=== PATIENT | female | born 1960 | race Caucasian/White ===

== ENCOUNTER 2021-07-18 15:13 | Observation (INO) | payer OTHER, SELFPAY ==
[2021-07-18] VITALS (9 sets, daily range): BP systolic 123–189; BP diastolic 71–100; PULSE 93–164; RESP 18; TEMP 36.7–36.8; O2SAT 92–99; BMI 25.8; BMI 29.2; BMI 29.7
--- NOTE | 2021-07-18 15:11 | ECG_ITS ---
APPROVED REPORT Exam: Resting ECG HR:145 bpm ECG Measurements Heart Rate 145 AXES QRSd 85 QRS -20 QT 290 T 50 QTc 374 Conclusion ATRIAL FLUTTER/TACHYCARDIA WITH RAPID VENTRICULAR RESPONSE LOW QRS VOLTAGE IN PRECORDIAL LEADS [QRS DEFLECTION < 1.0 mV IN CHEST LEADS] ANTEROSEPTAL MYOCARDIAL INFARCTION , PROBABLY OLD [40+ ms Q WAVE IN V1-V4] ABNORMAL ECG UNCONFIRMED REPORT Electronically signed by : Rudolph Young MD 07/19/2021 16:44:08
[2021-07-18 15:38] LABS: Basophils # 0.1 K/mm3 (0-0.2); Basophils % 0.8 % (0.1-2.0); Eosinophils % 0.2 % (0.1-12.0); Hematocrit 47.4 % (37.0-47.0); Hemoglobin 15.3 g/dL (12.2-16.2); Lymphocytes # 1.2 K/mm3 (0.7-4.5); Lymphocytes % 14.2 % (10-50); Mean Corpuscular HGB Conc 32.3 g/dL (31.8-35.4); Mean Corpuscular Hemoglobin 35.6 pg (27.0-31.2); Mean Platelet Volume 7.9 fl (7.4-10.4); Monocytes # 0.4 K/mm3 (0.1-1.0); Monocytes % 4.4 % (1.7-9.3); Neutrophils % 80.4 % (37.0-80.0); Platelet Count 324 K/mm3 (142-424); Red Blood Count 4.31 M/mm3 (4.20-5.40); Red Cell Distribution Width 13.4 % (11.5-17.5); White Blood Count 8.7 K/mm3 (4.8-10.8)
[2021-07-18 15:43] LABS: Chloride 98 mmol/L (98-107); Potassium 3.5 mmoL/L (3.5-5.1); Sodium 135 mmol/L (136-145)
[2021-07-18 15:45] LABS: Alanine Aminotransferase 85 U/L (12-78); Aspartate Amino Transferase 149 U/L (14-36); Blood Urea Nitrogen 6 mg/dl (7-17); Creatinine Clearance Estimated 72 mL/min (50-200); Estimated Glomerular Filt Rate 73 ml/min (>60); GFR (African American) 88 ML/MIN (>60)
[2021-07-18 15:46] LABS: Albumin/Globulin Ratio 1.4 (1.1-1.8); Alkaline Phosphatase 97 U/L (38-126); Anion Gap 25.5 mEq/L (5-15); Bilirubin,Total 0.8 mg/dl (0.2-1.3); Calcium 8.9 mg/dl (8.4-10.2); Carbon Dioxide 15 mmol/L (22.0-30.0); Globulin 3.5 g/dL (1.3-3.2); Glucose 136 mg/dl (74-100); Total Protein,Serum 8.5 g/dl (6.3-8.2)
[2021-07-18 15:47] LABS: Ethyl Alcohol 67 mg/dl (0-10)
--- NOTE | 2021-07-18 15:47 | XR_ITS ---
FINAL REPORT TECHNIQUE: Single view chest CLINICAL HISTORY: tachy, szr, nonsmoker, no sx to chest FINDINGS: A single view of the chest was obtained. The heart and mediastinum are within normal limits. The lungs are clear. There is no pneumothorax. Osseous structures are unremarkable. IMPRESSION: No acute cardiopulmonary process. Reviewed, Interpreted and Dictated by Jaylan Amezcua III, MD Transcribed by Johanna Mcbride Authenticated by Jaylan Amezcua III, MD on 07/18/2021 04:52:56 PM [facility]
--- NOTE | 2021-07-18 15:48 | HMH.EDGENADL ---
ED Disposition Clinical Impression: Seizure Alcohol withdrawal Qualifiers: Complication of substance-induced condition: with unspecified complication Qualified Code(s): F10.239 - Alcohol dependence with withdrawal, unspecified Disposition: Admitted As Inpatient Condition on Discharge: Good - Critical Care Critical Care Time: No Attestation: On 07/18/21, the high probability of a clinically significant, sudden or life threatening deterioration of the following system(s) required my full and direct attention, intervention and personal management. The time I documented below is in addition to time spent performing reported procedures but includes the following listed in this critical care notation. Medical Decision Making - Medical Records Medical records reviewed: Yes: I reviewed the patient's medical records. - Duy Inquiry Pt receiving controlled substance: No Vital Signs: 07/18/21 15:20 07/18/21 16:00 07/18/21 16:30 Temperature 98.2 F Temperature Source Oral Pulse Rate 146 H 127 H Pulse Rate [Left Radial] 164 H Respiratory Rate 18 Blood Pressure 189/100 H 145/83 H Blood Pressure [Right Arm] 173/98 H Blood Pressure Mean [Right Arm] 123 02 Sat by Pulse Oximetry 97 99 95 Oxygen Delivery Method Room Air Room Air 07/18/21 17:00 07/18/21 17:30 07/18/21 18:00 Temperature Temperature Source Pulse Rate 129 H 129 H 115 H Pulse Rate [Left Radial] Respiratory Rate Blood Pressure 126/73 152/85 H 123/71 Blood Pressure [Right Arm] Blood Pressure Mean [Right Arm] 02 Sat by Pulse Oximetry 97 95 92 L Oxygen Delivery Method 07/18/21 18:30 07/18/21 18:44 Temperature 98.2 F Temperature Source Oral Pulse Rate 113 H 113 H Pulse Rate [Left Radial] Respiratory Rate 18 Blood Pressure 127/73 127/73 Blood Pressure [Right Arm] Blood Pressure Mean [Right Arm] 02 Sat by Pulse Oximetry 96 Oxygen Delivery Method Room Air - Lab Data Lab Results 07/18/21 15:30: WBC 8.7, RBC 4.31, Hgb 15.3, Hct 47.4 H, MCV 110.0 H, MCH 35.6 H, MCHC 32.3, RDW 13.4, Plt Count 324, MPV 7.9, Neut % (Auto) 80.4 H, Lymph % (Auto) 14.2, [place] % (Auto) 4.4, Eos % (Auto) 0.2, Baso % (Auto) 0.8, Neut # (Auto) 7.0, Lymph # (Auto) 1.2, [place] # (Auto) 0.4, Eos # (Auto) 0.0, Baso # (Auto) 0.1 07/18/21 15:30: Sodium 135 L, Potassium 3.5, Chloride 98, Carbon Dioxide 15 L, Anion Gap 25.5 H, BUN 6 L, Creatinine 0.80, Estimated Creat Clear 72, Estimated GFR 73, Est GFR ( Amer) 88, Glucose 136 H, Calcium 8.9, Total Bilirubin 0.8, AST 149 H, ALT 85 H, Alkaline Phosphatase 97, Troponin I 0.02, Total Protein 8.5 H, Albumin 5.0, Globulin 3.5 H, Albumin/Globulin Ratio 1.4 07/18/21 15:30: Plasma/Serum Alcohol 67 H 07/18/21 15:34: Phosphorus 3.6, Magnesium 2.1 07/18/21 16:16: SARS-CoV-2 (PCR) Not detected, Influenza A Untype (PCR) Not detected, Influenza Type B (PCR) Not detected Result diagrams: 07/19/21 05:26 07/19/21 05:26 Orders (Tests/Meds): ED MEDICATIONS Generic Name Dose Route Start Last Admin Trade Name Freq PRN Reason Stop Dose Admin Acetaminophen 650 mg 07/19/21 02:59 07/18/21 23:15 Acetaminophen 325mg Tab PO 08/18/21 02:58 650 mg Q6HP PRN Administration Mild Pain Clonidine HCl 0.1 mg 07/18/21 18:59 Clonidine 0.1mg Tablet PO 08/17/21 18:58 BID PRN Adrenergic Symptoms Folic Acid 1 mg 07/18/21 18:35 07/18/21 20:05 Folic Acid 1mg Tablet PO 07/18/21 18:36 Not Given ONCE ONE Folic Acid 1 mg 07/18/21 18:35 07/18/21 20:11 Folic Acid 1mg Tablet PO 08/17/21 18:34 Not Given DAILY VENU Folic Acid 1 mg 07/19/21 09:00 Folic Acid 1mg Tablet PO 08/18/21 08:59 DAILY VENU Levetiracetam 1,000 mg/ Sodium 110 mls @ 220 mls/hr 07/18/21 18:35 07/18/21 20:04 Chloride IV 07/18/21 19:04 Not Given ONCE ONE Lorazepam 1 mg 07/18/21 18:35 07/18/21 20:09 Lorazepam 2mg/Ml Vial IV 07/18/21 18:36 1 mg ONCE ONE Administration
[2021-07-18 15:58] LABS: Troponin I 0.02 ng/ml (0.00-0.034)
--- NOTE | 2021-07-18 16:04 | PC.NURSE ---
Radiology at bedside
[2021-07-18 16:25] LABS: Coronavirus 19, PCR Not Detected (NotDetected); Influenza A, PCR Not Detected (NotDetected); Influenza B, PCR Not Detected (NotDetected)
--- NOTE | 2021-07-18 16:39 | ECG_ITS ---
APPROVED REPORT Exam: Resting ECG HR:119 bpm ECG Measurements Heart Rate 119 AXES [place] 166 P 63 QRSd 89 QRS 1 QT 333 T 55 QTc 404 Conclusion SINUS TACHYCARDIA LOW QRS VOLTAGE IN PRECORDIAL LEADS [QRS DEFLECTION < 1.0 mV IN CHEST LEADS] SEPTAL MYOCARDIAL INFARCTION , PROBABLY OLD [40+ ms Q WAVE IN V1/V2] ABNORMAL ECG UNCONFIRMED REPORT Electronically signed by : Rudolph Young MD 07/19/2021 16:43:55
--- NOTE | 2021-07-18 18:03 | PC.NURSE ---
Patient on bedpan
--- NOTE | 2021-07-18 18:23 | PC.NURSE ---
called report to cuco quintanilla
[2021-07-18 18:47] LABS: Magnesium 2.1 mg/dl (1.6-2.3); Phosphorous 3.6 mg/dl (2.5-4.5)
[2021-07-19] VITALS: BP 115/82; PULSE 96; RESP 18; TEMP 37.1; O2SAT 95
--- NOTE | 2021-07-19 02:34 | PC.NURSE ---
PATIENT SLIGHTLY CONFUSED. GOT OUT OF BED AND CAME OUT OF ROOM ASKING IF SHE WAS GETTING A BREAKFAST TRAY. INFORMED HER OF TIME AND OFFERED HER A SNACK. PATIENT DECLINED AT THIS TIME. ASSISTED PATIENT BACK TO BED. PATIENT SITTING UP IN BED WATCHING TV AT THIS TIME.
[2021-07-19 04:00] VITALS: BP 113/80; PULSE 83; RESP 16; TEMP 36.7; O2SAT 98
[2021-07-19 05:01] VITALS: BMI 29.4
--- NOTE | 2021-07-19 05:07 | PC.NURSE ---
PATIENT HAS BEEN RESTLESS THROUGHOUT THE SHIFT. SHE AMBULATED A COUPLE TIMES TO THE DOOR AND WAS CONFUSED. REORIENTED EASILY. PATIENT DISLODGED IV SITE DURING PERIOD OF CONFUSION. PATIENT WAS GIVEN A TOTAL BATH AND LINENS CHANGED THIS SHIFT. SHE HAD ONE INCONTINENT STOOL EPISODE. PATIENT HAS USED THE BSC THE REMAINDER OF THE SHIFT. CIWA:2. NO ACU
[2021-07-19 05:11] VITALS: PULSE 80
[2021-07-19 05:50] LABS: Basophils % 0.2 % (0.1-2.0); Eosinophils # 0.1 K/mm3 (0.0-0.4); Eosinophils % 0.9 % (0.1-12.0); Hematocrit 43.2 % (37.0-47.0); Lymphocytes # 0.9 K/mm3 (0.7-4.5); Lymphocytes % 17.8 % (10-50); Mean Corpuscular HGB Conc 31.8 g/dL (31.8-35.4); Mean Corpuscular Hemoglobin 35.8 pg (27.0-31.2); Mean Corpuscular Volume 112.5 fl (81-99); Mean Platelet Volume 8.2 fl (7.4-10.4); Monocytes # 0.3 K/mm3 (0.1-1.0); Neutrophils # 3.9 K/mm3 (1.8-7.8); Neutrophils % 74.9 % (37.0-80.0); Platelet Count 221 K/mm3 (142-424); Red Blood Count 3.84 M/mm3 (4.20-5.40); Red Cell Distribution Width 13.5 % (11.5-17.5); White Blood Count 5.2 K/mm3 (4.8-10.8)
[2021-07-19 05:53] LABS: Chloride 108 mmol/L (98-107); Potassium 3.7 mmoL/L (3.5-5.1); Sodium 137 mmol/L (136-145)
[2021-07-19 05:56] LABS: Alanine Aminotransferase 60 U/L (12-78); Albumin/Globulin Ratio 1.4 (1.1-1.8); Alkaline Phosphatase 71 U/L (38-126); Anion Gap 8.7 mEq/L (5-15); Aspartate Amino Transferase 86 U/L (14-36); Bilirubin,Total 1.2 mg/dl (0.2-1.3); Blood Urea Nitrogen 8 mg/dl (7-17); Carbon Dioxide 24 mmol/L (22.0-30.0); Creatinine Clearance Estimated 68 mL/min (50-200); Estimated Glomerular Filt Rate 85 ml/min (>60); GFR (African American) 103 ML/MIN (>60); Globulin 2.9 g/dL (1.3-3.2); Total Protein,Serum 6.9 g/dl (6.3-8.2)
[2021-07-19 05:57] LABS: Calcium 8.4 mg/dl (8.4-10.2); Glucose 91 mg/dl (74-100)
[2021-07-19 05:59] LABS: Hemoglobin 13.8 g/dL (12.2-16.2)
--- NOTE | 2021-07-19 06:06 | PC.NURSE ---
PATIENT AMBULATING IN ROOM. REPORTS SHE IS RESTLESS. ASSISTED PATIENT BACK TO BED. INSTRUCTED PATIENT TO CALL OUT FOR ASSISTANCE NEEDED.
--- NOTE | 2021-07-19 06:40 | PC.NURSE ---
DR. HAGER AT BEDSIDE ROUNDING.
--- NOTE | 2021-07-19 07:25 | HMH.PHAVTE ---
[facility] Pharmacy VTE Monitoring - Patient Demographics Admission date: 07/18/21 Report Date: 07/19/21 Time: 07:25 Allergies/Adverse Reactions: Patient Allergies amoxicillin Allergy (Mild, Verified 07/18/21 19:46) ANAPHYLACTIC SHOCK cephalexin [From Keflex] Allergy (Mild, Verified 07/18/21 19:46) S-ANAPHYLACTIC SHOCK ciprofloxacin [From Cipro] Allergy (Mild, Verified 07/18/21 19:46) ANAPHYLACTIC SHOCK erythromycin base Allergy (Mild, Verified 07/18/21 19:46) ANAPHYLACTIC SHOCK Sulfa (Sulfonamide Antibiotics) Allergy (Mild, Verified 07/18/21 19:46) ANAPHYLACTIC SHOCK Tetanus Vaccines and Toxoid Allergy (Mild, Verified 07/18/21 19:46) ANAPHYLACTIC SHOCK Height: 1.57 m Weight: 72.5 kg Patient Problems: Current Active Problems Seizure (Acute) Alcohol withdrawal (Acute) - VTE Risk Labs: VTE Related Lab Results Hgb 13.8 g/dL (12.2-16.2) 07/19/21 05:26 Hct 43.2 % (37.0-47.0) 07/19/21 05:26 Plt Count 221 K/mm3 (142-424) D 07/19/21 05:26 BUN 8 mg/dl (7-17) D 07/19/21 05:26 Creatinine 0.70 mg/dl (0.52-1.04) 07/19/21 05:26 Estimated Creat Clear 68 mL/min (50-200) 07/19/21 05:26 VTE Score: 1 VTE Risk Level: Very Low Risk - Prophylaxis VTE Prophylaxis Ordered?: Yes Types of VTE Prophylaxis: TEDS Knee High Location of Applied Device: Bilateral Lower Extremeties
--- NOTE | 2021-07-19 07:47 | HMH.HPDC ---
General - General Admission date:: 07/18/21 Discharge date: 07/19/21 *Admission Date: 07/18/21 *Chief complaint: Seizure-like activity *History of present illness: 60-year-old female with diagnosis of complex partial seizures presented to the emergency department after having seizure-like activity at home that was not typical of her normal complex partial seizures. Patient states her usual seizure starts with an aura of strange sensation and then tingling and abnormal movements in the right arm and leg. Yesterday there was an aura but patient repeatedly fails to describe her seizure that was different . She did have pretty significant vertigo yesterday with associated vomiting. She reports vertigo occurs every 1 to 2 weeks and is generally transient. Her neurologist is Dr. Nica Rudd. Her primary care provider is Aspen Alcala APRN. Patient reports over the last year she is fallen on hard times due to the loss of multiple family members during the pandemic as well as leaving her previous job. Lack of work and health insurance has made her medication quite costly and the Topamax extended release that the patient takes for her complex partial seizures has been spread out as patient does not take it regularly. She reports the medication cost approximately $3000 per month. She has not contacted any of her medical providers regarding alternatives. In the emergency department patient was tremulous with tachycardia and elevated blood pressure. It was revealed in the ER that patient drinks 4 drinks of vodka per day. Through further discussion patient considers to drink approximately 4 ounces. Patient was given Ativan with improvement in tremulouness, tachycardia and blood pressure. She was continued on scheduled Ativan overnight along with as needed Ativan for elevated CIWA scales. This morning patient reports feeling at baseline. She is ambulated in her room without difficulty. [facility] History I have reviewed the patient's past medical history: Yes Medical History: Reports:: Seizures *Have you ever received a pneumonia vaccine?: No *Have you received a flu vaccine this season?: Yes Other Surgeries: Yes: No Previous Surgery - *Social History Last grade of school completed: Advanced degree Smoking Status: Never smoker Alcohol Intake: current Alcohol Intake Frequency:: 3 or more drinks per day *Occupational Status:: employed *Travel in the last 8 weeks: None Family Hx:: Non-contributory Review of Systems - Review of Systems Review of systems:: pertinent systems reviewed and negative unless documented below Exam Vital signs and Labs for Last 24 Hours: Temp Pulse Resp BP Pulse Ox 98.1 F 80 16 113/80 98 07/19/21 04:00 07/19/21 05:11 07/19/21 04:00 07/19/21 04:00 07/19/21 04:00 Laboratory Results - last 24 hr 07/18/21 15:30: WBC 8.7, RBC 4.31, Hgb 15.3, Hct 47.4 H, MCV 110.0 H, MCH 35.6 H, MCHC 32.3, RDW 13.4, Plt Count 324, MPV 7.9, Neut % (Auto) 80.4 H, Lymph % (Auto) 14.2, [place] % (Auto) 4.4, Eos % (Auto) 0.2, Baso % (Auto) 0.8, Neut # (Auto) 7.0, Lymph # (Auto) 1.2, [place] # (Auto) 0.4, Eos # (Auto) 0.0, Baso # (Auto) 0.1 07/18/21 15:30: Sodium 135 L, Potassium 3.5, Chloride 98, Carbon Dioxide 15 L, Anion Gap 25.5 H, BUN 6 L, Creatinine 0.80, Estimated Creat Clear 72, Estimated GFR 73, Est GFR ( Amer) 88, Glucose 136 H, Calcium 8.9, Total Bilirubin 0.8, AST 149 H, ALT 85 H, Alkaline Phosphatase 97, Troponin I 0.02, Total Protein 8.5 H, Albumin 5.0, Globulin 3.5 H, Albumin/Globulin Ratio 1.4 07/18/21 15:30: Plasma/Serum Alcohol 67 H 07/18/21 15:34: Phosphorus 3.6, Magnesium 2.1 07/18/21 16:16: SARS-CoV-2 (PCR) Not detected, Influenza A Untype (PCR) Not detected, Influenza Type B (PCR) Not detected 07/19/21 05:26: WBC 5.2 D, RBC 3.84 L, Hgb 13.8, Hct 43.2, MCV 112.5 H, MCH 35.8 H, MCHC 31.8, RDW 13.5, Plt Count 221 D, MPV 8.2, Neut % (Auto) 74.9, Lymph % (Auto) 17.8, [place] % (Auto) 6.0, Eos % (Auto) 0.9, Baso % (A
[2021-07-19 08:00] VITALS: BP 116/73; PULSE 103; PULSE 99; RESP 20; O2SAT 99
--- NOTE | 2021-07-19 09:10 | HMH.PHAINT ---
home medication list verified using list from [facility] and pt interview
== END 2021-07-19 09:42 | disposition home or self-care (01) ==
LOC: ER 16:49 → ICU 18:28
PROVIDERS: Admitting Provider Family Medicine; Emergency Provider Emergency Medicine; PCP Nurse Practitioner Family; Visit Provider Family Medicine
DX: F10.239 Alcohol dependence with withdrawal, unspecified (principal); Y90.3 Blood alcohol level of 60-79 mg/100 ml; G40.909 Epilepsy, unspecified, not intractable, without status epilepticus; Z20.822 Contact with and (suspected) exposure to COVID-19
CPT/HCPCS: 36415; 71045; 80053; 83735; 84100; 84484; 85025; 93005; 96365; 96366; 96375; 99284; C9803; G0378; J1953; U0003; U0005

== ENCOUNTER 2022-01-29 08:23 | Emergency (ER) | payer OTHER, SELFPAY ==
[2022-01-29 08:23] VITALS: BP 157/96; PULSE 114; RESP 18; TEMP 36.8; O2SAT 100; BMI 29.2
--- NOTE | 2022-01-29 08:28 | PC.NURSE ---
Retrieved pt from upstairs pt room, had seizure, RN montse in ED room attempting to get IV access
[2022-01-29 08:35] VITALS: BP 157/96; PULSE 111; RESP 20; O2SAT 100
--- NOTE | 2022-01-29 08:35 | PC.NURSE ---
Seizure pads in place and daughter at bedside. Warm blankets provided, pt placed back onto monitor and labs have been sent.
--- NOTE | 2022-01-29 08:37 | XR_ITS ---
PROCEDURE INFORMATION: Exam: XR Chest Exam date and time: 01/29/2022 9:08 AM Age: 61 years old Clinical indication: Other: Siezure; Patient HX: 0 chest comoplaints; Additional info: Seizure TECHNIQUE: Imaging protocol: Radiologic exam of the chest. Views: 1 view. COMPARISON: CR XR CHEST PORTABLE 07/18/2021 4:01 PM FINDINGS: Lungs: Mild interstitial prominence and chronic granulomatous disease. Pleural spaces: No pleural effusion. Heart/Mediastinum: No cardiomegaly. Bones/joints: Unremarkable. When correlating with the previous study, no significant interval changes are present. IMPRESSION: Stable appearance of the chest, not significantly changed from 07/18/21.
--- NOTE | 2022-01-29 08:44 | HMH.EDGENADL ---
ED Disposition Clinical Impression: Seizure disorder Disposition: Home, Self-Care Condition on Discharge: Good Instructions: DI for Seizure Disorder -- Adult Additional Instructions: Ativan as prescribed. Continue Keppra. Follow up with your PCP this week for Keppra level results and further care. Call tomorrow. Follow-up with neurology, Dr. Valentin, call for appointment. Additional instructions for SEIZURE OR LOSS OF CONSCIOUSNESS/POSSIBLE SEIZURE: NO DRIVING, BIKE RIDING, SWIMMING, TUB BATHING, LADDERS UNTIL CLEARED BY DOCTOR. NO ALCOHOL OR STREET DRUGS. GET 8 HOURS OF SLEEP PER NIGHT. RETURN IF SEIZURE RECURS. Prescriptions: LORazepam [Ativan 0.5mg tablet] 0.5 mg PO BID #6 tablet Transmission Status: Sent to [id number] Referrals: Provider,MD Aime [Referring] - Nyasia Valentin MD [Staff Physician] - - Critical Care Critical Care Time: No Attestation: On 01/29/22, the high probability of a clinically significant, sudden or life threatening deterioration of the following system(s) required my full and direct attention, intervention and personal management. The time I documented below is in addition to time spent performing reported procedures but includes the following listed in this critical care notation. Medical Decision Making - Duy Inquiry Pt receiving controlled substance: Yes Duy was queried for this patient: Yes Risks and benefits of using a controlled substance: were not discussed with pt by me Vital Signs: 01/29/22 08:23 01/29/22 08:35 01/29/22 09:00 Temperature 98.3 F Temperature Source Oral Pulse Rate 111 H 104 H Pulse Rate [Left Radial] 114 H Respiratory Rate 18 20 16 Blood Pressure 157/96 H 157/97 H Blood Pressure [Right Arm] 157/96 H Blood Pressure Mean 120 128 Blood Pressure Mean [Right Arm] 116 Blood Pressure Source [Right Arm] Automatic Cuff Blood Pressure Position [Right Arm] Sitting 02 Sat by Pulse Oximetry 100 100 100 Oxygen Delivery Method Room Air 01/29/22 09:31 Temperature Temperature Source Pulse Rate 102 H Pulse Rate [Left Radial] Respiratory Rate 17 Blood Pressure 132/87 Blood Pressure [Right Arm] Blood Pressure Mean 102 Blood Pressure Mean [Right Arm] Blood Pressure Source [Right Arm] Blood Pressure Position [Right Arm] 02 Sat by Pulse Oximetry 99 Oxygen Delivery Method - Lab Data Lab Results 01/29/22 08:30: WBC 10.3, RBC 3.79 L, Hgb 14.0, Hct 44.2, MCV 116.5 H, MCH 37.0 H, MCHC 31.7 L, RDW 14.1, Plt Count 366, MPV 8.5, Neut % (Auto) 73.7, Lymph % (Auto) 20.8, [place] % (Auto) 3.1, Eos % (Auto) 1.5, Baso % (Auto) 0.8, Neut # (Auto) 7.6, Lymph # (Auto) 2.1, [place] # (Auto) 0.3, Eos # (Auto) 0.2, Baso # (Auto) 0.1 01/29/22 08:30: Sodium 132 L, Potassium 3.2 L, Chloride 95 L, Carbon Dioxide 16 L, Anion Gap 24.2 H, BUN 3 L, Creatinine 0.50 L, Estimated Creat Clear 67, Estimated GFR 125, Est GFR ( Amer) 151, Glucose 195 H, Calcium 9.7, Total Bilirubin 1.6 H, AST 124 H, ALT 59, Alkaline Phosphatase 271 H, Total Protein 8.4 H, Albumin 4.5, Globulin 3.9 H, Albumin/Globulin Ratio 1.2 01/29/22 08:30: Plasma/Serum Alcohol < 10 01/29/22 09:10: Urine Color Yellow, Urine Appearance Clear, Urine pH 6.5, Ur Specific [place] <= 1.005, Urine Protein Negative, Urine Glucose (UA) Negative, Urine Ketones Negative, Urine Blood Negative, Urine Nitrate Negative, Urine Bilirubin Negative, Urine Urobilinogen 1.0, Ur Leukocyte Esterase Negative, Urine WBC 3-5, Ur Squamous Epith Cells 3-5, Urine Bacteria Trace Result diagrams: 01/29/22 08:30 01/29/22 08:30 Orders (Tests/Meds): ED MEDICATIONS Generic Name Dose Route Start Last Admin Trade Name Freq PRN Reason Stop Dose Admin Sodium Chloride 10 ml 01/29/22 08:37 Sodium Chloride 0.9% 10ml Flush Syringe IV 02/28/22 08:36 NEEDED PRN Maintain IV Site Sodium Chloride 10 ml 01/29/22 08:44 Sodium Chloride 0.9% 10ml Vial IV 02/28/22 08:43 NEE
--- NOTE | 2022-01-29 08:45 | PC.NURSE ---
daughter switched with pt sister for visitation
[2022-01-29 08:47] LABS: Basophils # 0.1 K/mm3 (0-0.2); Basophils % 0.8 % (0.1-2.0); Chloride 95 mmol/L (98-107); Eosinophils # 0.2 K/mm3 (0.0-0.4); Eosinophils % 1.5 % (0.1-12.0); Hematocrit 44.2 % (37.0-47.0); Lymphocytes # 2.1 K/mm3 (0.7-4.5); Lymphocytes % 20.8 % (10-50); Mean Corpuscular HGB Conc 31.7 g/dL (31.8-35.4); Mean Corpuscular Volume 116.5 fl (81-99); Mean Platelet Volume 8.5 fl (7.4-10.4); Monocytes # 0.3 K/mm3 (0.1-1.0); Monocytes % 3.1 % (1.7-9.3); Neutrophils # 7.6 K/mm3 (1.8-7.8); Neutrophils % 73.7 % (37.0-80.0); Platelet Count 366 K/mm3 (142-424); Potassium 3.2 mmoL/L (3.5-5.1); Red Blood Count 3.79 M/mm3 (4.20-5.40); Red Cell Distribution Width 14.1 % (11.5-17.5); Sodium 132 mmol/L (136-145); White Blood Count 10.3 K/mm3 (4.8-10.8)
[2022-01-29 08:50] LABS: Alanine Aminotransferase 59 U/L (12-78); Albumin Level 4.5 g/dl (3.5-5.0); Albumin/Globulin Ratio 1.2 (1.1-1.8); Alkaline Phosphatase 271 U/L (38-126); Anion Gap 24.2 mEq/L (5-15); Aspartate Amino Transferase 124 U/L (14-36); Bilirubin,Total 1.6 mg/dl (0.2-1.3); Blood Urea Nitrogen 3 mg/dl (7-17); Calcium 9.7 mg/dl (8.4-10.2); Carbon Dioxide 16 mmol/L (22.0-30.0); Creatinine Clearance Estimated 67 mL/min (50-200); Estimated Glomerular Filt Rate 125 ml/min (>60); GFR (African American) 151 ML/MIN (>60); Globulin 3.9 g/dL (1.3-3.2); Glucose 195 mg/dl (74-100); Total Protein,Serum 8.4 g/dl (6.3-8.2)
[2022-01-29 09:00] VITALS: BP 157/97; PULSE 104; RESP 16; O2SAT 100
--- NOTE | 2022-01-29 09:02 | PC.NURSE ---
RN @ [facility] for meds
[2022-01-29 09:07] LABS: Ethyl Alcohol < 10 mg/dl (0-10)
--- NOTE | 2022-01-29 09:09 | PC.NURSE ---
Mario September ambulated pt to the restroom and pt was able to produce urine sample
--- NOTE | 2022-01-29 09:19 | PC.NURSE ---
pt refusing her ativan at this time due to how it makes her feel and she states she is starting to clear up and would like to wait on the ativan. family wanting to update the MD about pt TIA a few months ago and wanting to get a referral to a neurologist. MD aware
[2022-01-29 09:20] LABS: Microscopic, Urine URINE MICROSCOPIC (MICROSCOPIC)
[2022-01-29 09:31] VITALS: BP 132/87; PULSE 102; RESP 17; O2SAT 99
[2022-01-29 09:32] LABS: Appearance,Urine CLEAR (Clear); Bilirubin,Urine Negative (Negative); Blood, Urine Negative (Negative); Color,Urine YELLOW (Yellow); Glucose,Urine (UA) Negative (Negative); Ketones,Urine Negative (Negative); Leukocyte Esterase,Urine Negative (Negative); Nitrate,Urine Negative (Negative); PH,Urine 6.5 (5.0-8.5); Protein,Urine Negative (Negative); Specific Gravity, Urine <= 1.005 (1.005-1.030)
[2022-01-29 09:47] LABS: Bacteria,Urine Trace /lpf
[2022-01-29 10:01] VITALS: BP 141/88; PULSE 98; RESP 15; TEMP 36.8; O2SAT 99
[2022-01-29 10:12] LABS: Barbiturates Screen,Urine Negative ng/ml (<200); Benzodiazepines Screen,Urine Negative ng/ml (<200)
[2022-01-29 10:13] LABS: Amphetamine/Metha Screen,Urine Negative ng/ml (<1000)
[2022-01-29 10:14] LABS: Cannabinoid Screen,Urine Negative ng/ml (<50); Methadone Screen,Urine Negative ng/ml (<300)
[2022-01-29 10:15] LABS: Cocaine Screen,Urine Negative ng/ml (<300); Opiate Screen,Urine Negative ng/ml (<300)
[2022-01-29 10:16] LABS: Phencyclidine Screen,Urine Negative ng/ml (<25)
[2022-02-02 16:13] LABS: Levetiracetam (Keppra) 16.7 ug/mL (10.0-40.0)
== END 2022-01-29 10:08 | disposition home or self-care (01) ==
PROVIDERS: Emergency Provider Emergency Medicine; PCP Nurse Practitioner Family
DX: G40.909 Epilepsy, unspecified, not intractable, without status epilepticus (principal); Z79.899 Other long term (current) drug therapy; Z88.1 Allergy status to other antibiotic agents; Z88.2 Allergy status to sulfonamides; Z88.7 Allergy status to serum and vaccine
CPT/HCPCS: 71045; 80053; 80177; 80305; 81001; 85025; 96374; 99284; J2405

== ENCOUNTER 2022-06-12 14:07 | Emergency (ER) | payer OTHER, SELFPAY ==
[2022-06-12] VITALS (7 sets, daily range): BP systolic 126–157; BP diastolic 78–92; PULSE 116–146; RESP 15–21; TEMP 36.9; O2SAT 92–100; BMI 24.0
--- NOTE | 2022-06-12 14:26 | CT_ITS ---
PROCEDURE INFORMATION: Exam: CT Cervical Spine Without Contrast Exam date and time: 06/12/2022 2:53 PM Age: 61 years old Clinical indication: Other: Seizure TECHNIQUE: Imaging protocol: Computed tomography of the cervical spine without contrast. Radiation optimization: All CT scans at this facility use at least one of these dose optimization techniques: automated exposure control; mA and/or kV adjustment per patient size (includes targeted exams where dose is matched to clinical indication); or iterative reconstruction. COMPARISON: CT HEAD/BRAIN WO CON 06/12/2022 2:50 PM FINDINGS: Bones/joints: Mild bilateral neuroforaminal narrowing C2-C7. Bony fusion at C2-C3. [id number] disc space narrowing C5-C7 with small anterior and posterior osteophytes. Trachea: Probable small right posterior tracheal air cyst Lungs: Lung apices are normal. Soft tissues: Unremarkable. IMPRESSION: No evidence of cervical spine fracture. Remainder of findings as described.
--- NOTE | 2022-06-12 14:26 | CT_ITS ---
PROCEDURE INFORMATION: Exam: CT Head Without Contrast Exam date and time: 06/12/2022 2:50 PM Age: 61 years old Clinical indication: Other: Seizure TECHNIQUE: Imaging protocol: Computed tomography of the head without contrast. Radiation optimization: All CT scans at this facility use at least one of these dose optimization techniques: automated exposure control; mA and/or kV adjustment per patient size (includes targeted exams where dose is matched to clinical indication); or iterative reconstruction. COMPARISON: No relevant prior studies available. FINDINGS: Brain: Prominent sulci. Patchy hypodensity of the cerebral white matter which are nonspecific but likely secondary to microangiopathic changes. Cerebral ventricles: The ventricles are prominent secondary to diffuse volume loss/atrophy. Paranasal sinuses: Visualized sinuses are unremarkable. No fluid levels. Mastoid air cells: Visualized mastoid air cells are well aerated. Bones/joints: Unremarkable. No acute fracture. Soft tissues: Unremarkable. IMPRESSION: Chronic age related changes but no evidence of acute intracranial pathology.
--- NOTE | 2022-06-12 14:28 | PC.NURSE ---
pt starting to wake up some, eye opening response, no verbal response at this time will continue to monitor seizure pads on Bed rails
--- NOTE | 2022-06-12 14:47 | PC.NURSE ---
PATINT TRANSPORTED TO CT SCAN
[2022-06-12 14:55] LABS: Basophils # 0.1 K/mm3 (0-0.2); Basophils % 0.8 % (0.1-2.0); Chloride 92 mmol/L (98-107); Eosinophils % 0.6 % (0.1-12.0); Hematocrit 40.6 % (37.0-47.0); Hemoglobin 13.3 g/dL (12.2-16.2); Lymphocytes # 0.5 K/mm3 (0.7-4.5); Lymphocytes % 8.2 % (10-50); Mean Corpuscular HGB Conc 32.7 g/dL (31.8-35.4); Mean Corpuscular Hemoglobin 39.1 pg (27.0-31.2); Mean Corpuscular Volume 119.6 fl (81-99); Mean Platelet Volume 9.7 fl (7.4-10.4); Monocytes # 0.3 K/mm3 (0.1-1.0); Monocytes % 4.2 % (1.7-9.3); Neutrophils # 5.6 K/mm3 (1.8-7.8); Neutrophils % 86.2 % (37.0-80.0); Platelet Count 222 K/mm3 (142-424); Potassium 3.8 mmoL/L (3.5-5.1); Red Cell Distribution Width 15.1 % (11.5-17.5); Sodium 135 mmol/L (136-145); White Blood Count 6.5 K/mm3 (4.8-10.8)
[2022-06-12 14:57] LABS: Blood Urea Nitrogen 4 mg/dl (7-17); Estimated Glomerular Filt Rate 85 ml/min (>60); GFR (African American) 103 ML/MIN (>60)
[2022-06-12 14:58] LABS: Alanine Aminotransferase 60 U/L (12-78); Albumin Level 4.4 g/dl (3.5-5.0); Albumin/Globulin Ratio 1.3 (1.1-1.8); Alkaline Phosphatase 247 U/L (38-126); Anion Gap 30.8 mEq/L (5-15); Aspartate Amino Transferase 196 U/L (14-36); Bilirubin,Total 3.2 mg/dl (0.2-1.3); Calcium 9.3 mg/dl (8.4-10.2); Carbon Dioxide 16 mmol/L (22.0-30.0); Globulin 3.4 g/dL (1.3-3.2); Glucose 167 mg/dl (74-100); Total Protein,Serum 7.8 g/dl (6.3-8.2)
[2022-06-12 15:00] LABS: Lactic Acid 11.8 mmol/L (0.7-2.1)
--- NOTE | 2022-06-12 15:09 | ECG_ITS ---
APPROVED REPORT Exam: Resting ECG HR:147 bpm ECG Measurements Heart Rate [address] 126 P 50 QRSd 94 QRS 16 QT 307 T 50 QTc 391 Conclusion SINUS TACHYCARDIA, POSSIBLE ATRIAL FLUTTER LOW QRS VOLTAGE IN PRECORDIAL LEADS [QRS DEFLECTION < 1.0 mV IN CHEST LEADS] POSSIBLE RIGHT VENTRICULAR CONDUCTION DELAY [RSR (QR) IN V1/V2] MODERATE ST DEPRESSION [0.05+ mV ST DEPRESSION] ABNORMAL ECG UNCONFIRMED REPORT Electronically signed by : Rudolph Young MD 06/13/2022 20:12:18
[2022-06-12 15:18] LABS: MANUAL DIFFERENTIAL MANUAL DIFFERENTIAL (MANUAL DIFF)
--- NOTE | 2022-06-12 15:49 | PC.WOUNDNOTE ---
pt awake at this time, oriented sitting up in bed. Pt reports now on depakote for several months, reports has had break through seizures since being on depakote. Notified ER
[2022-06-12 16:06] LABS: Coronavirus 19, PCR Not Detected (NotDetected); Influenza A, PCR Not Detected (NotDetected); Influenza B, PCR Not Detected (NotDetected)
--- NOTE | 2022-06-12 16:10 | PC.NURSE ---
ANA HERNÁNDEZ at
--- NOTE | 2022-06-12 16:34 | HMH.EDGENADL ---
Discharge Plan Disposition Patient Disposition: Xfer Short-Term Hosp Chief Complaint: Seizure Prescriptions Prescriptions: No Action trazodone 50 MG tablet 50 mg PO HSP PRN (Reason: Sleep) buspirone 10 MG tablet 10 mg PO BID PRN (Reason: Anxiety) loratadine 10 MG tablet 10 mg PO DAILY omeprazole magnesium 20 MG tablet,delayed release (DR/EC) 20 mg PO DAILY topiramate 200 MG capsule,extended release 24hr 200 mg PO HS levetiracetam 500 MG tablet 500 mg PO BID lorazepam 0.5 MG tablet 0.5 mg PO BID Qty: 6 0RF Referrals Follow up/Referrals: Aspen Alcala [Primary Care Provider] - See instructions Clinical Impressions Clinical Impression: Breakthrough seizure Instructions Patient Instructions: DI for Seizure Disorder -- Adult, DI for Seizure (Not Epilepsy/Seizure Disorder), DI for Seizure Disorder -- Child Discharge ED Provider: Ken Dave General Adult HPI General Chief complaint: Seizure Stated complaint: seizures Time Seen by Provider: 06/12/22 15:30 Mode of Arrival: EMS Source of Information: EMS Limitations: pt snorous respirations upon arrival to ED Description of Symptoms (Recalled from ER Triage Doc. by RN): Pt arrivied via EMS, being brought in r/t seizures x3 in the past 2 days. Per EMS pt had a seizure as pulling into the hospital, pt was given Versed 2mg IV r/t seizure. Pt arrives with snorous respirations. Pt has hx of epilepsy, per EMS pt was alert and oriented prior to seizure that she has when pulling into the hospital. History of Present Illness HPI narrative: Patient is a 61-year-old female with past medical history of epilepsy on Depakote 200 mg twice daily who presents emergency department for evaluation of seizure. Patient was switched to Depakote in the spring and since then has had increasing seizure frequency. Patient presented to the emergency room after having 3 generalized tonic-clonic seizures all lasting less than 10-minute in duration throughout the day. Patient is status post 2 mg of Versed and is postictal upon arrival no further initial history is able to be obtained at this time. Interval update: After patient was no longer postictal she states that her known triggers are staying up late for which she has done for many days. Denies fevers, cough, other acute complaints. Patient has been compliant with medications. She states that she normally has a heart rate of approximately 110 on propranolol however has discontinued her propranolol due to it making her feel bad . Interval update: Daughter bedside states that seizure disorder has been primarily managed by primary care nurse practitioner. Patient was originally on Topamax and was switched to Depakote after insurance changes in the fall. Related Data Home Medications Medication Instructions Recorded Confirmed buspirone 10 mg tablet 10 mg PO BID PRN Anxiety 07/18/21 07/18/21 loratadine 10 mg tablet 10 mg PO DAILY Allergy symptoms 07/18/21 07/18/21 omeprazole magnesium 20 mg 20 mg PO DAILY acid reflux 07/18/21 07/18/21 tablet,delayed release trazodone 50 mg tablet 50 mg PO HSP PRN Sleep 07/18/21 07/19/21 topiramate 200 mg capsule,extended 200 mg PO HS seizures 07/19/21 07/19/21 release 24 hr levetiracetam 500 mg tablet 500 mg PO BID seizures 01/29/22 01/29/22 Previous Rx's Medication Instructions Recorded lorazepam 0.5 mg tablet 0.5 mg PO BID #6 tabs 01/29/22 Allergies Allergy/AdvReac Type Severity Reaction Status Date / Time amoxicillin Allergy Mild ANAPHYLACTIC Verified 07/18/21 19:46 SHOCK cephalexin [From Keflex] Allergy Mild S-ANAPHYLACTIC Verified 07/18/21 19:46 SHOCK ciprofloxacin [From Cipro] Allergy Mild ANAPHYLACTIC Verified 07/18/21 19:46 SHOCK erythromycin base Allergy Mild ANAPHYLACTIC Verified 07/18/21 19:46 SHOCK Sulfa (Sulfonamide Allergy Mild ANAPHYLACTIC Verified 07/18/21 19:46 Antibiotics) SHOCK Tetanus Vaccines and
[2022-06-12 16:46] LABS: Lymphocytes % 10 % (10-50); Monocytes % 3 % (2-9); Neutrophils % 87 % (42-76); Total Cells Counted 100
[2022-06-12 16:47] LABS: Macrocytosis 2+; Platelet Estimate Normal
--- NOTE | 2022-06-12 17:52 | PC.NURSE ---
pt ambulated to restroom with assist x 2, no complications. Pt given kim gorge and a warm blanket. Family at BS. no other needs at this time
[2022-06-12 18:32] LABS: Reflex Lactic Add Lactic Reflex
--- NOTE | 2022-06-12 18:34 | PC.NURSE ---
pt had another seizure; ER MD notified and at BS. ALISON Kelley and ALISON Rodriguez at BS
--- NOTE | 2022-06-12 18:41 | PC.NURSE ---
182- entered pt room was going to draw pt repeat lactic acid per ER MD request. Pt sitting up in bed staring off and then began having convulsions. Notified ER MD who arrived BS. Seizure pads are in place on bed rails, remain in place. Suction on an ready a BS during seizure. Seizure activity lasted until 1829. ER MD states to have ativan ready at BS but would wait until 3 minute phoebe of seizure activity. At of seizure activity pt was cyanotic in color, NRB placed on pt. approx 1840- pt has eye opening response, pt on telemetry monitor, SaO2 99% on RA. will continue to monitor
--- NOTE | 2022-06-12 19:04 | PC.NURSE ---
rad notified pt has IV for CTAs now
--- NOTE | 2022-06-12 19:19 | PC.NURSE ---
pt moved to room 6 to be in better view of the nurses station. pt up to bsc with staff assistance, pt refused to use bedpan. Pt was incontinent of stool apparently during seizure. Pt states she was unaware of incontinence
--- NOTE | 2022-06-12 19:28 | PC.NURSE ---
shift change report given to samantharn
--- NOTE | 2022-06-12 19:34 | PC.NURSE ---
Pt moved to ED room 6 to have a better visualization from ED staff
--- NOTE | 2022-06-12 20:08 | PC.NURSE ---
Dr. Dave speaking with Dr. Peraza at [facility]
--- NOTE | 2022-06-12 20:18 | PC.NURSE ---
advised no immediate beds available. Pt placed on wait list at per Dr. Peraza
--- NOTE | 2022-06-12 20:18 | PC.NURSE ---
Spoke with Denisa at [facility], she advised there would be no immediate beds available but Dr. Garcia would be calling us back to place her on a wait list. Pt updated with POC.
--- NOTE | 2022-06-12 20:54 | PC.NURSE ---
Dr. Dave advised that pt has been accepted to [facility] ER per Dr. Peraza
--- NOTE | 2022-06-12 20:55 | PC.NURSE ---
Pt sister updated that she would be going to via EMS
== END 2022-06-12 21:36 | disposition short-term general hospital (02) ==
PROVIDERS: Emergency Provider Emergency Medicine; PCP Nurse Practitioner Family
DX: G40.909 Epilepsy, unspecified, not intractable, without status epilepticus (principal); R00.0 Tachycardia, unspecified; Z20.822 Contact with and (suspected) exposure to COVID-19; K21.9 Gastro-esophageal reflux disease without esophagitis; F41.9 Anxiety disorder, unspecified; Z79.899 Other long term (current) drug therapy; Z88.0 Allergy status to penicillin; Z88.1 Allergy status to other antibiotic agents; Z88.2 Allergy status to sulfonamides; Z88.3 Allergy status to other anti-infective agents; Z88.8 Allergy status to other drugs, medicaments and biological substances; Z88.7 Allergy status to serum and vaccine
CPT/HCPCS: 70450; 72125; 80053; 83605; 84443; 85007; 85025; 93005; 96361; 96374; 99285; C9803; J1953; U0003; U0005

== ENCOUNTER 2022-07-16 20:18 | Observation (INO) | payer OTHER, SELFPAY ==
[2022-07-16 20:18] VITALS: BMI 25.8
[2022-07-16 20:27] VITALS: BP 154/95; PULSE 128; RESP 18; TEMP 36.8; O2SAT 98; BMI 27.1
--- NOTE | 2022-07-16 20:37 | XR_ITS ---
PROCEDURE INFORMATION: Exam: XR Chest Exam date and time: 07/16/2022 9:04 PM Age: 61 years old Clinical indication: Other: Tachycardia TECHNIQUE: Imaging protocol: Radiologic exam of the chest. Views: 1 view. COMPARISON: CR XR CHEST PORTABLE 01/29/2022 9:08 AM FINDINGS: Lungs: Clear, symmetrically inflated lungs. Pleural spaces: No pleural effusion. No pneumothorax. Heart/Mediastinum: Cardiac silhouette is normal in size for technique. Bones/joints: Age appropriate. IMPRESSION: No acute cardiopulmonary abnormality.
--- NOTE | 2022-07-16 20:37 | ECG_ITS ---
APPROVED REPORT Exam: Resting ECG HR:126 bpm ECG Measurements Heart Rate 126 AXES OH 163 P 63 QRSd 89 QRS 13 QT 312 T 47 QTc 386 Conclusion SINUS TACHYCARDIA LOW QRS VOLTAGE IN PRECORDIAL LEADS [QRS DEFLECTION < 1.0 mV IN CHEST LEADS] POSSIBLE RIGHT VENTRICULAR CONDUCTION DELAY [RSR (QR) IN V1/V2] ABNORMAL RHYTHM ECG UNCONFIRMED REPORT Electronically signed by : Rudolph Young MD 07/17/2022 19:45:22
[2022-07-16 20:40] LABS: Microscopic, Urine URINE MICROSCOPIC (MICROSCOPIC)
[2022-07-16 20:42] LABS: Basophils % 0.5 % (0.1-2.0); Eosinophils # 0.1 K/mm3 (0.0-0.4); Eosinophils % 1.2 % (0.1-12.0); Hematocrit 40.2 % (37.0-47.0); Hemoglobin 13.4 g/dL (12.2-16.2); Lymphocytes # 0.8 K/mm3 (0.7-4.5); Lymphocytes % 13.6 % (10-50); Mean Corpuscular HGB Conc 33.3 g/dL (31.8-35.4); Mean Corpuscular Volume 114.1 fl (81-99); Mean Platelet Volume 7.9 fl (7.4-10.4); Monocytes # 0.2 K/mm3 (0.1-1.0); Monocytes % 3.4 % (1.7-9.3); Neutrophils # 4.8 K/mm3 (1.8-7.8); Neutrophils % 81.2 % (37.0-80.0); Platelet Count 185 K/mm3 (142-424); Red Blood Count 3.52 M/mm3 (4.20-5.40); Red Cell Distribution Width 15.1 % (11.5-17.5); White Blood Count 5.9 K/mm3 (4.8-10.8)
[2022-07-16 20:44] LABS: Coronavirus 19, PCR Not Detected (NotDetected); Influenza A, PCR Not Detected (NotDetected); Influenza B, PCR Not Detected (NotDetected)
[2022-07-16 20:47] LABS: Appearance,Urine CLEAR (Clear); Blood, Urine TRACE-L (Negative); Color,Urine DK YELLOW (Yellow); Glucose,Urine (UA) Negative (Negative); Ketones,Urine 1+ (Negative); Leukocyte Esterase,Urine TRACE (Negative); Nitrate,Urine Negative (Negative); PH,Urine 6.5 (5.0-8.5); Protein,Urine 2+ (Negative)
[2022-07-16 20:47] LABS: Chloride 95 mmol/L (98-107)
[2022-07-16 20:48] LABS: Potassium 3.5 mmoL/L (3.5-5.1); Sodium 132 mmol/L (136-145)
[2022-07-16 20:49] LABS: Bilirubin,Urine Negative (Negative)
[2022-07-16 20:50] LABS: Alanine Aminotransferase 46 U/L (12-78); Albumin Level 4.4 g/dl (3.5-5.0); Albumin/Globulin Ratio 1.1 (1.1-1.8); Alkaline Phosphatase 173 U/L (38-126); Anion Gap 17.5 mEq/L (5-15); Aspartate Amino Transferase 144 U/L (14-36); Bilirubin,Total 2.6 mg/dl (0.2-1.3); Blood Urea Nitrogen 4 mg/dl (7-17); Carbon Dioxide 23 mmol/L (22.0-30.0); Creatinine Clearance Estimated 62 mL/min (50-200); Estimated Glomerular Filt Rate 125 ml/min (>60); GFR (African American) 151 ML/MIN (>60); Lactic Acid 2.2 mmol/L (0.7-2.1); Total Protein,Serum 8.4 g/dl (6.3-8.2)
[2022-07-16 20:51] LABS: Glucose 163 mg/dl (74-100); Magnesium 1.4 mg/dl (1.6-2.3)
[2022-07-16 21:03] LABS: Troponin I < 0.01 ng/ml (0.00-0.034)
[2022-07-16 21:04] LABS: Bacteria,Urine 1+ /lpf
--- NOTE | 2022-07-16 21:14 | HMH.EDSEIZ ---
Discharge Plan Disposition Patient Disposition: Home, Self-Care Prescriptions Prescriptions: New metronidazole 500 mg tablet 500 mg PO TID Qty: 30 0RF No Action venlafaxine 37.5 mg capsule,extended release 24hr 37.5 mg PO DAILY Label Comments: TAKE 1 CAPSULE 1 TIME EACH DAY levetiracetam 1,000 mg tablet 1,000 mg PO BID Referrals Follow up/Referrals: Aspen Alcala [Primary Care Provider] - See instructions Rudolph Young MD [Staff Physician] - See instructions Clinical Impressions Clinical Impression: Seizure disorder, Seizure, C. difficile enteritis Instructions Patient Instructions: DI for Seizure Disorder -- Adult, DI for Clostridioides difficile Infection Discharge ED Provider: Clem (ED)Juice Seizures HPI General Chief Complaint: Seizure Stated Complaint: seizure like acitivty, diarrhea Time Seen by Provider: 07/16/22 21:00 Mode of Arrival: EMS Source of Information: Patient and Medical Record Limitations: No Limitations Description of Symptoms (Recalled from ER Triage Doc. by RN): Pt arrives via ems c c/o seizures. States that rougly 45 minuts ago she had a seizure lasting a few minutes. Is unsure if she lost consciousness but did not lose control of her bladder. Does have a 30 yr+ history of seizures controlled by keppra by her pcp. States she was sitting on her couch when she seized. Did not hit head or sustain any injuries. States that she does see an auro prior to her seizures which she did experience tonight. Pt also reports having severe diarrhea with greater than 10 episodes. History of Present Illness HPI Narrative: pt with hx of sz and had one tonight with last prev 06/12/22 - has been compliant on meds - over the last 2 days has nonbldy diarrhea and no vomiting or abd pain and no known exposures complaint: seizure Onset (ago): hour(s) Description of Episode: bladder incontinence Witnessed: no Trauma: No Seizure History: known seizure disorder Place: home Possible Precipitating Event: none Treatments prior to arrival: none Related Data Home Medications Medication Instructions Recorded Confirmed levetiracetam 1,000 mg tablet 1,000 mg PO BID seizures 07/16/22 07/16/22 venlafaxine 37.5 mg 37.5 mg PO DAILY Depression 07/16/22 07/16/22 capsule,extended release 24 hr Previous Rx's Medication Instructions Recorded metronidazole 500 mg tablet 500 mg PO TID #30 tabs 07/17/22 Allergies Allergy/AdvReac Type Severity Reaction Status Date / Time amoxicillin Allergy Mild ANAPHYLACTIC Verified 07/18/21 19:46 SHOCK cephalexin [From Keflex] Allergy Mild S-ANAPHYLACTIC Verified 07/18/21 19:46 SHOCK ciprofloxacin [From Cipro] Allergy Mild ANAPHYLACTIC Verified 07/18/21 19:46 SHOCK erythromycin base Allergy Mild ANAPHYLACTIC Verified 07/18/21 19:46 SHOCK Sulfa (Sulfonamide Allergy Mild ANAPHYLACTIC Verified 07/18/21 19:46 Antibiotics) SHOCK Tetanus Vaccines and Toxoid Allergy Mild ANAPHYLACTIC Verified 07/18/21 19:46 SHOCK PFSH PFS Disclaimer: The information contained in this section may have been updated after the patient was seen, as this information can be updated by other users. Social History Smoking Status: Never smoker alcohol intake: current current occupational status: employed Travel in the last 8 weeks: None ROS Obtained: Yes All systems reviewed & no additional complaints except as documented Physical Exam General General appearance: alert Head Head exam: normocephalic Eye Eye exam: Present PERRL and EOMI; Absent scleral icterus ENT ENT exam: Present mucous membranes moist Neck Neck exam: Present trachea midline Respiratory Respiratory exam: Present normal lung sounds bilaterally; Absent respiratory distress Cardiovascular Cardiovascular exam: Present regular rate Abdominal Exam Abdominal exam: Present soft; Absent tenderness Extremities Exam Extremities exam: Present normal inspection
--- NOTE | 2022-07-16 22:05 | PC.NURSE ---
patient is currently resting comfortably in bed. Labs are still pending a stool sample. Patient ambulated independently to restroom and provided a sample.
[2022-07-16 22:13] LABS: Adenovirus F 40/41, stool Not Detected (NotDetected); Astrovirus Not Detected (NotDetected); Campylobacter Not Detected (NotDetected); Cryptosporidium Not Detected (NotDetected); Cyclospora Cayetanesis Not Detected (NotDetected); Entamoeba histolytica Not Detected (NotDetected); Enteroaggregative E coli Not Detected (NotDetected); Enteropathogenic E coli Not Detected (NotDetected); Enterotoxigenic E coli Not Detected (NotDetected); Giardia lamblia Not Detected (NotDetected); Norovirus Not Detected (NotDetected); Plesimonas Shigalloides, PCR Not Detected (NotDetected); Rotavirus A Not Detected (NotDetected); Salmonella, PCR Not Detected (NotDetected); Sapovirus Not Detected (NotDetected); Shiga-like toxin E coli Not Detected (NotDetected); Shigella Enterovasive E coli Not Detected (NotDetected); Vibrio Cholerae Not Detected (NotDetected); Vibrio, PCR Not Detected (NotDetected); Yersinia Entercolitica, PCR Not Detected (NotDetected)
--- NOTE | 2022-07-16 22:27 | PC.NURSE ---
Patient heart rate remains elevated, 138bpm. BP 197/110. MD notified. Pt states that she had been on metoprolol to control her heart rate until a couple of months ago. States that she believes that took her off of her metoprolol because her heart rate had become more controlled. notified. Orders given for 2.5mg metoprolol IV once.
--- NOTE | 2022-07-16 22:49 | PC.NURSE ---
2.5mg of metoprolol given IV. Pt tolerated the medication well.
[2022-07-16 23:54] LABS: Clostridium Difficile A/B, PCR Detected (NotDetected)
--- NOTE | 2022-07-16 23:57 | PC.NURSE ---
notified of c-diff result on diarrhea panel
[2022-07-17] VITALS (9 sets, daily range): BP systolic 121–154; BP diastolic 82–95; PULSE 80–110; RESP 16–18; TEMP 36.4–37.1; O2SAT 94–99; BMI 27.2
[2022-07-17 00:07] LABS: Troponin I 0.02 ng/ml (0.00-0.034)
--- NOTE | 2022-07-17 00:28 | PC.NURSE ---
Patient made a loud sudden noise, nursing staff went to evaluate and patient was noted to be seizing. Patient was grasping at her chest and her face was reddened. She was unresponsive and shaking violently. notified immediately. Patient was given 2mg of ativan IV. Patient was laid flat during episode and was free from any injury. Nursing staff stayed with patient through her seizure. MD has reached out to hospitalist regarding admitting patient. Patients family was immediately notified. Patient had just called her mother to ask for a ride home from the hospital as she has been expecting to be discharged home following her IV antibiotics. I called the patients mother Jolly to let her know that the patient would be staying in the hospital. Patients family is from out of town so the anticipation was to save them from driving here to pickler helper the patient and then not being discharged. Patient continues to rest in bed.
--- NOTE | 2022-07-17 00:31 | PC.NURSE ---
warehouse record clerk notified for bed assignment
[2022-07-17 00:41] LABS: Reflex Lactic Add Lactic Reflex
[2022-07-17 00:47] LABS: Ethyl Alcohol < 10 mg/dl (0-10)
--- NOTE | 2022-07-17 00:59 | EXP.HP ---
History of Present Illness *Admission Date: 07/17/22 *Reason for visit:: Seizure, Diarrhea *History of present illness: Ms. Krishnan is a 61-year-old female with seizure disorder. She presented to [facility] by EMS due to unwitnessed seizure and reports of diarrhea. In the ER, she underwent stool studies that was positive for C. Diff. She was getting ready to be discharged to home and had another seizure. She was given Ativan. She reports that the diarrhea has been intense for the last two days. She denies known similar contacts and denies any recent antibiotic use. She reports she has taken her medication as prescribed, but reports that as soon as she ingests anything that it goes right through her. In addition to having c. diff other remarkable testing showed a Na of 132, K of 3.5 and Magnesium of 1.4. The patient will be admitted with initial impression: Seizure, C. Diff, Hypomagnesium. She will be placed on iv keppra due to concern for poor solubility of medications, her electrolytes will be replaced and she will be treated for C. Diff. The plan of care was discussed with the patient on admission. She verbalized understanding and agreement with the plan of care. [facility] Disclaimer: The information contained in this section may have been updated after the patient was seen, as this information can be updated by other users. Medical History (Updated 07/17/22 @ 04:40 by Miriam Pappas RN) Appendicitis Gallbladder disease History of back pain Seizure disorder Surgical History (Updated 07/17/22 @ 03:42 by Miriam Pappas RN) History of hip replacement Family History (Updated 07/17/22 @ 03:38 by Miriam Pappas RN) No significant family history Social History (Updated 07/17/22 @ 03:43 by Miriam Pappas RN) Smoking Status: Never smoker alcohol intake: current current occupational status: employed and retired Travel in the last 8 weeks: None Review of Systems Review of Systems Review of systems:: pertinent systems reviewed and negative unless documented below Constitutional Constitutional: Reports system reviewed and no additional complaints, except as documented Eyes Eyes: Reports system reviewed and no additional complaints, except as documented ENT Ears, Nose, Mouth, and Throat: Reports system reviewed and no additional complaints, except as documented *Cardiovascular Cardiovascular: Reports system reviewed and no additional complaints, except as documented *Respiratory Respiratory: Reports system reviewed and no additional complaints, except as documented *Gastrointestinal Gastrointestinal: Reports loose stools and Reports nausea *Genitourinary Genitourinary: Reports system reviewed and no additional complaints, except as documented *Musculoskeletal Musculoskeletal: Reports system reviewed and no additional complaints, except as documented Integumentary/Breasts Skin/Breast: Reports system reviewed and no additional complaints, except as documented *Neurologic Neurologic: Reports seizure-like activity Psychiatric Psychiatric: Reports system reviewed and no additional complaints, except as documented Hematologic/Lymphatic Hematologic/Lymphatic: Reports system reviewed and no additional complaints, except as documented Allergic/Immunologic Allergic/Immunologic: Reports system reviewed and no additional complaints, except as documented Meds Home Medications and Allergies Home Medications Medication Instructions Recorded Confirmed Type levetiracetam 1,000 mg tablet 1,000 mg PO BID seizures 07/16/22 07/16/22 History venlafaxine 37.5 mg 37.5 mg PO DAILY Depression 07/16/22 07/16/22 History capsule,extended release 24 hr metronidazole 500 mg tablet 500 mg PO TID #30 tabs 07/17/22 Rx New Prescriptions to Start Prescriptions: joni Nj (ED)Juice Allergies Allergy/AdvReac Type Severity Reaction Status Date /
[2022-07-17 01:02] LABS: Barbiturates Screen,Urine Negative ng/ml (<200); Benzodiazepines Screen,Urine Negative ng/ml (<200)
[2022-07-17 01:03] LABS: Amphetamine/Metha Screen,Urine Negative ng/ml (<1000)
[2022-07-17 01:04] LABS: Cannabinoid Screen,Urine Negative ng/ml (<50); Methadone Screen,Urine Negative ng/ml (<300)
[2022-07-17 01:05] LABS: Cocaine Screen,Urine Negative ng/ml (<300)
[2022-07-17 01:06] LABS: Opiate Screen,Urine Negative ng/ml (<300); Phencyclidine Screen,Urine Negative ng/ml (<25)
[2022-07-17 01:23] LABS: Lactic Acid Follow Up (RFLX 1) 4.1 mmol/L (0.7-2.1)
--- NOTE | 2022-07-17 01:24 | PC.NURSE ---
Critical lactic of 4.4 reported to LENNY Batista at this time. No new orders received at this time.
--- NOTE | 2022-07-17 02:59 | PC.NURSE ---
pt will arouse to being shaken, lethargic d/t receiving ativan. patient is oriented x4. stable on RA. VSS. Lung sounds clear. Pt has no complaints at this time besides feeling sleepy. Will continue to monitor
[2022-07-17 03:05] LABS: Reflex Lactic (2 hrs) Add Lactic Reflex
[2022-07-17 04:22] LABS: Lactic Acid Follow up (RFLX 2) 0.7 mmol/L (0.7-2.1)
[2022-07-17 04:35] LABS: Troponin I 0.03 ng/ml (0.00-0.034)
--- NOTE | 2022-07-17 06:21 | PC.NURSE ---
pt has been sleeping through the night. no complaints of pain. no noted seizure activity since arriving to the floor. A&Ox4. Stable on room air. Lung sounds clear. NS@125. Will continue to monitor.
--- NOTE | 2022-07-17 06:38 | HMH.PHAINT1 ---
Pharmacy Intervention Comments: MEDICATION RECONCILIATION COMPLETED ON PATIENT USING EXTERNAL FILL HISTORY FROM PHARMACY. -ELIF DENNY, ADONISD
[2022-07-17 07:47] LABS: Chloride 105 mmol/L (98-107); Sodium 135 mmol/L (136-145)
[2022-07-17 07:50] LABS: Alanine Aminotransferase 39 U/L (12-78); Albumin Level 3.9 g/dl (3.5-5.0); Albumin/Globulin Ratio 1.1 (1.1-1.8); Alkaline Phosphatase 147 U/L (38-126); Aspartate Amino Transferase 124 U/L (14-36); Basophils % 0.5 % (0.1-2.0); Bilirubin,Total 1.5 mg/dl (0.2-1.3); Blood Urea Nitrogen 2 mg/dl (7-17); Carbon Dioxide 21 mmol/L (22.0-30.0); Creatinine Clearance Estimated 62 mL/min (50-200); Eosinophils # 0.1 K/mm3 (0.0-0.4); Eosinophils % 2.1 % (0.1-12.0); Estimated Glomerular Filt Rate 162 ml/min (>60); GFR (African American) 196 ML/MIN (>60); Globulin 3.5 g/dL (1.3-3.2); Glucose 108 mg/dl (74-100); Hematocrit 35.6 % (37.0-47.0); Hemoglobin 12.2 g/dL (12.2-16.2); Lymphocytes # 0.8 K/mm3 (0.7-4.5); Lymphocytes % 16.1 % (10-50); Mean Corpuscular HGB Conc 34.3 g/dL (31.8-35.4); Mean Corpuscular Hemoglobin 38.5 pg (27.0-31.2); Mean Corpuscular Volume 112.4 fl (81-99); Mean Platelet Volume 7.8 fl (7.4-10.4); Monocytes # 0.3 K/mm3 (0.1-1.0); Monocytes % 5.2 % (1.7-9.3); Neutrophils # 3.9 K/mm3 (1.8-7.8); Neutrophils % 76.1 % (37.0-80.0); Platelet Count 189 K/mm3 (142-424); Red Blood Count 3.17 M/mm3 (4.20-5.40); Red Cell Distribution Width 15.2 % (11.5-17.5); Total Protein,Serum 7.4 g/dl (6.3-8.2); White Blood Count 5.2 K/mm3 (4.8-10.8)
[2022-07-17 07:51] LABS: Magnesium 2.4 mg/dl (1.6-2.3)
--- NOTE | 2022-07-17 18:05 | PC.NURSE ---
pt has rested intermittently this shift, no seizure activity noted this shift, remains on room air, no complaints of pain or SOA, 3 bowel movements reported this shift
[2022-07-18] VITALS: BP 118/70; PULSE 80; PULSE 81; RESP 16; TEMP 36.6; O2SAT 98
[2022-07-18 04:00] VITALS: BP 129/74; PULSE 70; PULSE 80; RESP 16; TEMP 36.7; O2SAT 93; BMI 29.1
[2022-07-18 06:19] LABS: Basophils % 0.6 % (0.1-2.0); Eosinophils # 0.2 K/mm3 (0.0-0.4); Eosinophils % 2.4 % (0.1-12.0); Hematocrit 39.7 % (37.0-47.0); Hemoglobin 12.9 g/dL (12.2-16.2); Lymphocytes % 16.1 % (10-50); Mean Corpuscular HGB Conc 32.4 g/dL (31.8-35.4); Mean Corpuscular Hemoglobin 37.9 pg (27.0-31.2); Monocytes # 0.3 K/mm3 (0.1-1.0); Monocytes % 4.1 % (1.7-9.3); Neutrophils # 4.9 K/mm3 (1.8-7.8); Neutrophils % 76.7 % (37.0-80.0); Platelet Count 235 K/mm3 (142-424); Red Blood Count 3.39 M/mm3 (4.20-5.40); Red Cell Distribution Width 15.3 % (11.5-17.5); White Blood Count 6.3 K/mm3 (4.8-10.8)
[2022-07-18 06:28] LABS: Alanine Aminotransferase 38 U/L (12-78); Albumin/Globulin Ratio 1.1 (1.1-1.8); Alkaline Phosphatase 142 U/L (38-126); Anion Gap 10.9 mEq/L (5-15); Aspartate Amino Transferase 147 U/L (14-36); Bilirubin,Total 1.4 mg/dl (0.2-1.3); Blood Urea Nitrogen 4 mg/dl (7-17); Calcium 8.4 mg/dl (8.4-10.2); Carbon Dioxide 22 mmol/L (22.0-30.0); Chloride 103 mmol/L (98-107); Creatinine Clearance Estimated 66 mL/min (50-200); Estimated Glomerular Filt Rate 125 ml/min (>60); GFR (African American) 151 ML/MIN (>60); Globulin 3.7 g/dL (1.3-3.2); Glucose 94 mg/dl (74-100); Magnesium 2.2 mg/dl (1.6-2.3); Potassium 3.9 mmoL/L (3.5-5.1); Sodium 132 mmol/L (136-145); Total Protein,Serum 7.7 g/dl (6.3-8.2)
--- NOTE | 2022-07-18 06:37 | PC.NURSE ---
pt rested well through the night. no complaints of pain. a&ox4. stable on ra. patient received oral vanc and iv keppra.
[2022-07-18 07:21] VITALS: BP 143/87; PULSE 93; RESP 19; TEMP 36.6; O2SAT 99
--- NOTE | 2022-07-18 07:34 | EXP.DC.SUM ---
General Admission date:: 07/17/22 Discharge date: 07/18/22 HPI HPI HPI: Ms. Krishnan is a 61-year-old female with seizure disorder. She presented to [facility] by EMS due to unwitnessed seizure and reports of diarrhea. In the ER, she underwent stool studies that was positive for C. Diff. She was getting ready to be discharged to home and had another seizure. She was given Ativan. She reports that the diarrhea has been intense for the last two days. She denies known similar contacts and denies any recent antibiotic use. She reports she has taken her medication as prescribed, but reports that as soon as she ingests anything that it goes right through her. In addition to having c. diff other remarkable testing showed a Na of 132, K of 3.5 and Magnesium of 1.4. The patient will be admitted with initial impression: Seizure, C. Diff, Hypomagnesium. She will be placed on iv keppra due to concern for poor solubility of medications, her electrolytes will be replaced and she will be treated for C. Diff. The plan of care was discussed with the patient on admission. She verbalized understanding and agreement with the plan of care. Hospital Course Hospital Course Hospital Course: 61-year-old female with known seizure disorder presents after seizure and reports constant diarrhea and the inability to tolerate anything oral without constant diarrhea. Positive for C. difficile colitis. Started on oral antibiotics. No more seizures during hospitalization and diarrhea improving. Stable for discharge home. Problems addressed as follows: - Seizure Seizure witnessed in the ER. Reports that she is compliant with her medications since her last seizure in May. Has had increased gut mobility however and appears that her medications are not being digested/absorbed appropriately. Keppra level obtained, it is a send out and still not back at this time. Resumed on Keppra via IV. No further seizures during admission. Tolerating good p.o. intake by day of discharge, transitioned back to oral dosage. No change in her dosage. Keppra 1000 mg twice a day. No benzodiazepines needed during admission. Macrocytosis -Suspect secondary to patient's previous alcohol use.? We will start vitamin. Patient continues to drink however, drinking vodka daily, less than previous consumption. Does complicate her diagnosis above. Counseled on trying to cut back. Declined resources at this time. - C. Diff Stool positive on admission. Put under isolation precautions. Started on vancomycin orally 125 mg 4 times a day. Will need to complete 10 days total. This is her first episode. - Hypomagnesemia - Hypokalemia - Hyponatremia Replaced during admission. Remained stable following morning Exam Data for Last 24 hours Vital signs and Labs for Last 24 Hours: Temp Pulse Resp BP Pulse Ox 97.9 F 93 H 19 143/87 H 99 07/18/22 07:21 07/18/22 07:21 07/18/22 07:21 07/18/22 07:21 07/18/22 07:21 Laboratory Results - last 24 hr 07/17/22 07:26: WBC 5.2, RBC 3.17 L, Hgb 12.2, Hct 35.6 L, MCV 112.4 H, MCH 38.5 H, MCHC 34.3, RDW 15.2, Plt Count 189, MPV 7.8, Neut % (Auto) 76.1, Lymph % (Auto) 16.1, Keith % (Auto) 5.2, Eos % (Auto) 2.1, Baso % (Auto) 0.5, Neut # (Auto) 3.9, Lymph # (Auto) 0.8, Keith # (Auto) 0.3, Eos # (Auto) 0.1, Baso # (Auto) 0.0 07/17/22 07:26: Sodium 135 L, Potassium 4.0, Chloride 105, Carbon Dioxide 21 L, Anion Gap 13.0, BUN 2 L D, Creatinine 0.40 L, Estimated Creat Clear 62, Estimated GFR 162, Est GFR ( Amer) 196 D, Glucose 108 H D, Calcium 8.0 L, Total Bilirubin 1.5 H, AST 124 H, ALT 39, Alkaline Phosphatase 147 H, Total Protein 7.4, Albumin 3.9 D, Globulin 3.5 H, Albumin/Globulin Ratio 1.1 07/17/22 07:26: Magnesium 2.4 H D 07/18/22 05:52: WBC 6.3, RBC 3.39 L, Hgb 12.9, Hct 39.7, MCV 117.0 H, MCH 37.9 H, MCHC 32.4, RDW 15.3, Plt Count 235, MPV 8.0, Neut % (Auto) 76.7, Lymph % (Auto) 16.1, Keith % (Au
[2022-07-18 08:16] VITALS: PULSE 73
--- NOTE | 2022-07-18 09:44 | HMH.PHAINT1 ---
Pharmacy Intervention Comments: DISCHARGE MEDICATION COUNSELING PROVIDED. DISCUSSED THE FOLLOWING NEW MEDICATIONS: -METOPROLOL (FOR HEART RATE/BP, TWICE DAILY, DIZZINESS/LIGHTHEADEDNESS POSSIBLE) -VANCOMYCIN (ANTIBIOTIC, FOUR TIMES A DAY, FAIRLY WELL TOLERATED) -RISAQUAD (PROBIOTIC, DAILY, MAY CAUSE UPSET STOMACH, GAS, NAUSEA) PATIENT ASKED IF [facility] HAS THE VANCOMYCIN AND I TOLD HER I WOULD CALL TO VERIFY. THEY DID NOT HAVE IT AND SO I TRANSMITTED ALL OF THE PRESCRIPTIONS DOWNSTAIRS TO CLINIC PHARMACY. PATIENT ALSO ASKED ABOUT METOPROLOL AND I CALLED DR BRANTLEY WHO SENT IN A SCRIPT FOR THAT WELL. PATIENT VERBALIZED NO ADDITIONAL QUESTIONS.
--- NOTE | 2022-07-20 14:18 | CARE MANAGER ---
Spoke with patient for post-discharge phone interview, no issues.
== END 2022-07-18 14:50 | disposition home or self-care (01) ==
LOC: ER 07-17 00:06 → 2ND 07-17 02:21
PROVIDERS: Nurse Practitioner Family; Admitting Provider Internal Medicine Adolescent Medicine; Emergency Provider Emergency Medicine; PCP Nurse Practitioner Family; Visit Provider Internal Medicine Adolescent Medicine
DX: A04.72 Enterocolitis due to Clostridium difficile, not specified as recurrent (principal); E83.42 Hypomagnesemia; E87.6 Hypokalemia; E87.1 Hypo-osmolality and hyponatremia; Z79.899 Other long term (current) drug therapy; F10.90 Alcohol use, unspecified, uncomplicated; R56.9 Unspecified convulsions
CPT/HCPCS: 36415; 71045; 80053; 80177; 80305; 81001; 83605; 83735; 84484; 85025; 87507; 93005; 93225; 93226; 99285; C9803; G0378; J1953; J2405; J3370; J3475; U0003; U0005

== ENCOUNTER 2022-09-14 08:42 | Day surgery (SDC) | payer OTHER, SELFPAY ==
[2022-09-07 14:22] VITALS: BMI 27.4
[2022-09-14 08:53] VITALS: BP 151/90; PULSE 109; RESP 18; TEMP 36.6; O2SAT 96
--- NOTE | 2022-09-14 09:54 | EXP.ANES.CKL ---
[facility] Disclaimer: The information contained in this section may have been updated after the patient was seen, as this information can be updated by other users. Medical History Alcohol dependence Appendicitis Gallbladder disease History of back pain Hx of mitral valve prolapse Seizure disorder Surgical History History of appendectomy History of cholecystectomy History of hip replacement History of hysterectomy Family History Other Family history of Emi thyroiditis Family history of cancer Family history of congenital heart disease Social History Smoking Status: Never smoker alcohol intake: current substance use type: denies use current occupational status: retired Travel in the last 8 weeks: None household members: none housing: house lives independently: Yes marital status: single education level: college service: No caffeine: No do you feel safe at home: Yes victim of physical abuse: No victim of emotional abuse: No victim of sexual abuse: No would you like helpful sources: No [facility] Anesthesia Checklist Patient Identification Patient Identification: Arm Band Structural Data Admitted From: Home Planned Operative Procedure/s: Colonoscopy Consent for Planned Operative Procedure(s) Verified: Yes Verified Documents: Surgical Consent and History and Physical NPO Status Verified Time NPO: 00:00 Additional verifications Anesthesia Reactions: No Airway Assessment C-Spine Mobility Assessed: Yes TMJ Mobility Assessed: Yes Dentition: Good Dentition Neurological Assessment Level of Consciousness: Awake and Alert Anesthesia Plan Anesthesia Risk discussed: Yes Anesthesia Plan: Verified ASA Class: III Anesthesia Type: MAC
[2022-09-14 10:07] VITALS: O2SAT 96
--- NOTE | 2022-09-14 10:25 | HMH.SCOPE ---
Procedure: Date: 09/14/22 Patient Date of :: 1960 Procedure Performed:: Colonoscopy with biopsies and snare polypectomy Indications:: Bloody diarrhea Performing Provider:: Mc Vazquez MD Referring Provider:: Rudolph Young MD Sedation:: Propofol Procedure:: After placing the patient in the left lateral decubitus position, the colonoscopy was gently inserted into the rectum and under direct visualization advanced to the cecum which was identified by transillumination in the right lower quadrant, identification of the ileocecal valve, appendiceal orifice, and cecal strap. Color, texture, mucosa, and anatomy of the colon were carefully examined with the scope. Findings:: Anal canal: normal Rectum: normal Sigmoid colon: normal without polyps or inflammatory changes Descending colon: normal without polyps or inflammatory changes Splenic flexure: normal Transverse colon: normal without polyps or inflammatory changes Hepatic flexure: normal Ascending colon: 3/4 cm adenomatous polyp identified and removed with snare Cecum: normal Terminal ileum: not visualized Random biopsies obtained throughout the colon Impression: Polyp of ascending colon No evidence of colitis or c.diff Symptoms suggestive of post infectious IBS Specimens:: Random colon and ascending colon polyp Recommendations:: Follow up examination in about THREE years or so, sooner if clinically indicated. Complications:: None Estimated blood obtained (mL): 0
[2022-09-14 10:27] VITALS: BP 117/67; PULSE 89; RESP 18; TEMP 36.4; O2SAT 92
[2022-09-14 10:40] VITALS: BP 126/71; PULSE 89; RESP 18; O2SAT 99
[2022-09-14 11:20] VITALS: BP 137/75; PULSE 91; RESP 18; O2SAT 97
== END 2022-09-14 11:20 | disposition home or self-care (01) ==
PROVIDERS: PCP Internal Medicine Adolescent Medicine; Visit Provider Internal Medicine Gastroenterology
PROC: 0DJD8ZZ Inspection of Lower Intestinal Tract, Via Natural or Artificial Opening Endoscopic (ICD-10-PCS; CPT 45378; principal; 2022-09-14 10:00)
DX: K92.1 Melena (principal); R19.7 Diarrhea, unspecified; D12.2 Benign neoplasm of ascending colon; Z79.899 Other long term (current) drug therapy
CPT/HCPCS: 45380; 45385

== ENCOUNTER 2024-03-28 09:36 | Outpatient (CLI) | payer OTHER, SELFPAY ==
--- NOTE | 2024-03-28 09:40 | US_ITS ---
FINAL REPORT CLINICAL HISTORY: cirrhosis monitoring COMPARISON: None FINDINGS: Sonographic images of the right upper quadrant were obtained. The pancreas is partially obscured. The liver has a coarsened echotexture, consistent with the clinical diagnosis of cirrhosis. The gallbladder has been surgically resected. There is no evidence of biliary ductal dilatation.The common duct measures 6 mm, normal for age. Limited images of the right kidney are unremarkable. The portal vein is normal in size, measuring 10 mm in diameter, with normal directional flow. IMPRESSION: Coarsened echotexture of the liver consistent with a clinical diagnosis of cirrhosis. Prior cholecystectomy. Reviewed, Interpreted and Dictated by Jaylan Amezcua III, MD Transcribed by Margaret Arce Authenticated and [facility]
== END 2024-03-28 23:59 | disposition home or self-care (01) ==
LOC: RAD 09:37
PROVIDERS: PCP Internal Medicine Adolescent Medicine; Visit Provider Nurse Practitioner Family
DX: K74.60 Unspecified cirrhosis of liver (principal); R74.8 Abnormal levels of other serum enzymes; F10.11 Alcohol abuse, in remission
CPT/HCPCS: 76705

== ENCOUNTER 2024-08-29 09:39 | Outpatient (CLI) | payer MEDICARE, OTHER, SELFPAY ==
--- NOTE | 2024-08-29 09:40 | US_ITS ---
FINAL REPORT CLINICAL HISTORY: Repeat q6m Cirrhosis FINDINGS: RIGHT UPPER QUADRANT ULTRASOUND Technique: Ultrasound images of the right upper quadrant were obtained. Limited images of the liver parenchyma is normal in echogenicity. The gallbladder is well visualized and the wall appears normal. There are no gallstones. Common duct is normal. The right kidney is unremarkable. IMPRESSION: No acute process Reviewed, Interpreted and Dictated by Keyshawn Mccormack MD Transcribed by Vika Min Authenticated and [facility]
== END 2024-08-29 23:59 | disposition home or self-care (01) ==
LOC: RAD 09:40
PROVIDERS: PCP Internal Medicine Adolescent Medicine; Visit Provider Nurse Practitioner Family
DX: K76.82 Hepatic encephalopathy (principal); K74.60 Unspecified cirrhosis of liver; R74.8 Abnormal levels of other serum enzymes; F10.11 Alcohol abuse, in remission
CPT/HCPCS: 76705

== ENCOUNTER 2024-12-08 13:00 | Outpatient (RCR) | payer MEDICARE, SELFPAY | END 2024-12-08 23:59 | disposition home or self-care (01) | LOC: PT.CARL 13:00 | PROVIDERS: Visit Provider Orthopaedic Surgery | DX: Z47.1 Aftercare following joint replacement surgery (principal); R60.0 Localized edema; Z96.652 Presence of left artificial knee joint | CPT/HCPCS: 97110; 97112; 97163; 97530 ==

== ENCOUNTER 2024-12-17 12:55 | Outpatient (RCR) | payer MEDICARE, SELFPAY | END 2024-12-29 12:00 | disposition home or self-care (01) | LOC: PT.CARL 12:55 | PROVIDERS: Visit Provider Orthopaedic Surgery | DX: Z47.89 Encounter for other orthopedic aftercare (principal); Z96.642 Presence of left artificial hip joint | CPT/HCPCS: 97110 ==

== ENCOUNTER 2025-02-05 13:00 | Outpatient (RCR) | payer MEDICARE, SELFPAY | END 2025-02-05 23:59 | disposition home or self-care (01) | LOC: PT.CARL 13:00 | PROVIDERS: Visit Provider Orthopaedic Surgery | DX: M70.71 Other bursitis of hip, right hip (principal); Z96.641 Presence of right artificial hip joint | CPT/HCPCS: 97035; 97110; 97162 ==

== ENCOUNTER 2025-03-30 10:45 | Outpatient (CLI) | payer MEDICARE, SELFPAY ==
--- OUTSIDE RECORDS SUMMARY | 2025-03-30 10:52 | XMS_ITS | Clinical Summary ---
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 Unavailable [phone] Conditions or Problems Problem Name Problem Code Onset Date Status Entry Date Provider Comment Standard Description Annotate History of C. Diff colitis Z87.19 (ICD-10-CM) Active 01/03 Lynnette Lam Personal history of other diseases of the digestive system C. Difficile colitis, recurrent 34720170 (SNOMED CT) Active 01/03 Lynnette Lam Enterocolitis Alcoholic cirrhosis of liver without ascites 037028752 (SNOMED CT) Active 01/03 Lynnette Lam Alcoholic cirrhosis Bacteriuria 04948614 (SNOMED CT) Active 01/03 Lynnette Lam Bacteriuria Urinary tract infection (UTI) 87779969 (SNOMED CT) Active 01/03 Lynnette Lam Urinary tract infectious disease E. coli infection, non-shiga toxing-produci ng B96.29 (ICD-10-CM) Active 01/03 Lynnette Lam Other Escherichia coli [E. coli] as the cause of diseases classified elsewhere Benign Essential Hypertension 82051292 (SNOMED CT) Active 01/03 Lynnette Lam Benign hypertension Medications Medication Instructions Start Date Stop Date Generic Name ND Provider VANCOMYCIN HCL 250 MG CAPS Take 1 capsule by mouth 4 (Four) Times a Day for 21 doses. Continue oral vancomycin taper with higher dose oral vancomycin 250 mg p.o. 4 times daily x 2 weeks (through 01/03/24) then 3 times daily x 1 week, then 2 times daily x 1 week, then once daily x 1 week, then every other day x 1 week. Indications: Clostridium Difficile Infection vancomycin [id number] QIE qieuser THIAMINE HCL 100 MG TABS Take 1 tablet by mouth Daily. thiamine hcl (vitamin b1) 45103810890 QIE qieuser SACCHAROMYCES BOULARDII 250 MG CAPS Take 2 capsules by mouth 2 (Two) Times a Day. saccharomyces boulardii [id number] QIE qieuser riFAXIMin (XIFAXAN) 550 MG tablet Take 1 tablet by mouth Every 12 (Twelve) Hours for 700 doses. Indications: Impaired Brain Function due to Liver Disease XIFAXAN QIE qieuser PROPRANOLOL HCL 10 MG TABS Take 1 tablet by mouth 2 (Two) Times a Day. propranolol [id number] QIE qieuser ONDANSETRON HCL 4 MG TABS Take 1 tablet by mouth Every 8 (Eight) Hours As Needed for Nausea or Vomiting. ondansetron hcl 56003384515 QIE qieuser FISH OIL 1000 MG CAPS Take by mouth Daily With Breakfast. omega 6-xqd-eux-fish oil 68364154548 QIE qieuser multivitamin with minerals tablet tablet Take 1 tablet by mouth Daily. multivitamin with minerals tablet tablet QIE qieuser MIRTAZAPINE 15 MG TABS Take 1 tablet by mouth Every Night. mirtazapine 91178912704 QIE qieuser MIDODRINE HCL 5 MG TABS Take 1 tablet by mouth 3 (Three) Times a Day Before Meals. midodrine 12177532694 QIE qieuser LIDOCAINE PAIN RELIEF MAX ST 4 % [facility] Place 1 patch on the skin as directed by provider Daily. Remove & Discard patch within 12 hours or as directed by lidocaine 19042349238 QIE qieuser LEVETIRACETAM 1000 MG TABS Take 1 tablet by mouth Every 12 (Twelve) Hours. levetiracetam 52448209255 QIE qieuser FOLIC ACID 1 MG TABS Take 1 tablet by mouth Daily. folic acid 38209985008 QIE qieuser FAMOTIDINE 20 MG TABS Take 1 tablet by mouth 2 (Two) Times a Day Before Meals. famotidine 84089506514 QIE qieuser CALCIUM CARBONATE ANTACID 500 MG CHEW Chew 2 tablets 3 (Three) Times a Day As Needed for Indigestion or Heartburn. calcium carbonate [id number] QIE qieuser Artificial Tear Ointment (artificial tears) ophthalmic ointm Administer 1 Application to both eyes Every 1 (One) Hour As Needed (dry eyes). artificial tears QIE qieuser aluminum-magnesi um hydroxide-simeth icone (MAALOX MAX) 400-40 Take 15 mL by mouth Every 6 (Six) Hours As Needed for Indigestion or Heartburn. MAALOX MAX QIE qieuser ACETAMINOPHEN 325 MG TABS Take 2 tablets by mouth Every 6 (Six) Hours As Needed for Mild Pain. acetaminophen 28621332383 QIE qieuser Medications Administered No information available. Allergies, Adverse Reactions, Alerts Allergy Name Reaction Description Start Date Severity Statu s Provider TETANUS TOXOIDS Anaphylaxis Critical Active E rin Russel SULFA ANTIBIOTICS Anaphylaxis Critical Active Kathy Russel MEPERIDINE Anaphylaxis Critical Active Kathy G ambill ERYTHROMYCIN Anaphylaxis Critical Active Kathy Russel CEPHALEXIN Anaphylaxis Critical Active Kathy G ambill AMOXICILLIN Anaphylaxis Critical Active Kathy Russel Results Date Name Value Unit Range Flag Description Clinical Lists Update: Prelo ad VAPE_USE Never Tobacco smok ing status ORALTOBACUSE Never Tobacco smoking status SMOK STATUS 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 Procedures No information available. Vital Signs No information available. Immunizations No information available. Advance Directives No information available.
--- OUTSIDE RECORDS SUMMARY | 2025-03-30 10:55 | XMS_ITS | Clinical Summary ---
Author Organization [facility] Address [address] [place] [address] Phone Care Team Providers Care Emergency Planner Name Role Phone AKIL HERNÁNDEZ, QAMAR Primary Care Provider [phone] Delilah HERNÁNDEZ, Valerio Unavailable [phone] Reason for Visit and Chief Complaint [facility] Problems Includes: Problems addressed during this encounter and other active Problems All Visits Onset Date Resolved Date Provider Condition S tatus Joint Pain Hip Left 09/24/2024 Juice Ruiz Active Last Documented On 5 12:55PM ; [facility] Plan of Treatment Future Appointments Date Time Location Provi jean pierre Follow Up 10/22/2025 9:30AM [facility] Alison Walton PA-C Last Documented On 10:12AM ; [facility] Assessments Includes: Assessments from this encounter No Assessments Recorded Medical Equipment - Implanted Devices Includes: Current Devices No Medical Equipment Recorded Medications Includes: Medications discussed during this encounter and other current Medications Current Medications (continue as prescribed) Meloxicam 15 MG Oral Tablet 03/05/2025 - 04/04/2025 Pr ovider: Alison Walton PA-C Diagnosis: once a day Last Documented On 5 9:45AM By ANGELIA Phan ; [facility] Magnesium Gluconate 500 (27 Mg) MG Oral Tablet 025 Provider: Diagnosis: Last Documented On 5 3:24PM By Brook Robertson ; [facility] Benadryl Allergy 25 MG Oral Capsule 10/13/2024 Provi jean pierre: Diagnosis: Last Documented On 5 3:23PM By Brook Robertson ; [facility] Multivitamin Adults Oral Tablet 10/13/2024 Provider: Diagnosis: Last Documented On 5 3:23PM By Brook Finn [facility] Keppra 1000 MG Oral Tablet 09/24/2024 Provider: Diagnosis: Last Documented On 5 3:24PM By Calos Finn [facility] Propranolol HCl 10 MG Oral Tablet 09/01/2024 Provide r: Diagnosis: Last Documented On 3:24PM By Calos Finn [facility] Medications Administered Includes: Administered Medications from this encounter No Administered Medications Recorded Results Includes: Results discussed during this encounter No Results Recorded For Specified Dates History of Present Illness Includes: History of Present Illness from this encounter No History of Present Illness Recorded Social History No Social History Recorded - Smoking Status Unknown Procedures and Surgical History Includes: Procedures from this encounter Procedures Code Diagnosis Performing Provider Service Location Service Date TOTAL HIP ARTHROPLASTY (LEFT) 00950 Unilateral primary osteoarthritis, left hip Valerio Mazariegos MD [facility] Surgical Division 10/21/2024 Last Documented On 9:03AM ; [facility] Medical History Includes: Medical History addressed during this encounter No Medical History Recorded Family History Includes: Family History addressed during this encounter No Family History Recorded Review of Systems Includes: Review of Systems from this encounter No Review of Systems Recorded Mental Status Includes: Mental Status from this encounter No Mental Status Recorded Functional Status Includes: Functional Status from this encounter No Functional Status Recorded Physical Exam Includes: Physical Exam from this encounter No Physical Exam Recorded Allergies Includes: Active Allergies Substance Type Reaction Onset Date Resolved Date Statu s Tetanus Immune Globulin Allergy 10/13/2024 Active Last Documented On 03/05/2025 9:13AM ; [facility] Note: Lip Swelling-Major Sulfa Antibiotics Allergy 09/24/2024 A ctive Last Documented On 03/05/2025 9:13AM ; [facility] Note: Anaphylaxis-Major Keflex Allergy 09/24/2024 Active Last Documented On 03/05/2025 9:13AM ; [facility] Note: Anaphylaxis-Major Erythromycin Allergy 10/13/2024 Active Last Documented On 03/05/2025 9:13AM ; [facility] Note: Anaphylaxis-Major Demerol Allergy 01/22/2025 Active Last Documented On 5 9:13AM ; [facility] Ciprofloxacin Allergy Hives/Weal, Anaphylaxis 10/14/2024 Active Last Documented On 5 9:13AM ; [facility] Amoxicillin Allergy 09/24/2024 Active Last Documented On 5 9:13AM ; [facility] Note: Anaphylaxis-Major Encounters Encounter Provider Location Date Check-In Time Check-Out Time Diagnosis [facility] Valerio Mazariegos MD Surgery 5 10/22/2024 8:59AM 11:59PM Insurance Includes: Active Insurance Policies Plan Name Member ID Group # Subscriber Relationship Effect jens Dates - [employer] [id number] September Eulogio Mei Clinical Notes Includes: Clinical Notes from this encounter No Clinical Notes Recorded
--- OUTSIDE RECORDS SUMMARY | 2025-03-30 10:55 | XMS_ITS | Clinical Summary ---
Author Organization [facility] , [facility] Address [address] [place] [address] Phone Care Team Providers Care Chemical Inspector Name Role Phone AKIL HERNÁNDEZ, QAMAR Primary Care Provider [phone] Delilah HERNÁNDEZ, Valerio Unavailable [phone] Reason for Visit and Chief Complaint The Chief Complaint is: 8w fu S/P Left MARIMAR Problems Includes: Problems addressed during this encounter and other active Problems All Visits Onset Date Resolved Date Provider Condition S tatus Joint Pain Hip Left 09/24/2024 Juice Ruiz Active Last Documented On 12:55PM ; [facility], [facility] Plan of Treatment - Patient screened for future fall risk: documentation of any fall with injury in past year - Last Documented On 03/05/2025 9:37AM ; [facility] Fall Risk Assessment: This patient has been identified as a fall risk. Balance/gait along with postural blood pressure, vision and home fall hazards have been assessed. Medications have been reviewed, and recommendations made with regard to contributing factors for future falls. Plan of care: Consideration of vitamin D supplementation along with balance and strength training with consideration for formal physical therapy has been discussed with the patient. - Last Documented On 03/05/2025 9:37AM ; [facility], [facility] Future Appointments Date Time Location Provi jean pierre Follow Up 10/22/2025 9:30AM [facility] CHASE Walton PA-C Last Documented On 10:12AM ; [facility], [facility] Instructions to patient Lose weight Last Documented On 9:14AM ; [facility] Assessments Includes: Assessments from this encounter Findings - Overweight - Last Documented On 03/05/2025 9:37AM ; [facility], [facility] Instructions Includes: Instructions from this encounter Instructions to patient Lose weight Last Documented On 5 9:14AM ; [facility], [facility] Medical Equipment - Implanted Devices Includes: Current Devices No Medical Equipment Recorded Medications Includes: Medications discussed during this encounter and other current Medications New / Renewed during this visit Alison Walton PA-C on 03/05/2025 Meloxicam 15 MG Oral Tablet Provider: Alison De Dios 30 day supply: 30 tablet, 0 refills Diagnosis: once a day Pharmacy: [address], [address] - Last Documented On 9:45AM By ANGELIA Phan ; [facility], [facility] Current Medications (continue as prescribed) Magnesium Gluconate 500 (27 Mg) MG Oral Tablet 025 Provider: Diagnosis: Last Documented On 3:24PM By Brook Robertson ; [facility], [facility] Benadryl Allergy 25 MG Oral Capsule 10/13/2024 Provi jean pierre: Diagnosis: Last Documented On 3:23PM By Brook Robertson ; [facility], [facility] Multivitamin Adults Oral Tablet 10/13/2024 Provider: Diagnosis: Last Documented On 3:23PM By Brook Robertson ; [facility], [facility] Keppra 1000 MG Oral Tablet 09/24/2024 Provider: Diagnosis: Last Documented On 3:24PM By Calos Santos ; [facility], [facility] Propranolol HCl 10 MG Oral Tablet 09/01/2024 Provide r: Diagnosis: Last Documented On 5 3:24PM By Calos Santos ; [facility], [facility] Past Medications on file dexAMETHasone Sodium Phosphate 4 MG/ML Injection Solution Prefilled Syringe 01/23/2025 - 02/22/2025 Provider: Alison Walton PA-C Diagnosis: apply as directed USE WITH IONTOPHORESIS FOR PT Last Documented On 5 12:47PM By Sheron Fontaine ; [facility], [facility] Meloxicam 15 MG Oral Tablet 01/23/2025 - 02/22/2025 Pr ovider: Alison Walton PA-C Diagnosis: once a day Last Documented On 5 12:47PM By Sheron Fontaine ; [facility], [facility] oxyCODONE HCl 5 MG Oral Tablet 10/29/2024 - 11/04/2024 Provider: Valerio Mazariegos MD Diagnosis: 1 po q 6 to 8 hrs prn pain Last Documented On 5 2:16PM By Valerio Mazariegos ; [facility], [facility] Doxycycline Hyclate 100 MG O ral Tablet 10/20/2024 - 10/23/2024 Provider: Valerio Mazariegos MD Diagnosis: twice a day Last Documented On 5 4:13PM By Valerio Mazariegos ; [facility], [facility] oxyCODONE HCl 5 MG Oral Tablet 10/19/2024 - 10/23/2024 Provider: Valerio Mazariegos MD Diagnosis: [id number] ONE TABLET PO Q 4-6H FOR POST OP PAIN Last Documented On 5 9:49PM By Valerio Mazariegos ; [facility], [facility] Cefadroxil 500 MG Oral Capsule 10/19/2024 - 10/22/2024 Provider: Valerio Mazariegos MD Diagnosis: 1 tablet twice a day for 3 days Last Documented On 5 9:49PM By Valerio Mazariegos ; [facility], [facility] Meloxicam 15 MG Oral Tablet 10/19/2024 - 11/02/2024 Pr ovider: Valerio Mazariegos MD Diagnosis: once a day TAKE ONE P/O ONE TIME A DAY UNTIL FIN ISHED Last Documented On 5 9:49PM By Valerio Mazariegos ; [facility], [facility] Ondansetron HCl 4 MG Oral Tablet 10/19/2024 - 10/27/19 Provider: Valerio Mazariegos MD Diagnosis: 1-2 po q 4-6h PRN Nausea Last Documented On 5 9:49PM By Valerio Mazariegos ; [facility], [facility] Colace 100 MG Oral Capsule 10/19/2024 - 11/18/2024 Pro vider: Valerio Mazariegos MD Diagnosis: 1-2 tabs daily Last Documented On 5 9:49PM By Valerio Mazariegos ; [facility], [facility] Aspirin Adult Low Strength 8 1 MG Oral Tablet Delayed Release 10/19/2024 - 11/30/2024 Provider: Valerio belcher MD Diagnosis: twice a day Last Documented On 9:49PM By Valerio Mazariegos ; [facility] Acetaminophen 500 MG Oral Tablet 10/19/2024 - 11/19/19 Provider: Valerio Mazariegos MD Diagnosis: Take 2 tablets by mouth every 8 hours Last Documented On 9:49PM By Valerio Mazariegos ; [facility], [facility] Medications Administered Includes: Administered Medications from this encounter No Administered Medications Recorded Vital Signs Includes: Vital Signs from this encounter Vital Name 03/05/2025 09:14A Height (in) 62 Weight (lb) 170 Body Mass Index 31.1 Body Surface Area 1.8 Note: [facility] Last Documented: On 03/05/2025 9:14AM ; [facility], [facility] Results Includes: Results discussed during this encounter No Results Recorded For Specified Dates History of Present Illness Includes: History of Present Illness from this encounter HPI September Eulogio is a 64 year old female. - Symptoms giving away pain better: rest, heat pain worse: ult. bearing. - Allergy list reviewed - Problem list reviewed - Medication list reviewed - Previous history of new onset pain 1.5-2 years of pain - Pain is constant (100% of the time) - Patient pain level from 1-10: 8 - No previous treatment. - - Review of medications documented Patient is here today for re-evaluation of right hip bursitis. She is currently about 3-4 years postop from a hip replacement surgery that took place in 2021 where she had complications with a seroma of the needed further debridement. Last appointment she had tenderness on palpation of the right greater trochanter and we prescribed her formal physical therapy as well as an oral anti-inflammatories. Patient states she is doing very well until the last couple of weeks where she had an acute exacerbation of her right hip bursitis symptoms. She notices significant increase of her pain when she discontinue the oral anti-inflammatories. She denies any new injury, trauma, fall. She denies any groin pain symptoms. Her symptoms are most symptomatic going from a sitting to standing position. Denies any pain radiation. Denies any locking and catching of the hip. Social History Description Last Updated Alcohol use 09/24/2024 Last Documented On 5 9:13AM ; [facility] Caffeine use 09/24/2024 Last Documented On 5 9:13AM ; [facility] No recent change in diet 09/24/2024 Last Documented On 5 9:13AM ; [facility], [facility] Not a current smoker. 09/24/2024 Last Documented On 5 9:13AM ; [facility], [facility] Not exercising regularly 09/24/2024 Last Documented On 5 9:13AM ; [facility] Not using drugs 09/24/2024 Last Documented On 5 9:13AM ; [facility] Smoking Status Unknown Procedures and Surgical History Includes: Procedures from this encounter Procedures Code Diagnosis Performing Provider Service Location Service Date DRAIN/INJECT, JOINT/BURSA (RIGHT) Trochanteric bursitis, right hip Alison Walton PA-C [facility] 03/05/2025 Last Documented On 5 3:21PM ; [facility] Triamcinolone/Kenalog, 10mg per cc [id number] Trochanteric bursitis, right hip Alison Walton PA-C [facility] 03/05/2025 Last Documented On 5 3:21PM ; [facility] Surgical History Last Updated History of appendectomy 09/24/2024 Last Documented On 5 9:13AM ; [facility] History of History of Gallbladder 2024 Last Documented On 5 9:13AM ; [facility] History of hysterectomy 09/24/2024 Last Documented On 5 9:13AM ; [facility] History of total hip replacement 025 Last Documented On 5 9:13AM ; [facility] Medical History Includes: Medical History addressed during this encounter Description Last Updated seizures 09/24/2024 Last Documented On 5 9:13AM ; [facility], [facility] History of Anemia 09/24/2024 Last Documented On 5 9:13AM ; [facility] History of arthritis 09/24/2024 Last Documented On 5 9:13AM ; [facility] History of Irregular Heartbeat 5 Last Documented On 5 9:13AM ; [facility] History of Liver Disease 09/24/2024 Last Documented On 5 9:13AM ; [facility] Family History Includes: Family History addressed during this encounter Description Last Updated Family history of heart disease 09/25/19 Last Documented On 5 9:13AM ; [facility] Stroke / Seizures 09/24/2024 Last Documented On 5 9:13AM ; [facility] Review of Systems Includes: Review of Systems from this encounter No Review of Systems Recorded Mental Status Includes: Mental Status from this encounter No Mental Status Recorded Functional Status Includes: Functional Status from this encounter No Functional Status Recorded Physical Exam Includes: Physical Exam from this encounter Allergies Includes: Active Allergies Substance Type Reaction Onset Date Resolved Date Statu s Tetanus Immune Globulin Allergy 10/13/2024 Active Last Documented On 03/05/2025 9:13AM ; [facility] Note: Lip Swelling-Major Sulfa Antibiotics Allergy 09/24/2024 A ctive Last Documented On 03/05/2025 9:13AM ; [facility] Note: Anaphylaxis-Major Keflex Allergy 09/24/2024 Active Last Documented On 03/05/2025 9:13AM ; [facility] Note: Anaphylaxis-Major Erythromycin Allergy 10/13/2024 Active Last Documented On 03/05/2025 9:13AM ; [facility] Note: Anaphylaxis-Major Demerol Allergy 01/22/2025 Active Last Documented On 5 9:13AM ; [facility] Ciprofloxacin Allergy Hives/Weal, Anaphylaxis 10/14/2024 Active Last Documented On 5 9:13AM ; [facility] Amoxicillin Allergy 09/24/2024 Active Last Documented On 5 9:13AM ; [facility] Note: Anaphylaxis-Major Encounters Encounter Provider Location Date Check-In Time Check-Out Time Diagnosis Follow Up Alison Walton PA-C [facility] 5 9:10AM 9:33AM Overweight Insurance Includes: Active Insurance Policies Plan Name Member ID Group # Subscriber Relationship Effect jens Dates 1 - [employer] [id number] September Eulogio Self Clinical Notes Includes: Clinical Notes from this encounter * Progress note Date Encounter Last Documented by 03/05/2025 Follow Up Last documented on 03/05/2025; 9:37 AM, Alison Walton PA-C; [facility], [facility] Active Problems & Conditions - Joint Pain Hip Left Chief Complaint - 8w fu S/P Left MARIMAR Referred Here Referred by self. History of Present Illness Andreia Krishnan is a 64 year old female. - Symptoms giving away pain better: rest, heat pain worse: ult. bearing. - Allergy list reviewed - Problem list reviewed - Medication list reviewed - Previous history of new onset pain 1.5-2 years of pain - Pain is constant (100% of the time) - Patient pain level from 1-10: 8 - No previous treatment. - - Review of medications documented Patient is here today for re-evaluation of right hip bursitis. She is currently about 3-4 years postop from a hip replacement surgery that took place in 2021 where she had complications with a seroma of the needed further debridement. Last appointment she had tenderness on palpation of the right greater trochanter and we prescribed her formal physical therapy as well as an oral anti-inflammatories. Patient states she is doing very well until the last couple of weeks where she had an acute exacerbation of her right hip bursitis symptoms. She notices significant increase of her pain when she discontinue the oral anti-inflammatories. She denies any new injury, trauma, fall. She denies any groin pain symptoms. Her symptoms are most symptomatic going from a sitting to standing position. Denies any pain radiation. Denies any locking and catching of the hip. Current Medication - Benadryl Allergy 25 MG Oral Capsule take as directed 0 days, 0 refills - Keppra 1000 MG Oral Tablet take as directed 0 days, 0 refills - Magnesium Gluconate 500 (27 Mg) MG Oral Tablet take as directed 0 days, 0 refills - Multivitamin Adults Oral Tablet take as directed 0 days, 0 refills - Propranolol HCl 10 MG Oral Tablet 90 days, 0 refills Past Medical/Surgical History Diagnoses: Anemia Irregular Heartbeat Liver Disease. Arthritis Seizures. Surgical: - Appendectomy - Hysterectomy - History of Gallbladder - Total hip replacement Social History Not a current smoker. Current diet: No recent change in diet. Caffeine: Caffeine use. Alcohol: Alcohol use. Drug Use: Not using drugs. Habits: Not exercising regularly. Allergies - Amoxicillin - Ciprofloxacin Reaction: Hives/Weal (Severe), Anaphylaxis (Moderate) - Demerol - Erythromycin - Keflex - Sulfa Antibiotics - Tetanus Immune Globulin Family History Heart disease Stroke / Seizures Physical Findings - Vitals taken 03/05/2025 09:14 am [facility] Height 62 in Weight 170 lbs Body Mass Index 31.1 kg/m2 Body Surface Area 1.8 m2 The patient is well-dressed well-groomed. They have normal mood and affect. They are ambulating without any assistive device at today's follow-up appointment. Right hip exam: The hip has normal alignment. The incision is intact and well healed with some muscle deficiency from previous seroma. There is no induration, fluctuance, or drainage. There is no increased redness or heat. There is no effusion. Patient has pain- free motion with gentle internal external rotation of the right hip. She has tenderness on palpation of the right greater trochanter. Normal sensation. Normal neurovascular status. No calf tenderness. Negative Homans sign. Tests Two-view x-rays of the right hip were obtained and personally reviewed 01/22/25 which show right total hip arthroplasty overall in good position. No acute gross abnormalities noted at this time. No signs of loosening or subsidence. Assessment - Overweight Counseling/Education - Tobacco non-user - Use of tobacco assessment performed - Lose weight Plan StartCited - Other Meloxicam 15 MG tablet once a day, 30 days, 0 refills EndCited - Patient screened for future fall risk: documentation of any fall with injury in past year Fall Risk Assessment: This patient has been identified as a fall risk. Balance/gait along with postural blood pressure, vision and home fall hazards have been assessed. Medications have been reviewed, and recommendations made with regard to contributing factors for future falls. Plan of care: Consideration of vitamin D supplementation along with balance and strength training with consideration for formal physical therapy has been discussed with the patient. Notes This dictation was done with voice recognition software and may contain errors and omissions. Care Team - QAMAR BARNARD MD - TILE POWER SHEAR OPERATOR User Defined 5 Four month postop s/p left MARIMAR that took place on 10/21/24 Right hip bursitis I discussed the physical exam and previous x-ray findings with the patient office today. Patient continues to have tenderness on palpation of the right greater trochanter. We discussed continuing physical therapy as well as an oral anti-inflammatories we also discussed proceeding with a steroid injection. I did mentioned to the patient she is a slight increased risk of hip infection with this injection. After going over these options with the patient she would like to proceed with a right hip bursa injection. She denies any absolute contraindications to receiving this injection in office today. Right hip bursa injection: The risks of the procedure was explained to the patient and verbal consent was obtained. The patient was allowed to stand holding onto the exam table. The skin over the hip bursa region was prepped with Betadine solution. Using a 22-gauge spinal needle directing it at 90- toward the hip bursa, the hip bursa was injected with 40 mg triamcinolone and 4 cc's of 0.25% bupivacaine. Needle was withdrawn and Band- Aid was applied. The patient tolerated the procedure well Patient tolerated procedure well. We will plan to send her a refill of oral anti-inflammatories very we will plan to follow up as needed regarding her right hip bursitis. Patient feels comfortable with the plan moving forward and will call sooner with any questions or concerns.
--- OUTSIDE RECORDS SUMMARY | 2025-03-30 10:55 | XMS_ITS | Referral Summary ---
Author Organization [employer] ([place], [place], [place], [place]) Address [address] [place] [address] Care Team Providers Care Vegetable Ii Farmworker Name Role Phone Rudolph Young MD Primary Care Provider [phone] Allergies Active Allergy Reactions Criticality Noted Date Comments Cephalexin 03/19/2024 Sulfa (Sulfonamide Antibiotics) 07/2023 Medications folic acid (FOLVITE) 1 MG tablet Take 1 tablet (1,000 mcg total) by mouth daily. Active famotidine (PEPCID) 20 MG tablet Take 1 tablet (20 mg total) by mouth 2 (two) times daily. Active lactulose (CHRONULAC) 10 gram/15 mL solution Take by mouth. 03/10/2024 Active levETIRAcetam (KEPPRA) 1000 MG tablet Take 1 tablet (1,000 mg total) by mouth 2 (two) times daily. Active magnesium gluconate 27 mg magnesium (500 mg) tablet Take by mouth. 03/10/2024 Active midodrine (PROAMATINE) 5 MG tablet Take 2 tablets (10 mg total) by mouth 3 (three) times daily. Active propranoloL (INDERAL) 10 MG tablet Take 1 tablet (10 mg total) by mouth 2 (two) times daily. Active thiamine 100 MG tablet Take 1 tablet (100 mg total) by mouth daily. Active fluticasone propionate (FLONASE) 50 mcg/actuation nasal spray 1 spray by each nostril route daily. Active Social History Tobacco Use Types Packs/Day Years Used Date Smoking Tobacco: Unknown Tobacco Cessation:Counseling Given: Not Answered Alcohol Use Standard Drinks/Week Comments Not Currently 0 (1 standard drink = 0.6 oz pur e alcohol) Employment Answer Date Recorded Help finding and keeping a job Not on file 1 Family and Community Support Answer Mazin e Recorded Help with Day to Day Activities Not on file 03/19/2024 Feeling Lonely or Isolated Not on file 03/19 Educational Attainment Answer Date Wale rded Speak language other than [place] Islander at home Not on file 03/19/2024 Want help with school or training Not on file 03/19/2024 Substance Use Answer Date Recorded Used prescription meds for non-medical reasons N ot on file 03/19/2024 Used illegal drugs past 12 months Not on file 03/19/2024 Comments Unknown Sex and Gender Information Value Date Recorded Sex Assigned at Not on file Legal Sex Female 6:45 PM CDT Gender Identity Not on file Sexual Orientation Not on file Last Filed Vital Signs Vital Sign Reading Time Taken Comments Blood Pressure 141/78 03/19/2024 3:30 PM EDT Pulse 85 03/19/2024 3:30 PM EDT Temperature 36.6 C (97.9 F) 03/19/2024 1:00 PM EDT Respiratory Rate 22 03/19/2024 3:30 PM EDT Oxygen Saturation 99% 03/19/2024 3:30 PM EDT Inhaled Oxygen Concentration - - Weight - - Height 157.5 cm (5' 2 ) 03/19/2024 12:27 PM EDT Body Mass Index - - Plan of Treatment Not on file Insurance [facility] [employer] MEDICARE HMO Care Teams Vegetable Ii Farmworker Relationship Specialty Start Date End Date Rudolph Young MD [address] [place] [id number] PCP - General Adolescent Medicine 03/19/24
--- OUTSIDE RECORDS SUMMARY | 2025-03-30 10:55 | XMS_ITS | Encounter Summary ---
Author Organization [employer] ([place], [place], [place], [place]) Address [address] [place] [address] Care Team Providers Care Retail Performance Specialist Name Role Phone Rudolph Young MD Primary Care Provider [phone] Encounter Details Date Type Department Care Team (Late st Contact Info) Description 10/20/2024 Outside [facility] [address] [place] [address] Provider, Not In System [place] Social History Tobacco Use Types Packs/Day Years Used Date Smoking Tobacco: Unknown Alcohol Use Standard Drinks/Week Comments Not Currently [...] Date Wale rded Speak language other than Ivorian at home Not on file 03/19/2024 Want [...] on file Sexual Orientation Not on file documented as of this encounter Plan of Treatment Not on file documented as of this encounter Visit Diagnoses Not on filedocumented in this encounter Care Teams Retail Performance Specialist Relationship Specialty Start Date End Date Rudolph Young MD [address] [place] [address] PCP - General Adolescent Medicine 03/19/24 documented as of this encounter
--- OUTSIDE RECORDS SUMMARY | 2025-03-30 10:55 | XMS_ITS ---
Author Organization [facility] Address [address] [place] [address] Phone Care Team Providers Care Laser Specialist Name Role Phone AKIL HERNÁNDEZ, QAMAR Primary Care Provider [phone] Delilah HERNÁNDEZ, Valerio Unavailable [phone] Problems Includes: Active, inactive, and resolved Problems All Visits Onset Date Resolved Date Provider Condition S tatus Joint Pain Hip Left 09/24/2024 Juice Ruiz Active Last Documented On 5 12:55PM ; [facility] Plan of Treatment Findings Encounter Date Patient screened for future fall risk: documentation of any fall with injury in past year Follow Up with Alison Walton PA-C 03/05/2025 Last Documented On 5 9:37AM ; [facility] Patient screened for future fall risk: documentation of any fall with injury in past year Follow Up with Alison Walton PA-C 01/22/2025 Last Documented On 5 11:56AM ; [facility] Patient screened for future fall risk: documentation of any fall with injury in past year Post Op with Alison Walton PA-C 11/27/2024 Last Documented On 5 11:18AM ; [facility] Patient screened for future fall risk: documentation of any fall with injury in past year IN HOUSE REFERRAL with Alison Walton PA-C 09/25/2024 Last Documented On 5 10:34AM ; [facility] Patient screened for future fall risk: documentation of any fall with injury in past year Physician Specified with Juice Obregon PA-C 09/24/2024 Last Documented On 5 1:10PM ; [facility] Future Appointments Date Time Location Provi jean pierre Follow Up 10/22/2025 9:30AM [facility] Alison Walton PA-C Last Documented On 5 10:12AM ; [facility] Instructions to patient Lose weight Last Documented On 5 9:14AM ; [facility] Lose weight Last Documented On 5 9:27AM ; [facility] Lose weight Last Documented On 5 8:39AM ; [facility] Lose weight Last Documented On 5 8:55AM ; [facility] Lose weight Last Documented On 5 3:45PM ; [facility] Assessments Includes: Assessments for all patient encounters Findings Encounter Date Overweight Follow Up with Alison Walton PA-C 03/05/2025 Last Documented On 5 9:37AM ; [facility] Overweight IN HOUSE REFERRAL with Alison Walton PA-C 09/25/2024 Last Documented On 5 10:34AM ; [facility] Overweight Physician Specified with Juice Obregon PA-C 09/24/2024 Last Documented On 5 1:10PM ; [facility] Instructions Includes: Instructions for all patient encounters Instructions to patient Lose weight Last Documented On 5 9:14AM ; [facility] Lose weight Last Documented On 5 9:27AM ; [facility] Lose weight Last Documented On 5 8:39AM ; [facility] Lose weight Last Documented On 5 8:55AM ; [facility] Lose weight Last Documented On 5 3:45PM ; [facility] Medical Equipment - Implanted Devices Includes: Current and historical Devices No Medical Equipment Recorded Medications Includes: Current and historical Medications Current Medications (continue as prescribed) Meloxicam 15 MG Oral Tablet 03/05/2025 - 04/04/2025 Pr ovider: Alison Walton PA-C Diagnosis: once a day Last Documented On 5 9:45AM By ANGELIA Phan ; [facility] Magnesium Gluconate 500 (27 Mg) MG Oral Tablet 025 Provider: Diagnosis: Last Documented On 3:24PM By Brook Robertson ; [facility] Benadryl Allergy 25 MG Oral Capsule 10/13/2024 Provi jean pierre: Diagnosis: Last Documented On 3:23PM By Brook Robertson ; [facility] Multivitamin Adults Oral Tablet 10/13/2024 Provider: Diagnosis: Last Documented On 5 3:23PM By Brook Robertson ; [facility] Keppra 1000 MG Oral Tablet 09/24/2024 Provider: Diagnosis: Last Documented On 3:24PM By Calos Santos ; [facility] Propranolol HCl 10 MG Oral Tablet 09/01/2024 Provide r: Diagnosis: Last Documented On 3:24PM By Calos Santos ; [facility] Past Medications on file dexAMETHasone Sodium Phosphate 4 MG/ML Injection Solution Prefilled Syringe 01/23/2025 - 02/22/2025 Provider: Alison Walton PA-C Diagnosis: apply as directed USE WITH IONTOPHORESIS FOR PT Last Documented On 12:47PM By Sheron Fontaine ; [facility] Meloxicam 15 MG Oral Tablet 01/23/2025 - 02/22/2025 Pr ovider: Alison Walton PA-C Diagnosis: once a day Last Documented On 12:47PM By Sheron Fontaine ; [facility] Meloxicam 15 MG Oral Tablet 01/22/2025 - 01/23/2025 Pr ovider: Alison Walton PA-C Diagnosis: once a day Last Documented On 12:41PM By Sheron Fontaine ; [facility] oxyCODONE HCl 5 MG Oral Tablet 10/29/2024 - 11/04/2024 Provider: Valerio Mazariegos MD Diagnosis: 1 po q 6 to 8 hrs prn pain Last Documented On 2:16PM By Valerio Mazariegos ; [facility] Doxycycline Hyclate 100 MG O ral Tablet 10/20/2024 - 10/23/2024 Provider: Valerio Mazariegos MD Diagnosis: twice a day Last Documented On 5 4:13PM By Valerio Mazariegos ; [facility] oxyCODONE HCl 5 MG Oral Tablet 10/19/2024 - 10/23/2024 Provider: Valerio Mazariegos MD Diagnosis: [id number] ONE TABLET PO Q 4-6H FOR POST OP PAIN Last Documented On 5 9:49PM By Valerio Mazariegos ; [facility] Cefadroxil 500 MG Oral Capsule 10/19/2024 - 10/22/2024 Provider: Valerio Mazariegos MD Diagnosis: 1 tablet twice a day for 3 days Last Documented On 9:49PM By Valerio Mazariegos ; [facility] Meloxicam 15 MG Oral Tablet 10/19/2024 - 11/02/2024 Pr ovider: Valerio Mazariegos MD Diagnosis: once a day TAKE ONE P/O ONE TIME A DAY UNTIL FIN ISHED Last Documented On 9:49PM By Valerio Mazariegos ; [facility] Ondansetron HCl 4 MG Oral Tablet 10/19/2024 - 10/27/19 25 Provider: Valerio Mazariegos MD Diagnosis: 1-2 po q 4-6h PRN Nausea Last Documented On 5 9:49PM By Valerio Mazariegos ; [facility] Colace 100 MG Oral Capsule 10/19/2024 - 11/18/2024 Pro vider: Valerio Mazariegos MD Diagnosis: 1-2 tabs daily Last Documented On 5 9:49PM By Valerio Mazariegos ; [facility] Aspirin Adult Low Strength 8 1 MG Oral Tablet Delayed Release 10/19/2024 - 11/30/2024 Provider: Valerio belcher MD Diagnosis: twice a day Last Documented On 9:49PM By Valerio Mazariegos ; [facility] Acetaminophen 500 MG Oral Tablet 10/19/2024 - 11/19/19 25 Provider: Valerio Mazariegos MD Diagnosis: Take 2 tablets by mouth every 8 hours Last Documented On 9:49PM By Valerio Mazariegos ; [facility] levETIRAcetam 1000 MG Oral Tablet 09/01/2024 - 10/14/2024 Provider: Grisel alvares APRN Diagnosis: Last Documented On 9:36AM By Leyda Del Real ; [facility] Lidocaine 5% External Patch 04/18/2024 - 10/13/2024 Pr ovider: QAMAR BARNARD MD Diagnosis: Last Documented On 3:22PM By Brook Robertson ; [facility] Medications Administered Includes: Administered Medications in patient's chart No Administered Medications Recorded Vital Signs Includes: Vital Signs from 03/30/2024 through 03/30/2025 Vital Name 03/05/2025 09:14A 01/22/2025 09:36A 11/27/2024 08:54A 10/14/2024 09:12A 09/25/2024 08:49A Height (in) 62 62 62 62 62 Weight (lb) 170 170 176 176 162 Body Mass Index 31.1 31.1 32.2 32.2 29.6 Body Surface Area 1.8 1.8 1.8 1.8 1.7 Blood Pressure Sitting L 130/83 Pulse Rate-Sitting (bpm) 77 Oxygen Saturation (%) 99 Note: knc At [facility] bs Last Documented: On 03/05/2025 9:14AM ; [facility] On 01/22/2025 9:36AM ; [facility] On 11/27/2024 8:54AM ; [facility] On 10/14/2024 9:17AM ; [facility] On 09/25/2024 8:49AM ; [facility] Vital Name 09/24/2024 03:22P Height (in) 62 Weight (lb) 162 Body Mass Index 29.6 Body Surface Area 1.7 Pain Level 8 Last Documented: On 09/24/2024 3:22PM ; [facility] Results Includes: Results from 03/30/2024 through 03/30/2025 CBC With Differential/Platelet [facility] [place] Ordered by Leyda Del Real PA on 10/14/2024 Collected: 10/14/2024 Reported: 10/20/19 25 16:06 Last Documented On 5 5:31PM ; [facility] All test results are final unless otherw ise noted. WBC 6.1 x10E3/uL (3.4-10.8) None Last Documented On 5 5:31PM ; [facility] RBC 3.69 x10E6/uL (3.77-5.28) L (Low) Last Documented On 5 5:31PM ; [facility] Hemoglobin 12.4 g/dL (11.1-15.9) None Last Documented On 5 5:31PM ; [facility] Hematocrit 35.9 % (34.0-46.6) None Last Documented On 5 5:31PM ; [facility] MCV 97 fL (79-97) None Last Documented On 5 5:31PM ; [facility] MCH 33.6 pg (26.6-33.0) H (High) Last Documented On 5 5:31PM ; [facility] MCHC 34.5 g/dL (31.5-35.7) None Last Documented On 5 5:31PM ; [facility] Neutrophils 65 % (Not Estab.) None Last Documented On 5 5:31PM ; [facility] Immature Granulocytes 1 % (Not Estab.) None Last Documented On 5 5:31PM ; [facility] Lymphs 18 % (Not Estab.) None Last Documented On 5 5:31PM ; [facility] Monocytes 10 % (Not Estab.) None Last Documented On 5 5:31PM ; [facility] Eos 5 % (Not Estab.) None Last Documented On 5 5:31PM ; [facility] Basos 1 % (Not Estab.) None Last Documented On 5 5:31PM ; [facility] Platelets 150 x10E3/uL (150-450) None Last Documented On 5 5:31PM ; [facility] Neutrophils (Absolute) 4.0 x10E3/uL (1.4-7.0) None Last Documented On 5 5:31PM ; [facility] Immature Grans (Abs) 0.0 x10E3/uL (0.0-0.1) None Last Documented On 5 5:31PM ; [facility] Lymphs (Absolute) 1.1 x10E3/uL (0.7-3.1) None Last Documented On 5 5:31PM ; [facility] Monocytes(Absolute) 0.6 x10E3/uL (0.1-0.9) None Last Documented On 5 5:31PM ; [facility] Eos (Absolute) 0.3 x10E3/uL (0.0-0.4) None Last Documented On 5 5:31PM ; [facility] Baso (Absolute) 0.0 x10E3/uL (0.0-0.2) None Last Documented On 5 5:31PM ; [facility] RDW 13.9 % (11.7-15.4) None Last Documented On 5 5:31PM ; [facility] Comp. Metabolic Panel (14) [facility] Ordered by Leyda GALAN on 10/14/2024 Collected: 10/14/2024 Reported: 10/20/19 25 16:06 Last Documented On 5 5:31PM ; [facility] All test results are final unless otherw ise noted. Calcium 9.9 mg/dL (8.7-10.3) None Last Documented On 5 5:31PM ; [facility] Glucose 59 mg/dL (70-99) L (Low) Last Documented On 5 5:31PM ; [facility] BUN 12 mg/dL (8-27) None Last Documented On 5 5:31PM ; [facility] Protein, Total 8.0 g/dL (6.0-8.5) None Last Documented On 5 5:31PM ; [facility] Albumin 4.3 g/dL (3.9-4.9) None Last Documented On 5 5:31PM ; [facility] Bilirubin, Total 2.1 mg/dL (0.0-1.2) H (High) Last Documented On 5 5:31PM ; [facility] Alkaline Phosphatase 146 IU/L (44-121) H (High) Last Documented On 5 5:31PM ; [facility] AST (SGOT) 32 IU/L (0-40) None Last Documented On 5 5:31PM ; [facility] Potassium 4.6 mmol/L (3.5-5.2) None Last Documented On 5 5:31PM ; [facility] Sodium 127 mmol/L (134-144) L (Low) Last Documented On 5 5:31PM ; [facility] Chloride 93 mmol/L (96-106) L (Low) Last Documented On 5 5:31PM ; [facility] Creatinine 0.70 mg/dL (0.57-1.00) None Last Documented On 5 5:31PM ; [facility] ALT (SGPT) 15 IU/L (0-32) None Last Documented On 5 5:31PM ; [facility] Carbon Dioxide, Total 19 mmol/L (20-29) L (Low) Last Documented On 5 5:31PM ; [facility] BUN/Creatinine Ratio 17 (12-28) None Last Documented On 5 5:31PM ; [facility] Globulin, Total 3.7 g/dL (1.5-4.5) None Last Documented On 5 5:31PM ; [facility] eGFR 96 mL/min/1.73 (>59) None Last Documented On 5 5:31PM ; [facility] Prothrombin Time (PT) [facility] Ordered by Leyda GALAN on 10/14/2024 Collected: 10/14/2024 Reported: 10/20/19 16:06 Last Documented On 5 5:31PM ; [facility] All test results are final unless otherw ise noted. Prothrombin Time 13.5 sec (9.1-12.0) H (High) Last Documented On 5:31PM ; [facility] INR 1.2 (0.9-1.2) None Last Documented On 5 5:31PM ; [facility] Note: Reference interval is for non-anti coagulated patients. . Suggested INR therapeutic range for Vitamin K antagonist therapy: Standard Dose (moderate intensity therapeutic range): 2.0 - 3.0 Higher intensity therapeutic range 2.5 - 3.5 Nicotine and Metabolite, Quant [facility] [employer] [facility] [place] Ordered by Leyda GALAN on 10/14/2024 Collected: 10/14/2024 Reported: 10/20/19 16:06 Last Documented On 5 5:31PM ; [facility] All test results are final unless otherw ise noted. Nicotine <1.0 ng/mL None Last Documented On 10/19/2024 5:31PM ; [facility] Note: This test was developed and its performance characteristicsdetermined by [facility]. It has not been cleared orapproved by the Food and Drug Administration.Nicotine levels greater than 2.0 are consistent with theuse of tobacco or tobacco cessation products. Cotinine <1.0 ng/mL None Last Documented On 10/19/2024 5:31PM ; [facility] Note: This test was developed and its performance characteristicsdetermined by [facility]. It has not been cleared orapproved by the Food and Drug Administration.Cotinine levels greater than 20.0 are consistent with theuse of tobacco or tobacco cessation products. Hemoglobin A1c [facility] Ordered by Leyda GALAN on 10/14/2024 Collected: 10/14/2024 Reported: 10/20/19 16:06 Last Documented On 5 5:31PM ; [facility] All test results are final unless otherw ise noted. Hemoglobin A1c 5.1 % (4.8-5.6) None Last Documented On 5 5:31PM ; [facility] Note: . . Prediabetes: 5.7 - 6.4 Diabet es: >6.4 Glycemic control for adults with diabetes: <7.0 PTT, Activated [facility] Ordered by Leyda GALAN on 10/14/2024 Collected: 10/14/2024 Reported: 10/20/19 25 16:06 Last Documented On 5 5:31PM ; [facility] All test results are final unless otherw ise noted. aPTT 37 sec (24-33) H (High) Last Documented On 5 5:31PM ; [facility] Note: This test has not been validated f or monitoringunfractionated heparin therapy. aPTT-based therapeuticranges for unfractionated heparin therapy have not beenestablished. For general guidelines on Heparin monitoring,refer to the [facility] Directory of Services. Vitamin D, 25-Hydroxy [facility] Ordered by Leyda GALAN on 10/14/2024 Collected: 10/14/2024 Reported: 10/20/19 25 16:06 Last Documented On 5 5:31PM ; [facility] All test results are final unless otherw ise noted. Vitamin D, 25-Hydroxy 36.2 ng/mL (30.0-100.0) None Last Documented On 5 5:31PM ; [facility] Note: Vitamin D deficiency has been defi maddy by the [place] of[employer]icine and an Endocrine Society practice guideline as alevel of serum 25-OH vitamin D less than 20 ng/mL (1,2).The Endocrine Society went on to further define vitamin Dinsufficiency as a level between 21 and 29 ng/mL (2).1. IOM ([place] of [employer]). 2010. Dietary reference intakes for calcium and D. [place]: The National Academies Press.2. Veronica CARRASCO, Genaro MULLER, Shantal NICOLE, et al. Evaluation, treatment, and prevention of vitamin D deficiency: an Endocrine Society clinical practice guideline. JCEM. 2010; 96(2):1911-30. Fructosamine [facility] Ordered by Leyda GALAN on 10/14/2024 Collected: 10/14/2024 Reported: 10/20/19 16:06 Last Documented On 5 5:31PM ; [facility] All test results are final unless otherw ise noted. Fructosamine 317 umol/L (0-285) H (High) Last Documented On 5 5:31PM ; [facility] Note: Published reference interval for a pparently healthysubjects between age 20 and 60 is 205 - 285 umol/L and in apoorly controlled diabetic population is 228 - 563 umol/Lwith a mean of 396 umol/L. MRSA by SYDNIE [facility] Ordered by Leyda GALAN on 10/14/2024 Collected: 10/14/2024 Reported: 10/20/19 16:06 Last Documented On 5 5:31PM ; [facility] All test results are final unless otherw ise noted. MRSA by SYDNIE Negative (Negative) None Last Documented On 5 5:31PM ; [facility] Prealbumin [facility] Ordered by Leyda GALAN on 10/14/2024 Collected: 10/14/2024 Reported: 10/20/19 16:06 Last Documented On 5 5:31PM ; [facility] All test results are final unless otherw ise noted. Prealbumin 18 mg/dL (10-36) None Last Documented On 5 5:31PM ; [facility] Reported Physicians [facility] Ordered by Leyda GALAN on 10/14/2024 Collected: 10/14/2024 Reported: 10/20/19 16:06 Last Documented On 5 5:31PM ; [facility] All test results are final unless otherw ise noted. Reported Physicians See Note None Last Documented On 10/19/2024 5:31PM ; [facility] GUER[facility] Note: Reported Physicians:Ordering: LEYDA DEL REAL History of Present Illness History of Present Illness not supported for this document type No History of Present Illness Recorded Social History Description Last Updated Alcohol use 09/24/2024 Last Documented On 5 1:10PM ; [facility] Caffeine use 09/24/2024 Last Documented On 5 1:10PM ; [facility] No recent change in diet 09/24/2024 Last Documented On 5 1:10PM ; [facility] Not a current smoker. 09/24/2024 Last Documented On 5 1:10PM ; [facility] Not exercising regularly 09/24/2024 Last Documented On 5 1:10PM ; [facility] Not using drugs 09/24/2024 Last Documented On 5 1:10PM ; [facility] Smoking Status Unknown Procedures and Surgical History Includes: Procedures from 03/30/2024 through 03/30/2025 Procedures Code Diagnosis Performing Provider Service Location Service Date Triamcinolone/Ke nalog, 10mg per cc [id number] Trochanteric bursitis, right hip Alison GALAN-C [facility] 03/05/2025 Last Documented On 5 3:21PM ; [facility] DRAIN/INJECT, JOINT/BURSA (RIGHT) [id number] Trochanteric bursitis, right hip Alison GALAN-C [facility] 03/05/2025 Last Documented On 5 3:21PM ; [facility] PELVIS w/ 2-3 VIEW HIP (RIGHT) [id number] Trochanteric bursitis, right hip Alison Walton PA-C [facility] 01/22/2025 Last Documented On 5 1:41PM ; [facility] PELVIS w/ 2-3 VIEW HIP (LEFT) [id number] Unilateral primary osteoarthritis, left hip, Presence of left artificial hip joint Alison Walton PA-C [facility] 11/27/2024 Last Documented On 5 1:06PM ; [facility] GAIT TRAINING THERAPY (GP) [id number] Unilateral primary osteoarthritis, left hip, Presence of left artificial hip joint Samra Gaston PT [facility] PT [facility] Office 10/21/2024 Last Documented On 5 1:23PM ; [facility] THERAPEUTIC ACTIVITIES (GP) 81108 Unilateral primary osteoarthritis, left hip, Presence of left artificial hip joint Samra Ashleyy PT [facility] Office 10/21/2024 Last Documented On 5 1:23PM ; [facility] PT Eval -Low Complexity (GP) [id number] Unilateral primary osteoarthritis, left hip, Presence of left artificial hip joint Samra Kebrianney PT [facility] PT [facility] Office 10/21/2024 Last Documented On 5 1:23PM ; [facility] TOTAL HIP ARTHROPLASTY (LEFT) [id number] Unilateral primary osteoarthritis, left hip Valerio Mazariegos MD [facility] Surgical Division 10/21/2024 Last Documented On 9:03AM ; [facility] AP PELVIS w/ 1 VIEW HIP (LEFT) [id number] Unilateral primary osteoarthritis, left hip Juice Obregon PA-C [facility] 09/24/2024 Last Documented On 11:35AM ; [facility] Surgical History Last Updated History of appendectomy 09/24/2024 Last Documented On 5 1:10PM ; [facility] History of History of Gallbladder 2024 Last Documented On 5 1:10PM ; [facility] History of hysterectomy 09/24/2024 Last Documented On 5 1:10PM ; [facility] History of total hip replacement 025 Last Documented On 5 1:10PM ; [facility] Medical History Includes: Medical History in patient's chart Description Last Updated seizures 09/24/2024 Last Documented On 5 1:10PM ; [facility] History of Anemia 09/24/2024 Last Documented On 5 1:10PM ; [facility] History of arthritis 09/24/2024 Last Documented On 1:10PM ; [facility] History of Irregular Heartbeat 04/09/202 5 Last Documented On 1:10PM ; [facility] History of Liver Disease 09/24/2024 Last Documented On 5 1:10PM ; [facility] Family History Includes: Family History in patient's chart Description Last Updated Family history of heart disease 09/25/19 Last Documented On 5 1:10PM ; [facility] Stroke / Seizures 09/24/2024 Last Documented On 5 1:10PM ; [facility] Review of Systems Review of Systems not supported for this document type No Review of Systems Recorded Mental Status No Mental Status Recorded Functional Status No Functional Status Recorded Physical Exam Physical Exam not supported for this document type No Physical Exam Recorded Allergies Includes: Active, inactive, and resolved Allergies Substance Type Reaction Onset Date Resolved Date Statu s Tetanus Immune Globulin Allergy 10/13/2024 Active Last Documented On 03/05/2025 9:13AM ; [facility] Note: Lip Swelling-Major Sulfa Antibiotics Allergy 09/24/2024 A ctive Last Documented On 03/05/2025 9:13AM ; [facility] Note: Anaphylaxis-Major Keflex Allergy 09/24/2024 Active Last Documented On 03/05/2025 9:13AM ; [facility] Note: Anaphylaxis-Major Erythromycin Allergy 10/13/2024 Active Last Documented On 03/05/2025 9:13AM ; [facility] Note: Anaphylaxis-Major Demerol Allergy 01/22/2025 Active Last Documented On 5 9:13AM ; [facility] Ciprofloxacin Allergy Hives/Weal, Anaphylaxis 10/14/2024 Active Last Documented On 5 9:13AM ; [facility] Amoxicillin Allergy 09/24/2024 Active Last Documented On 5 9:13AM ; [facility] Note: Anaphylaxis-Major Encounters Includes: Encounters from 03/30/2024 through 03/30/2025 Encounter Provider Location Date Check-In Time Check-Out Time Diagnosis Follow Up Alison Walton PA-C [facility] 025 9:10AM 9:33AM Overweight Follow Up Alison Walton PA-C [facility] 9:23AM 10:11AM Post Op Alison Walton PA-C [facility] 8:36AM 9:11AM [facility] Valerio Mazariegos MD Surgery 025 10/22/2024 8:59AM 10/14/2024 11:59PM [facility] Valerio Mazariegos MD 10/14/2024 7:51AM 10/14/2024 11:59PM Pre Admission Testing Leyda GALAN [facility] 9:11AM 9:17AM Outside Test Leyda GALAN 09/25/2024 8:20AM 09/25/2024 11:59PM IN HOUSE REFERRAL Alison Walton PA-C [facility] 8:49AM 9:47AM Overweight Physician Specified Juice Obregon PA-C [facility] 12:59PM 1:31PM Overweight Insurance Includes: Active Insurance Policies Plan Name Member ID Group # Subscriber Relationship Effect jens Dates 1 - [employer] [id number] September Eulogio Self Clinical Notes Includes: Signed Clinical Notes starting from 06/01/2022 * Progress note Date Encounter Last Documented by 03/05/2025 Follow Up Last documented on 03/05/2025; 9:37 AM, Alison Walton [facility]C; [facility] Active Problems & Conditions - Joint Pain Hip Left Chief Complaint - 8w fu S/P Left MARIMAR Referred Here Referred by self. History of Present Illness Andreia Eulogio is a 64 year old female. [...] Findings - Vitals taken 03/05/2025 09:14 am [facility] Height 62 in Weight 170 [...] Care Team - QAMAR BARNARD MD - [facility] User Defined 5 Four month postop s/p [...] call sooner with any questions or concerns. * Progress note Date Encounter Last Documented by 01/22/2025 Follow Up Last documented on 01/22/2025; 11:56 AM, Alison Walton PA-C; [facility], [facility] Active Problems & Conditions - Joint Pain in the Left Hip Chief Complaint The Chief Complaint is: 8w fu S/P Left MARIMAR. Referred Here Referred by IHR By Howard Obregon. History of Present Illness Andreia Eulogio is a 64 year old female. - Symptoms giving away pain better: rest, heat pain worse: ult. bearing. - Allergy list reviewed - Problem list reviewed - Medication list reviewed - Previous history of new onset pain 1.5-2 years of pain - Pain is constant (100% of the time) - Patient pain level from 1-10: 8 - No previous treatment. - Review of medications documented Patient is here today for 3 month postoperative follow up s/p left MARIMAR that took place on 10/21/2024. Patient states overall she is doing well with her left hip pain symptoms. She reports minimal to no pain in the left hip. She is very happy with her surgical outcome. He is in her with the last couple weeks she has developed right hip pain. She does have a history of a hip replacement surgery in 2021 had complications with a seroma and needed further debridement. She describes her pain as sharp and aching mainly on the lateral aspect of the hip. She notices it most going from a sitting to standing position. She denies any specific injury, trauma, fall causing the symptoms occur. Denies any pain radiation. Denies any locking catching of the hip. Denies any groin pain. Current Medication - Benadryl Allergy 25 MG [...] Family History Heart disease Stroke / Seizures Review Of Systems Systemic: Feeling tired. No recent weight loss and no recent weight gain. Head: Headache. No sinus pain. Eyes: Vision problems. No Cataracts. Glasses/Contacts. No Glaucoma. Otolaryngeal: No hearing loss and no tinnitus. Cardiovascular: No chest pain or discomfort, no palpitations, no Hypertension, and no High Cholesterol. Pulmonary: No daytime asthma symptoms and no chronic cough. No wheezing. Gastrointestinal: No heartburn and no abdominal pain. Indigestion IBS. No Peptic Ulcer, no GI Stomach Bleed, and no Ulcers. Acid Reflux. Endocrine: No hot flashes. Muscle weakness. No Diabetes, no Hypothyroid, and no Hyperthyroid. Hematologic: No easy bleeding. A tendency for easy bruising and Anemia. Musculoskeletal: Arthritis, lower back pain, soft tissue swelling, and pain localized to one or more joints. Neurological: No dizziness. Convulsions. No numbness. Psychological: No anxiety, no emotional lability, and no depression. Insomnia. Not crying for no reason. Skin: No dry skin. No Ulcers. Scars. No rash. Allergic and Immunologic: Complaint of seasonal allergic reaction. Physical Findings - Vitals taken 01/22/2025 09:36 am At Height 62 in Weight 170 lbs Body Mass Index 31.1 kg/m2 Body Surface Area 1.8 m2 The patient is well-dressed well-groomed. They have normal mood and affect. They are ambulating without any assistive device at today's follow-up appointment. Left hip exam: The hip has normal alignment. Left leg approximately 1 mm longer right leg. The incision is intact and well healed. There is no induration, fluctuance, or drainage. There is no increased redness or heat. There is no effusion. Normal sensation. Normal neurovascular status. No calf tenderness. Negative Homans sign. Right hip exam: The hip has normal alignment. The incision is intact and well healed with some muscle deficit from previous seroma. There is no induration, fluctuance, or drainage. There is no increased redness or heat. There is no effusion. Patient has pain-free motion with gentle internal external rotation of the right hip. She has tenderness on palpation of the right greater trochanter. Normal sensation. Normal neurovascular status. No calf tenderness. Negative Homans sign. Tests Two-view x-rays of the right hip were obtained and personally reviewed today which show right total hip arthroplasty overall in good position. No acute gross abnormalities noted at this time. No signs of loosening or subsidence. Counseling/Education Tobacco non-user. use of tobacco assessment performed. - Lose weight Plan StartCited - Other Meloxicam 15 MG tablet once a day, 30 days, 0 refills dexAMETHasone Sodium Phosphate 4 MG/ML mL apply as directed USE WITH IONTOPHORESIS FOR PT, 30 days, 0 refills EndCited Patient screened for future fall risk: documentation of any fall with injury in past year. Fall Risk Assessment: This patient has been [...] Care Team - QAMAR BARNARD MD - [facility] Health Reminders - Assess BMI satisfied 01/22/2025. - Follow Up Plan BMI Management satisfied 01/22/2025. User Defined 5 12 week postop s/p left MARIMAR that took place on 10/21/24 Right hip bursitis Patient is progressing well postoperatively. Incision is well-healed. Continue PT and HEP. Counseled on lifetime antibiotic prophylaxis prior to dental procedures. Continue to progress activities as tolerated. We will have patient follow-up at 1 year postop. Patient expressed verbal understanding of this plan. They are to call with any concerns in the meantime. Patient has tenderness on palpation of the right greater trochanter. X-rays overall show stable right total hip arthroplasty. This time we have patient is having some right hip bursitis. Recommended oral anti-inflammatories, formal physical therapy, and iontophoresis to help alleviate her symptoms. Patient denies any absolute contraindications to receiving oral anti-inflammatories in office today. We will have patient follow up in 6-8 weeks for re-evaluation of right hip pain symptoms. Patient feels comfortable this plan moving forward we will call sooner with any questions or concerns. * Progress note Date Encounter Last Documented by 11/27/2024 Post Op Last documented on 11/27/2024; 11:18 AM, Alison De Dios; [facility], [facility] Active Problems & Conditions - Joint Pain in the Left Hip Chief Complaint The Chief Complaint is: S/P Left MARIMAR. Referred Here Referred by IHR By Howard Obregon. History of Present Illness Andreia Krishnan is [...] 1-10: 8 - No previous treatment. - Review of medications documented Patient is here today for 5 week postoperative follow up s/p left MARIMAR that took place on 10/21/2024. Patient states she is overall doing well at this time and has noticed significant improvement of postoperative pain. Patient continues physical therapy in the outpatient setting. Patient was given aspirin 81 mg b.i.d. for DVT prophylaxis for she is taking as prescribed. Patient overall is very happy with her surgical outcome and notices significant improvement of her pain. Denies any new fevers, chills, night sweats, chest pain or shortness breast lower extremity swelling, calf pain. Current Medication - Aspirin Adult Low Strength 81 MG Oral Tablet Delayed Release twice a day, 42 days, 0 refills - Benadryl Allergy 25 MG Oral Capsule [...] Ciprofloxacin Reaction: Hives/Weal (Severe), Anaphylaxis (Moderate) - Erythromycin - Keflex - Sulfa Antibiotics - Tetanus Immune Globulin Family History Heart disease Stroke / Seizures Review Of Systems Systemic: Feeling tired. No recent weight loss and no recent weight gain. Head: Headache. No sinus pain. Eyes: Vision problems. No Cataracts. Glasses/Contacts. No Glaucoma. Otolaryngeal: No hearing loss and no tinnitus. Cardiovascular: No chest pain or discomfort, no palpitations, no Hypertension, and no High Cholesterol. Pulmonary: No daytime asthma symptoms and no chronic cough. No wheezing. Gastrointestinal: No heartburn and no abdominal pain. Indigestion IBS. No Peptic Ulcer, no GI Stomach Bleed, and no Ulcers. Acid Reflux. Endocrine: No hot flashes. Muscle weakness. No Diabetes, no Hypothyroid, and no Hyperthyroid. Hematologic: No easy bleeding. A tendency for easy bruising and Anemia. Musculoskeletal: Arthritis, lower back pain, soft tissue swelling, and pain localized to one or more joints. Neurological: No dizziness. Convulsions. No numbness. Psychological: No anxiety, no emotional lability, and no depression. Insomnia. Not crying for no reason. Skin: No dry skin. No Ulcers. Scars. No rash. Allergic and Immunologic: Complaint of seasonal allergic reaction. Physical Findings - Vitals taken 11/27/2024 08:54 am tm Height 62 in Weight 176 lbs Body Mass Index 32.2 kg/m2 Body Surface Area 1.8 m2 The patient is well-dressed well-groomed. They have normal mood and affect. They are ambulating without any assistive device at today's follow-up appointment. Left hip: The hip has normal alignment. Left leg approximately 3 mm longer right leg. The incision is intact and healing appropriately for this postoperative timeframe. There is no induration, fluctuance, or drainage. There is no increased redness or heat. There is no effusion. Normal sensation. Normal neurovascular status. No calf tenderness. Negative Homans sign. Tests X-rays performed today AP pelvis and AP lateral of the left hip show implant in good position no signs of loosening or osteolysis left leg length appears 2-3 mm longer comparatively to the right Previous Tests Musculoskeletal: History of Blood Tests Dr. jorge Valencia. Counseling/Education Tobacco non-user. use of tobacco assessment performed. - Lose weight Plan Patient screened for future fall risk: documentation of any fall with injury in past year. Fall Risk Assessment: This patient has been [...] Care Team - QAMAR BARNARD MD - [facility] Health Reminders - Assess BMI satisfied 11/27/2024. - Follow Up Plan BMI Management satisfied 11/27/2024. User Defined 5 5 week postop s/p left MARIMAR that took place on 10/21/24 Patient is progressing well postoperatively. Incision is well-healed. Continue PT and HEP. Counseled on lifetime antibiotic prophylaxis prior to dental procedures. Continue to progress activities as tolerated. We will have patient follow-up at three-month postop. Patient expressed verbal understanding of this plan. They are to call with any concerns in the meantime. * Progress note Date Encounter Last Documented by 10/14/2024 Pre Admission Testing Last docum ented on 10/20/2024; 11:09 AM, Leyda GALAN; [facility], [facility] Active Problems & Conditions - Joint Pain in the Left Hip Chief Complaint The Chief Complaint is: Lt hip pain. History of Present Illness September Eulogio is a 64 year old [...] treatment. - - Review of medications documented This patient is a pleasant 64 yo WF who presents with left hip pain. The pain has been going on for 3 months but has gotten progressively worse. She describes it as a sharp pain. It is now to the point that it is affecting her ADLs. She has tried NSAIDs without relief of her pain. She has fallen. She has used a cane as an assistive device. She was seen at Dr Mazariegos's office and evaluated and it was determined that she has severe DJD affecting the left hip. Pt was offered a Left Anterior vs Posterior Total Hip Arthroplasty and agreed to the procedure. Pt denies a h/o DVT/PE. No trouble with anesthesia in the past. Pt denies h/o COPD/Asthma/PATRICK. Current Medication - Benadryl Allergy 25 MG [...] Current diet: No recent change in diet. Caffeine use: Caffeine use. Alcohol: Alcohol use. Drug Use: Not using drugs. Habits: Not exercising regularly. Allergies - Amoxicillin - Ciprofloxacin Reaction: Hives/Weal (Severe), Anaphylaxis (Moderate) - Erythromycin - Keflex - Sulfa Antibiotics - Tetanus Immune Globulin Family History Heart disease Stroke / Seizures Review Of Systems Constitutional: Neg for fevers or chills. Eyes: Neg for blurry vision or change in vision. ENT: Neg for sore throat, ear pain, or dizziness. Cardiac: Neg for chest pain or dyspnea on exertion. Respiratory: Neg for shortness of breath. Gastrointestinal: Neg for nausea, vomiting, diarrhea, or constipation. Musculoskeletal: Pos for left hip pain. Neurologic: Neg for headaches or seizures. Psychiatric: Neg for anxiety and depression. Integumentary: Neg for rash. Physical Findings - Vitals taken 10/14/2024 09:12 am EC BP-Sitting L 130/83 mmHg Pulse Rate-Sitting 77 bpm Height 62 in Weight 176 lbs Body Mass Index 32.2 kg/m2 Body Surface Area 1.8 m2 Oxygen Saturation 99 % Constitutional: This is a pleasant 64 yo WF in no acute distress. HEENT: Normocephalic, atraumatic. PEERLA. Extraocular muscles intact. Conjunctiva pink without exudate. Oropharynx pink and moist. Neck supple. No JVD. Cardiac: SI, S2. RRR. No M/R/G. Respiratory: Lungs CTA bilaterally. No wheezes, rales, or rhonchi. Abdomen: Soft, nontender, nondistended. Active bowel sounds. No visible masses. Musculoskeletal: Bilateral LE without clubbing, cyanosis or edema. Integumentary: Skin is pink, warm and dry. No rashes. Neurologic: CN II-XII grossly intact. Psychiatric: Judgment and affect appropriate. Tests - Test: CBC With Differential/Platelet Report Date: 10/19/2024 WBC 6.1 x10E3/uL RBC 3.69 x10E6/uL Low Hemoglobin 12.4 g/dL Hematocrit 35.9 % MCV 97 fL MCH 33.6 pg High MCHC 34.5 g/dL Neutrophils 65 % Immature Granulocytes 1 % Lymphs 18 % Monocytes 10 % Eos 5 % Basos 1 % Platelets 150 x10E3/uL Neutrophils (Absolute) 4.0 x10E3/uL Immature Grans (Abs) 0.0 x10E3/uL Lymphs (Absolute) 1.1 x10E3/uL Monocytes(Absolute) 0.6 x10E3/uL Eos (Absolute) 0.3 x10E3/uL Baso (Absolute) 0.0 x10E3/uL RDW 13.9 % - Test: Comp. Metabolic Panel (14) Report Date: 10/19/2024 Calcium 9.9 mg/dL Glucose 59 mg/dL Low BUN 12 mg/dL Protein, Total 8.0 g/dL Albumin 4.3 g/dL Bilirubin, Total 2.1 mg/dL High Alkaline Phosphatase 146 IU/L High AST (SGOT) 32 IU/L Potassium 4.6 mmol/L Sodium 127 mmol/L Low Chloride 93 mmol/L Low Creatinine 0.70 mg/dL ALT (SGPT) 15 IU/L Carbon Dioxide, Total 19 mmol/L Low BUN/Creatinine Ratio 17 Globulin, Total 3.7 g/dL eGFR 96 mL/min/1.73 - Test: Prothrombin Time (PT) Report Date: 10/19/2024 Prothrombin Time 13.5 sec High INR 1.2 - Test: Hemoglobin A1c Report Date: 10/19/2024 Hemoglobin A1c 5.1 % - Test: PTT, Activated Report Date: 10/19/2024 aPTT 37 sec High - Test: Vitamin D, 25-Hydroxy Report Date: 10/19/2024 Vitamin D, 25-Hydroxy 36.2 ng/mL - Test: Fructosamine Report Date: 10/19/2024 Fructosamine 317 umol/L High - Test: MRSA by SYDNIE Report Date: 10/19/2024 MRSA by SYDNIE Negative - Test: Prealbumin Report Date: 10/19/2024 Prealbumin 18 mg/dL EKG- SR, 77 Sodium- 132 User Defined 5 1. Preoperative Exam- Pt underwent preoperative laboratory workup and diagnostic studies. 2. Essential Tremor- Continue Propranolol. 3. Epilepsy- Last Seizure Apr 2024.Continue Keppra. 4. Cirrhosis- Last office note is on the chart. 5. Left Hip Pain secondary to DJD- Proceed with surgery as scheduled with Dr Mazariegos on 10/21/24. I discussed this case with Dr Barrera. He was okay to proceed with surgery but wanted her to be the first case. Dr Mazariegos is aware of the elevated Fructosamine. Dr Barrera is aware of the elevated Total Bili and coags. ASC Questions Does the patient have any additional hardware in their body? RT MARIMAR Is the patient a Diabetic? No Is the patient on a Semaglutide? No Has the patient ever been treated for MRSA? No Has the patient ever smoked? No Does the patient drink daily ETOH? No Do you have a h/o GIB following NSAIDs use? No Have you ever had to hospitalized after a surgery that was supposed to be outpatient? No In the last 6 weeks, have you had any respiratory illnesses including, but not limited to Flu, COVID or Pneumonia? No Does the patient have a clear discharge plan that includes having someone drop them off for surgery, pick them up, and stay with them 72 hrs. This person will have to be able to cook meals, assist in getting the patient to and from the restroom and give medications. Yes, daughter * Progress note Date Encounter Last Documented by 09/25/2024 IN HOUSE REFERRAL Last documente d on 09/25/2024; 10:34 AM, Alison Walton PA-C; [facility], [facility] Active Problems & Conditions - Joint Pain in the Left Hip Chief Complaint The Chief Complaint is: Lt hip pain. Referred Here Referred by IHR By Howard Obregon. History of Present Illness September Eulogio is a 64 year old [...] medications documented Patient is here today for evaluation of her left hip. Patient states she has had pain in her left hip for many years but over the last month it has become excruciating and she was a lot of pain with weight-bearing activities. She is unable to put shoes and socks on without excruciating pain. Currently uses a cane to ambulate. She was not currently taking anything for pain. Her pain is mainly on the groin, on the outside of her hip, and radiates down her thigh. She does have a history of a right MARIMAR with Dr. Elena that took place in 2017. She did have a postop complication of a seroma that developed. Patient denies any injury, trauma, fall to her left hip. Patient is currently in recovery from alcohol those in over the last 10 months and she had incidents of acute liver failure where she was being treated in the hospital. She was being followed by her primary care provider for this and says that her liver enzymes are at normal levels at this time. Denies any past medical history of diabetes, sleep apnea, kidney disease, and cardiovascular disease. Current nonsmoker. Current Medication - Keppra 1000 MG Oral Tablet take as directed 0 days, 0 refills - levETIRAcetam 1000 MG Oral Tablet 90 days, 0 refills - Lidocaine 5% External Patch 30 days, 0 refills - Propranolol HCl 10 MG Oral Tablet 90 days, 0 refills Past Medical/Surgical History Diagnoses: Anemia Irregular Heartbeat Liver Disease. Arthritis Seizures. Surgical: - Appendectomy - Hysterectomy - History of Gallbladder - Total hip replacement Social History Not a current smoker. Current diet: No recent change in diet. Caffeine use: Caffeine use. Alcohol: Alcohol use. Drug Use: Not using drugs. Habits: Not exercising regularly. Allergies - Amoxicillin - Keflex - Sulfa Antibiotics Family History Heart disease Stroke / Seizures Review Of Systems Systemic: Feeling tired. No recent weight loss and no recent weight gain. Head: Headache. No sinus pain. Eyes: Vision problems. No Cataracts. Glasses/Contacts. No Glaucoma. Otolaryngeal: No hearing loss and no tinnitus. Cardiovascular: No chest pain or discomfort, no palpitations, no Hypertension, and no High Cholesterol. Pulmonary: No daytime asthma symptoms and no chronic cough. No wheezing. Gastrointestinal: No heartburn and no abdominal pain. Indigestion IBS. No Peptic Ulcer, no GI Stomach Bleed, and no Ulcers. Acid Reflux. Endocrine: No hot flashes. Muscle weakness. No Diabetes, no Hypothyroid, and no Hyperthyroid. Hematologic: No easy bleeding. A tendency for easy bruising and Anemia. Musculoskeletal: Arthritis, lower back pain, soft tissue swelling, and pain localized to one or more joints. Neurological: No dizziness. Convulsions. No numbness. Psychological: No anxiety, no emotional lability, and no depression. Insomnia. Not crying for no reason. Skin: No dry skin. No Ulcers. Scars. No rash. Allergic and Immunologic: Complaint of seasonal allergic reaction. Physical Findings - Vitals taken 09/25/2024 08:49 am bs Height 62 in Weight 162 lbs Body Mass Index 29.6 kg/m2 Body Surface Area 1.7 m2 She is well-dressed and well-groomed. She has normal mood and affect. She has not antalgic gait and currently use a cane to ambulate. Left hip exam: Left leg proximally 3 mm shorter than right leg.. The skin is intact. No increased redness or heat. No effusion. No bony deformity. There is tenderness on palpation of the left greater trochanter. No tenderness over the SI joints. No tenderness over the lumbar spine. Patient has very limited internal and external rotation of the left hip secondary to pain. Normal motor and sensory. Normal neurovascular status. SLR: Pain to the groin/hip HEIDI: Unable to evaluate secondarily to pain FADIR: Unable to evaluate secondarily pain. Log roll: Pain to the groin/hip Stinchfield: Patient unable to perform Right hip exam: Patient has well-healed anterior incision from previous right MARIMAR with muscle loss over the incision. She was pain-free motion with gentle internal external rotation of the right hip. Assessment - Overweight Previous Tests Musculoskeletal: History of Blood Tests August, Dr. patel. Two-view x-rays of the left hip were performed on 09/24/2024 and personally reviewed today which show severe narrowing of the left hip joint space with [id number] arthrosis, osteophyte formation, and subchondral sclerosis. Counseling/Education - Tobacco non-user - Use of tobacco assessment performed - Lose weight Plan - Patient screened for future fall risk: [...] software and may contain errors and omissions. Health Reminders - Assess BMI satisfied 09/25/2024. - Assess Tobacco Use satisfied 09/25/2024. User Defined 5 Severe osteoarthritis of the left hip I reviewed and evaluated this patient with Dr. Mazariegos in office today. Patient has severe osteoarthritis of the left hip and is unable to perform daily activities secondarily to pain. I believe at this time due to the extent of her arthritis and her significant pain patient would benefit from a total hip arthroplasty. Patient is in agreement with this plan going forward at this time. We discussed the indications, risks, benefits, alternatives, and recovery associated with a left total hip replacement today in detail. Specific risks discussed include but are not limited to: Bleeding, infection, pain, scarring, nerve and/or blood vessel injury, tendon/ligament damage, fracture, dislocation, reaction to or failure of prosthetic implants, limb length discrepancy, blood clots, as well as the medical and anesthetic risks of surgery. Patient voiced understanding. Plan to follow up after scheduled surgery. * Progress note Date Encounter Last Documented by 09/24/2024 Physician Specified Last documen chadwick on 09/29/2024; 1:10 PM, Juice Obregon PA-C; [facility], [facility] Active Problems & Conditions - Joint Pain in the Left Hip Chief Complaint The Chief Complaint is: Lt hip pain. Referred Here Referred by. History of Present Illness September Eulogio is a 64 year old [...] of medications documented Patient is here today complaints of left hip pain she has had this problem off and on for about a year and a half in his ready to consider doing a left hip replacement she had a prior right hip replacement 2017 that was complicated by a seroma that she did have to have antibiotics for. Dr. Elena did her surgery for that. She says it bothers her walking it is a constant pain when she is trying to bear weight pain in the left leg in groin area. She is a recovering alcoholic and had some liver issues last year with it but that all seems to have resolved she says. Current Medication - Keppra 1000 MG Oral Tablet take as directed 0 days, 0 refills - levETIRAcetam 1000 MG Oral Tablet 90 days, 0 refills - Lidocaine 5% External Patch 30 days, 0 refills - Propranolol HCl 10 MG Oral Tablet 90 days, 0 refills Past Medical/Surgical History Diagnoses: Anemia Irregular Heartbeat Liver Disease. Arthritis Seizures. Surgical: - Appendectomy - Hysterectomy - History of Gallbladder - Total hip replacement Social History Not a current smoker. Current diet: No recent change in diet. Caffeine use: Caffeine use. Alcohol: Alcohol use. Drug Use: Not using drugs. Habits: Not exercising regularly. Allergies - Amoxicillin - Keflex - Sulfa Antibiotics Family History Heart disease Stroke / Seizures Review Of Systems Systemic: Feeling tired. No recent weight loss and no recent weight gain. Head: Headache. No sinus pain. Eyes: Vision problems. No Cataracts. Glasses/Contacts. No Glaucoma. Otolaryngeal: No hearing loss and no tinnitus. Cardiovascular: No chest pain or discomfort, no palpitations, no Hypertension, and no High Cholesterol. Pulmonary: No daytime asthma symptoms and no chronic cough. No wheezing. Gastrointestinal: No heartburn and no abdominal pain. Indigestion IBS. No Peptic Ulcer, no GI Stomach Bleed, and no Ulcers. Acid Reflux. Endocrine: No hot flashes. Muscle weakness. No Diabetes, no Hypothyroid, and no Hyperthyroid. Hematologic: No easy bleeding. A tendency for easy bruising and Anemia. Musculoskeletal: Arthritis, lower back pain, soft tissue swelling, and pain localized to one or more joints. Neurological: No dizziness. Convulsions. No numbness. Psychological: No anxiety, no emotional lability, and no depression. Insomnia. Not crying for no reason. Skin: No dry skin. No Ulcers. Scars. No rash. Allergic and Immunologic: Complaint of seasonal allergic reaction. Physical Findings - Vitals taken 09/24/2024 03:22 pm Height 62 in Weight 162 lbs Body Mass Index 29.6 kg/m2 Body Surface Area 1.7 m2 Pain Level 8 Patient walks with a nonantalgic gait She is very little internal external rotation of the left hip and pain with left hip flexion Neurovascular intact Tests Two views left hip show significant degenerative changes with the left hip joint 09/24/2024 Assessment - Overweight Left hip OA Previous Tests Musculoskeletal: History of Blood Tests August, Dr. patel. Available previous imaging studies were reviewed Available previous history reviewed Counseling/Education - Tobacco non-user - Use of tobacco assessment performed - Lose weight Plan - Patient screened for future fall risk: [...] therapy has been discussed with the patient. Patient was seen by myself Juice Obregon PA-C. Patient will follow up with me as needed I am going to refer her to Dr. Cervantes team she will see Alison GALAN-C tomorrow to talk about surgical option for this. She would like to try to get this done as soon as possible. Notes This dictation was done with voice recognition software and may contain errors and omissions.
--- OUTSIDE RECORDS SUMMARY | 2025-03-30 10:55 | XMS_ITS ---
Care Plan - [facility], [facility] Created on: March 30, 2025 Andreia Krishnan : 1960 Sex: Female Author Organization [facility] , [facility] Address [address] [place] [address] Phone Care Team Providers Care Vp Mobile Products Name Role Phone AKIL HERNÁNDEZ, QAMAR Primary Care Provider [phone] Delilah HERNÁNDEZ, [facility] [phone]
--- OUTSIDE RECORDS SUMMARY | 2025-03-30 10:55 | XMS_ITS | Clinical Summary ---
Author Organization [facility] , [facility] Address [address] [place] [address] Phone Care Team Providers Care Textile Supervisor Name Role Phone AKIL HERNÁNDEZ, QAMAR Primary Care Provider [phone] Delilah HERNÁNDEZ, Valerio Unavailable [phone] Reason for Visit and Chief Complaint [facility] Problems Includes: Problems addressed during this encounter and other active Problems All Visits Onset Date Resolved Date Provider Condition S tatus Joint Pain Hip Left 09/24/2024 Juice Ruiz Active Last Documented On 5 12:55PM ; [facility] Plan of Treatment Future Appointments Date Time Location Provi jean pierre Follow Up 10/22/2025 9:30AM [facility] PS C Alison Walton PA-C Last Documented On 10:12AM ; [facility] Assessments Includes: Assessments from this encounter No Assessments Recorded Medical Equipment - Implanted Devices Includes: Current Devices No Medical Equipment Recorded Medications Includes: Medications discussed during this encounter and other current Medications Current Medications (continue as prescribed) Meloxicam 15 MG Oral Tablet 03/05/2025 - 04/04/2025 Pr ovider: Alison Walton PA-C Diagnosis: once a day Last Documented On 5 9:45AM By ANGELIA Phan ; [facility] Magnesium Gluconate 500 (27 Mg) MG Oral Tablet 025 Provider: Diagnosis: Last Documented On 5 3:24PM By Brook Robertson ; [facility], [facility] Benadryl Allergy 25 MG Oral Capsule 10/13/2024 Provi jean pierre: Diagnosis: Last Documented On 5 3:23PM By Brook Robertson ; [facility] Multivitamin Adults Oral Tablet 10/13/2024 Provider: Diagnosis: Last Documented On 5 3:23PM By Brook Robertson ; [facility] Keppra 1000 MG Oral Tablet 09/24/2024 Provider: Diagnosis: Last Documented On 5 3:24PM By Calos Santos ; [facility] Propranolol HCl 10 MG Oral Tablet 09/01/2024 Provide r: Diagnosis: Last Documented On 5 3:24PM By Calos Santos ; [facility] Medications Administered Includes: Administered Medications from this encounter No Administered Medications Recorded Results Includes: Results discussed during this encounter No Results Recorded For Specified Dates History of Present Illness Includes: History of Present Illness from this encounter No History of Present Illness Recorded Social History No Social History Recorded - Smoking Status Unknown Medical History Includes: Medical History addressed during [...] Active Last Documented On 03/05/2025 9:13AM ; [facility] Note: Lip Swelling-Major Sulfa Antibiotics Allergy 09/24/2024 A ctive Last Documented On 03/05/2025 9:13AM ; [facility] Note: Anaphylaxis-Major Keflex Allergy 09/24/2024 Active Last Documented On 03/05/2025 9:13AM ; [facility] Note: Anaphylaxis-Major Erythromycin Allergy 10/13/2024 Active Last Documented On 03/05/2025 9:13AM ; [facility] Note: Anaphylaxis-Major Demerol Allergy 01/22/2025 Active Last Documented On 5 9:13AM ; [facility] Ciprofloxacin Allergy Hives/Weal, Anaphylaxis 10/14/2024 Active Last Documented On 5 9:13AM ; [facility] Amoxicillin Allergy 09/24/2024 Active Last Documented On 5 9:13AM ; [facility], [facility] Note: Anaphylaxis-Major Encounters Encounter Provider Location Date Check-In Time Check-Out Time Diagnosis [facility] Valerio Mazariegos MD 5 7:51AM 11:59PM Insurance Includes: Active Insurance Policies Plan Name Member ID Group # Subscriber Relationship Effect jens Dates 1 - [employer] [id number] September Eulogio Mei Clinical Notes Includes: Clinical Notes from this encounter No Clinical Notes Recorded
--- OUTSIDE RECORDS SUMMARY | 2025-03-30 10:55 | XMS_ITS | Clinical Summary ---
Author Organization [employer] ([place], [place], [place], [place]) Address [address] [place] [address] Care Team Providers Care Converting Operator Name Role Phone Rudolph Young MD Primary Care Provider [phone] Allergies Active Allergy Reactions Criticality Noted Date [...] Date Wale rded Speak language other than Palauan at home Not on file 03/19/2024 Want [...] Mass Index - - Plan of Treatment Health Maintenance Due Date Last Done Comments CT Colonography 1960 Colonoscopy 1960 Colorectal Cancer Screening 1960 DXA SCAN 1960 FOBT/FIT 1960 Fit-DNA (Cologuard) 1960 Sigmoidoscopy 1960 Depression Screening (12+) 1971 Tobacco Cessation Counseling and Screening (12+) 1971 HIV Screening 09/10/1974 Hepatitis C Screening 09/10/1977 DTAP/TDAP/TD VACCINES (1 - Tdap) 09/10/1978 Pneumococcal 50+ years (1 of 2 - PCV) 09/10/1978 Pap Smear 09/10/1980 Lipid Panel 09/10/2004 Shingles Vaccine (Zoster) (1 of 2) 09/10/2009 Breast Cancer Screening 03/03/2017 03/03/20 15, 02/23/2015, 02/23/2015 Respiratory Syncytial Virus (RSV) Adult or (1 - Risk 60-74 years 1-dose series) 2019 Falls Risk Screening 06/18/2024 COVID-19 VACCINE ( - season) 2025 04/14/2021, 07/14/2020, 06/16/2020 Influenza Vaccine (#1) 2025 06/07/2023 Insurance [facility] [employer] MEDICARE HMO Care Teams Converting Operator Relationship Specialty Start Date End Date Rudolph Young MD [address] [place] [address] PCP - General Adolescent Medicine 03/19/24
--- OUTSIDE RECORDS SUMMARY | 2025-03-30 10:55 | XMS_ITS | Clinical Summary ---
Author Organization [facility] Address [address] [place] [address] Care Team Providers Care X Ray Tech Name Role Phone Cari Aspen De Dios APRN Primary Care Provider [phone] Allergies Active Allergy Reactions Criticality Noted Date Comments Amoxicillin Anaphylaxis,Unknown - Patient states they do not know rxn details High 02/09/2015 Cephalexin Anaphylaxis,Unknown - Patient states they do not know rxn details,Other - please document in the comment field High 09/18/2014 Keflex Ciprofloxacin Other - please docum ent in the comment field,Unknown - Patient states they do not know rxn details Low 09/18/2014 cipro Erythromycin Anaphylaxis,Other - please document in the comment field,Unknown - Patient states they do not know rxn details High 09/18/2014 erythromycin Meperidine Anaphylaxis,Unknown - Patient states they do not know rxn details High 02/09/2015 Sulfa Drugs Anaphylaxis High 03/01/2018 Tetanus Toxoids Anaphylaxis,Other - please document in the comment field High 09/18/2014 tetanus toxoid Medications propranolol (Inderal) 10 MG tabletIndication s:Essential tremor TAKE 1 TABLET BY MOUTH TWO TIMES A DAY 180 tablet 3 12/02/2024 Active levETIRAcetam (Keppra) 1000 MG tabletIndication s:Seizure disorder (CMS/HCC) Take 1 tablet by mouth 2 times a day. 60 tablet 5 01/12/2025 6 Active Active Problems Problem Noted Date Diagnosed Date Focal epilepsy 06/13/2022 Breakthrough seizure 06/13/2022 Resolved Problems Problem Noted Date Diagnosed Date Resolved Date Seizure 02/09/2015 06/13/2022 Encounters Date Type Department Care Team Description 01/12/2025 2:00 PM EDT Consult OR Clinic [facility] [address] [place] [address] Harjinder Adam MD Seizure disorder ([facility]) 01/12/2025 Travel from Last 3 Months Immunizations Immunization Administration Dates Next Due Influenza, Unspecified 03/31/2016 Influenza, injectable, quadrivalent 03/18/2018 Influenza, injectable, quadrivalent, preservativ e free 04/11/2022,02/09/2015 Family History Medical History Relation Name Comments Bicuspid aortic valve Brother 1 Coronary artery disease Brother 2 Conversions - Other Daughter Seizure Coronary artery disease Father Fibromyalgia Mother Conversions - Other Other Seizure Conversions - Other Sister patent f oramen ovale Relation Name Status Comments Brother 1 Brother 2 Daughter Father Mother Other Sister Social History Tobacco Use Types Packs/Day Years Used Date Smoking Tobacco: Never Smokeless Tobacco: Never Tobacco Cessation:Counseling Given: Not Answered Alcohol Use Standard Drinks/Week Comments Yes 0 (1 standard drink = 0.6 oz pure alcohol) Alcoholic Drinks/day: Social alcohol use CAGE ASSESSMENT Answer Date Recorded Cage unable to access Not on file 06/13/2022 Cage max number of drinks Not on file 2021 Cage Beverages a week Not on file 06/13/2022 Have you ever felt you should CUT down on your d rinking? 1 06/13/2022 Have you been ANNOYED by people criticizing your drinking? 0 06/13/2022 Have you felt GUILTY about your drinking? 0 06/13/2022 Have you had a drink first t lianne in the morning (EYE-MOUNTER CLARINETS) to steady your nerves or to get rid of a hangover? 0 06/13/2022 CAGE Questionnaire Score 1 022 Comments Unknown Sex and Gender Information Value Date Recorded Sex Assigned at Not on file Legal Sex Female 7:57 PM EDT Gender Identity Not on file Sexual Orientation Not on file Last Filed Vital Signs Vital Sign Reading Time Taken Comments Blood Pressure 140/80 01/12/2025 1:35 PM EDT Pulse 81 01/12/2025 1:35 PM EDT Temperature 36.7 C (98.1 F) 06/13/2022 11:47 AM EST Respiratory Rate 18 06/13/2022 11:47 AM EST Oxygen Saturation 98% 01/12/2025 1:35 PM EDT Inhaled Oxygen Concentration - - Weight 74.8 kg (165 lb) 01/12/2025 1:35 PM EDT Height 157.5 cm (5' 2 ) 01/12/2025 1:35 PM EDT Body Mass Index 30.18 01/12/2025 1:35 PM EDT Plan of Treatment Health Maintenance Due Date Last Done Comments [facility]-Bone Density Scan 1960 [facility]-Depression Screening 1960 [facility]-Medicare Annual Wellness (AWV) 1960 [facility]-/Child/Adol SDOH Screenings 1960 [facility]- SDOH Screenings 09/10/1977 [facility]-Adult SDOH Screenings 09/10/1977 [facility]-DTaP,Tdap,and Td Vaccines (1 - Tdap) 09/10/1978 CT Colonography 09/10/2004 Colonoscopy 09/10/2004 FIT-DNA 09/10/2004 FIT 09/10/2004 Sigmoidoscopy 09/10/2004 [facility]-Breast Cancer Screening 02/23/2017 02/23/2015 [facility]-Zoster Vaccines (2 of 2) 10/16/2024 08/21/2024 FOBT 12/10/2024 12/11/2023 [facility]-Colorectal Cancer Screening 12/10/2024 [id number] Vaccine ( season) 2025 04/14/2021, 07/14/2020, 06/16/2020 [facility]-Influenza Vaccine (#1) 02/16/202504/17, 06/07/2023, 04/11/2022, Additional history exists [facility]-RSV Vaccine: 60+ Years or (1 - 1-dose 75+ series) 09/10/2034 [facility]-Hepatitis C Screening Completed 06/12/2022 [facility]-Pneumococcal Vaccine: 50+ Years Completed 08/21/2024 [facility]-Obesity Intervention Completed 01/12/2025, 04/0 06/2023 HPV Vaccines Aged Out No longer eligi ble based on patient's age to complete this topic [facility]-HIB Vaccines Aged Out No longer e ligible based on patient's age to complete this topic [facility]-Hepatitis A Vaccines Aged Out No longer eligible based on patient's age to complete this topic [facility]-IPV Vaccines Aged Out No longer e ligible based on patient's age to complete this topic [facility]-Rotavirus Vaccines Aged Out No lo nger eligible based on patient's age to complete this topic Procedures Procedure Name Priority Date/Time Associated Diagnosis Comments HEPATITIS C ANTIBODY - ED W/REFLEX TO HCV QUANT PCR STAT 06/12/2022 11:25 PM EST MAMMOGRAPHY BREAST SCREENING TOMOSYNTHESIS BILATERAL Routine 02/23/2015 8:03 AM EDT from Last 3 Months or Most Recently Relevant to Health Maintenance Results * Hepatitis C Antibody - ED (06/12/2022 11:25 PM EST) Hepatitis C Antibody Negative Negative 06/13/2022 12:35 AM EST [facility] Blood Venous blood specimen / Unknown Venipuncture / Unknown 06/12/2022 11:25 PM EST 06/12/2022 11:38 PM EST Teddy Borrego MD LAB BLOOD ORDERABLES Fi nal Result [facility] [address] [place] [address] * Mammography Breast Screening Tomosynthesis Bilateral (02/23/2015 8:03 AM EDT) Anatomical Region Laterality Modality Breast Bilateral Mammography Impressions 09/02/2015 9:48 AM EDT BI-RADS Assessment Category 0: Incomplete: Needs additional imaging evaluation. RECOMMENDATION: 90 Degree Lateral w/ Santos. CC Spot Compression w/ Santos. Ultrasound if finding persists. Page 1 of 2 Patient Name:Eulogio September : 1960 Age: 54 Gender: femaleDate of Service: 02/23/2015 eferring Phy:Kaur Pratt M.D.Account: [id number] COMMUNICATION: The results and recommendations will be sent to the patient in a printed lay language version of the imaging report. The mammogram was read with the assistance of CAD and tomosynthesis. FINAL ATTESTATION: By electronically signing this report, I, the attending physician, attest that I have personally reviewed the images/data for the above examination and agree with the final edited report. Read By: Abeba Pozo M.D. Read By: Jessi Rose M.D. on 02/23/2015 at 04:16:30 PM Page 2 of 2 Read By: ABEBA POZO M.D. Signed By: JESSI ROSE M.D. on 02/23/2015 at 16:16:32 Narrative 09/02/2015 9:48 AM EDT Patient Name:Andreia Krishnan : 1960 Age: 54 Gender: femaleDate of Service: 02/23/2015 eferring Phy:Kaur Pratt M.D.Account: [id number] Kaur Pratt M.D. General Pediatrics [address] [place] [address] FINAL REPORT PROCEDURE: Tomosynthesis Bilateral Screening - bilateral , Screening Mammogram with CAD - bilateral HISTORY: Patient is 54 years old and is seen for screening mammography. The patient has no personal history of cancer. The patient has no family history of breast cancer. COMPARISON: No prior imaging studies are available for comparison. MAMMOGRAM TECHNIQUE: The following mammographic views were obtained: bilateral craniocaudal; bilateral mediolateral oblique; and bilateral tomosynthesis images were obtained. Computer assisted detection was used in the interpretation of this study. MAMMOGRAM FINDINGS: The breast tissue is heterogeneously dense, which may obscure detection of small masses. There is an asymmetry measuring 5 mm in the middle third lateral aspect of the right breast located 5 centimeters from the nipple. The findings are confirmed with CC tomosynthesis. In the left breast, no masses, suspicious microcalcifications or architectural distortion are evident. Procedure Note Jessi Rose - 10/24/2020 Patient Name:Andreia Krishnan : 1960 Age: 54 Gender: femaleDate of Service:02/23/2015 [facility] Burnett:Kaur Pratt M.D.Account: [id number] Kaur Pratt M.D. General Pediatrics [address] [place] [address] FINAL REPORT PROCEDURE: Tomosynthesis Bilateral Screening - bilateral , Screening Mammogram withCAD - bilateral HISTORY: Patient is 54 years old and is seen for screening mammography. The patienthas no personal history of cancer. The patient has no family history of breast cancer. COMPARISON: No prior imaging studies are available for comparison. MAMMOGRAM TECHNIQUE: The following mammographic views were obtained: bilateral craniocaudal;bilateral mediolateral oblique; and bilateral tomosynthesis images were obtained. Computer assisted detection was usedin the interpretation of this study. MAMMOGRAM FINDINGS: The breast tissue is heterogeneously dense, which may obscure detection ofsmall masses. There is an asymmetry measuring 5 mm in the middle third lateral aspect ofthe right breast located 5 centimeters from the nipple. The findings are confirmed with CC tomosynthesis. In the left breast, no masses, suspicious microcalcifications orarchitectural distortion are evident. IMPRESSION: BI-RADS Assessment Category 0: Incomplete: Needs additional imaging evaluation. RECOMMENDATION: 90 Degree Lateral w/ Santos. CC Spot Compression w/ Santos. Ultrasound if finding persists. Page 1 of 2 Patient Name:Andreia Krishnan : 1960 Age: 54 Gender: femaleDate of Service:02/23/2015 [facility] Hortencia:Kaur Pratt M.D.Account: [id number] COMMUNICATION: The results and recommendations will be sent to the patient in a printedlay language version of the imaging report. The mammogram was read with the assistance of CAD and tomosynthesis. FINAL ATTESTATION: By electronically signing this report, I, the attending physician, attestthat I have personally reviewed the images/data for the above examination and agree with the final editedreport. Read By: Abeba Pozo M.D. Read By: Jessi Rose M.D. on 02/23/2015 at 04:16:30 PM Page 2 of 2 Read By: ABEBA POZO M.D. Signed By: JESSI ROSE M.D. on 02/23/2015 at 16:16:32 us Historical Provider IMG BI PROCEDURES Final Resu lt from Last 3 Months or Most Recently Relevant to Health Maintenance Insurance [employer] MEDICARE Care Teams X Ray Tech Relationship Specialty Start Date End Date Aspen Alcala APRN [address] [place] [address] PCP - General 06/12/22
--- OUTSIDE RECORDS SUMMARY | 2025-03-30 10:55 | XMS_ITS | Clinical Summary ---
[facility] Organization [facility] Address [address] [place] [address] Care Team Providers Care Community Organization Aide Name Role Phone Rudolph Young MD Primary Care Provider [phone] Allergies Active Allergy Reactions Criticality Noted Date Comments Amoxicillin Anaphylaxis High 03/01/2018 Ciprofloxacin Anaphylaxis,Other (S ee Comments),Unknown (See Comments) High 09/18/2014 cipro Meperidine Anaphylaxis High 03/01/2018 Erythromycin Anaphylaxis High 03/01/2018 Cephalexin Anaphylaxis High 03/01/2018 Sulfa Antibiotics Anaphylaxis High 03/01/2018 Tetanus Toxoid-Containing Vaccines Anaphylaxis High 03/01/2018 Medications [place]-3 Fatty Acids (FISH OIL) 1000 MG capsule capsule Take by mouth Daily With Breakfast. Active propranolol (INDERAL) 10 MG tablet Take 1 tablet by mouth 2 (Two) Times a Day. Active acetaminophen (TYLENOL) 325 MG tablet Take 2 tablets by mouth Every 6 (Six) Hours As Needed for Mild Pain. 4 Active aluminum-magnes ium hydroxide-simet hicone (MAALOX MAX) 400-400-40 MG/5ML suspension Take 15 mL by mouth Every 6 (Six) Hours As Needed for Indigestion or Heartburn. 4 Active calcium carbonate (TUMS) 500 MG chewable tablet Chew 2 tablets 3 (Three) Times a Day As Needed for Indigestion or Heartburn. 4 Active levETIRAcetam (KEPPRA) 1000 MG tablet Take 1 tablet by mouth Every 12 (Twelve) Hours. 4 Active mirtazapine (REMERON) 15 MG tablet Take 1 tablet by mouth Every Night. 4 Active saccharomyces boulardii (FLORASTOR) 250 MG capsule Take 2 capsules by mouth 2 (Two) Times a Day. 4 Active ondansetron (Zofran) 4 MG tablet Take 1 tablet by mouth Every 8 (Eight) Hours As Needed for Nausea or Vomiting. 4 Active Lidocaine 4 % Place 1 patch on the skin as directed by provider Daily. Remove & Discard patch within 12 hours or as directed by MD 4 Active folic acid (FOLVITE) 1 MG tablet Take 1 tablet by mouth Daily. 4 Active multivitamin with minerals tablet tablet Take 1 tablet by mouth Daily. 4 Active Artificial Tear Ointment (artificial tears) ophthalmic ointment Administer 1 Application to both eyes Every 1 (One) Hour As Needed (dry eyes). 4 Active famotidine (PEPCID) 20 MG tablet Take 1 tablet by mouth 2 (Two) Times a Day Before Meals. 4 Active midodrine (PROAMATINE) 5 MG tablet Take 1 tablet by mouth 3 (Three) Times a Day Before Meals. 4 Active thiamine (VITAMIN B1) 100 MG tablet Take 1 tablet by mouth Daily. 4 Active Active Problems Problem Noted Date Diagnosed Date Severe malnutrition 12/13/2023 Orthostatic hypotension 12/13/2023 Cirrhosis, alcoholic 12/12/2023 Clostridioides difficile diarrhea 12/12/2023 Electrolyte abnormality 12/11/2023 Diarrhea 12/11/2023 Pancreatitis 12/11/2023 Alcoholic cirrhosis of liver without ascites Abnormal stress test 02/28/2018 Overview (02/28/2018): Added automatically from request for surgery [id number] Family History Medical History Relation Name Comments Heart disease Brother Heart disease Father Heart disease Sister Relation Name Status Comments Brother Alive Father Alive Mother Alive Sister Alive Social History Tobacco Use Types Packs/Day Years Used Date Smoking Tobacco: Never Smokeless Tobacco: Never Alcohol Use Standard Drinks/Week Comments Yes 0 (1 standard drink = 0.6 oz pur e alcohol) socially [facility] Utilities Answer Date Recorded In the past 12 months has th e electric, gas, oil, or water [employer] threatened to shut off services in your home? No 12/12/2023 AUDIT-C Answer Date Recorded Q1: How often do you have a drink containing alcohol? 4 or more times a week 12/12/2023 Q2: How many drinks containi ng alcohol do you have on a typical day when you are drinking? 3 or 4 Q3: How often do you have si x or more drinks on one occasion? Never 12/12/2023 Overall Financial Resource Strain (CARDIA) Answe r Date Recorded How hard is it for you to pa y for the very basics like food, housing, medical care, and heating? Not very hard 12/12/2023 [facility] - Occupational Stress Questionnaire Answer Date Recorded Do you feel stress - tense, restless, nervous, or anxious, or unable to sleep at night because your mind is troubled all the time - these days? Not at all 12/12/2023 Exercise Vital Sign Answer Date Recorde d On average, how many days pe r week do you engage in moderate to strenuous exercise (like a brisk walk)? 0 days 12/12/2023 On average, how many minutes do you engage in exercise at this level? 0 min 12/12/2023 Hunger Vital Sign Answer Date Recorded Within the past 12 months, y ou worried that your food would run out before you got the money to buy more. Never true 12/12/19 24 Within the past 12 months, t he food you bought just didn't last and you didn't have money to get more. Never true 12/12/2023 PRAPARE - Transportation Answer Date Re corded In the past 12 months, has l ack of transportation kept you from medical appointments or from getting medications? No 11/17 In the past 12 months, has l ack of transportation kept you from meetings, work, or from getting things needed for daily living? No 12/12/2023 Abuse Screen Answer Date Recorded Feels Unsafe at Home or Work/School no 12/12/2023 Feels Threatened by Someone no 11/17 Does Anyone Try to Keep You From Having Contact with Others or Doing Things Outside Your Home? no 12/12/2023 Physical Signs of Abuse Present no 12/12/2023 Housing Stability Answer Date Recorded Current Living Arrangements home 11/17 Potentially Unsafe Housing Conditions none 12/12/2023 Family and Community Support Answer Mazin e Recorded If for any reason you need h elp with day-to-day activities such as bathing, preparing meals, shopping, managing finances, etc., do you get the help you need? I get all the help I need 12/12/2023 How often do you feel lonely or isolated from those around you? Never 12/12/2023 Employment Answer Date Recorded Do you want help finding or keeping work or a job? I do not need or want help 12/12/2023 Disabilities Answer Date Recorded Difficulty Concentrating, Remembering or Making Decisions no 12/12/2023 Difficulty Managing Errands Independently no 12/12/2023 Education Answer Date Recorded Do you want help with school or training? For example, starting or completing job training or getting a high school diploma, GED or equivalent No 12/12/2023 Preferred Language Trinidadian 12/12/2023 PHQ-2 Answer Date Recorded Retired PHQ-9: Brief Depression Severity Measure Score 0 12/12/2023 Comments No Sex and Gender Information Value Date Recorded Sex Assigned at Not on file Legal Sex Female 2:31 PM EDT Gender Identity Not on file Sexual Orientation Not on file Last Filed Vital Signs Vital Sign Reading Time Taken Comments Blood Pressure 104/58 12/28/2023 10:25 AM EDT Pulse 85 12/28/2023 10:25 AM EDT Temperature 36.1 C (96.9 F) 12/28/2023 10:25 AM EDT Respiratory Rate 18 12/28/2023 10:25 AM EDT Oxygen Saturation 99% 12/28/2023 10:25 AM EDT Inhaled Oxygen Concentration - - Weight 59.9 kg (132 lb) 12/11/2023 11:27 PM EDT Height 157.5 cm (5' 2.01 ) 12/11/2023 11:27 PM E DT Body Mass Index 24.14 12/11/2023 11:27 PM EDT Plan of Treatment Health Maintenance Due Date Last Done Comments DXA SCAN 1959 COLOGUARD 09/10/2004 COLON CANCER SCREENING 5 YEA R SIGMOIDOSCOPY 09/10/2004 CT COLONOGRAPHY 09/10/2004 FIT Testing (1 year) 09/10/2004 Pneumococcal Vaccine 50+ (1 of 1 - PCV) 09/10/2009 ZOSTER VACCINE (1 of 2) 09/10/2009 MAMMOGRAM 03/03/2017 03/03/2015, 01/2015, 02/23/2015 ANNUAL WELLNESS VISIT 03/04/2018 Hepatitis B (1 of 3 - Risk 3 -dose series) 2019 FECAL OCCULT BLOOD TEST 12/10/2024 12/11/2023 INFLUENZA VACCINE 01/16/2025 06/07/2023, , 03/18/2018, Additional history exists COVID-19 Vaccine ( - 2024- 6 season) 2025 04/14/2021, 07/14/2020, 06/16/2020 COLONOSCOPY 12/10/2033 12/11/2023 COLORECTAL CANCER SCREENING 12/10/2033 HEPATITIS C SCREENING Completed 12/11/2023, 022 Procedures Procedure Name Priority Date/Time Associated Diagnosis Comments POCT OCCULT BLOOD STOOL STAT 12/11/2023 5:03 PM EDT HEPATITIS PANEL, ACUTE Add-On 12/11/2023 4:30 PM EDT SCANNED - COLONOSCOPY 12/11/2023 from Last 3 Months or Most Recently Relevant to Health Maintenance Results * (ABNORMAL) POC Occult Blood Stool (12/11/2023 5:03 PM EDT) Fecal Occult Blood Positive(A) [facility] Lot Number [id number] [facility] Expiration Date 06/12 [facility] DEVELOPER LOT NUMBER [id number] [facility] DEVELOPER EXPIRATION DATE 02/11 [facility] Positive Control Positive [facility] Negative Control Negative [facility] Stool Specimen from rectum / Unknown Juan Jose Ruiz CLINICAL ADMINISTRATIVE COORDINATOR POINT OF CARE TEST ORDERABLES F inal Result [facility]
[address] [place] [address], * Hepatitis Panel, Acute (12/11/2023 4:30 PM EDT) Hepatitis B Surface Ag Non-Reacti ve Non-Reacti ve 12/11/2023 11:52 PM EDT [facility] Hep A IgM Non-Reacti ve Non-Reacti ve 12/11/2023 11:52 PM EDT [facility] Hep B C IgM Non-Reacti ve Non-Reacti ve 12/11/2023 11:52 PM EDT [facility] Hepatitis C Ab Non-Reacti ve Non-Reacti ve 12/11/2023 11:52 PM EDT [facility] Blood Venipuncture / Unknown 12/11/2023 4:30 PM EDT 12/11/2023 4:35 PM EDT Narrative [facility] - 12/11/2023 11:52 PM EDT Results may be falsely decreased if patient taking Biotin. Danni Cervantes MD LAB BLOOD ORDERABLES Final Resul t [facility]
[address] [place] [address], * Colonoscopy, Scan (12/11/2023) [facility] CHART REVIEW TABS Final Re sult from Last 3 Months or Most Recently Relevant to Health Maintenance Additional Health Concerns Infection Onset Date Last Indicated C.difficile 12/12/2023 12/12/2023 Insurance MEDICARE ADVANTAGE HMO Advance Directives * No CPR (Do Not Attempt to Resuscitate) (Latest Code Status on File) Date Activated Date Inactivated Comments 12/11/2023 8:17 PM 12/28/2023 1:29 PM Question Answer Comments Code Status (Patient has no pulse and is not breathing): No CPR (Do Not Attempt to Resuscitate) Medical Interventions (Patie nt has pulse or is breathing): Limited Support Medical Intervention Limits: No intubation (DNI) Level Of Support Discussed With: Patient Care Teams Community Organization Aide Relationship Specialty Start Date End Date Rudolph Young MD [address] [facility] [address] [place] [address] PCP - General Adolescent Medicine 09/16/24
--- OUTSIDE RECORDS SUMMARY | 2025-03-30 10:55 | XMS_ITS | Clinical Summary ---
Author Organization [facility] Address [address] [place] [address] Phone Care Team Providers Care Coremaker Pipe Name Role Phone AKIL HERNÁNDEZ, QAMAR Primary Care Provider [phone] Delilah HERNÁNDEZ, Valerio Unavailable [phone] Reason for Visit and Chief Complaint The Chief Complaint is: S/P Left MARIMAR Problems Includes: Problems addressed during this encounter and other active Problems All Visits Onset Date Resolved Date Provider Condition S tatus Joint Pain Hip Left 09/24/2024 Juice Ruiz Active Last Documented On 12:55PM ; [facility], [facility] Plan of Treatment Patient screened for future fall risk: documentation of any fall with injury in past year. - Last Documented On 11/27/2024 11:18AM ; [facility] Fall Risk Assessment: This patient has been [...] with the patient. - Last Documented On 11/27/2024 11:18AM ; [facility], [facility] Future Appointments Date Time Location Provi jean pierre Follow Up 10/22/2025 9:30AM [facility] CHASE Walton PA-C Last Documented On 5 10:12AM ; [facility], [facility] Instructions to patient Lose weight Last Documented On 8:39AM ; [facility], [facility] Assessments Includes: Assessments from this encounter Findings 5 week postop s/p left MARIMAR that took place on 10/21/24 - Last Documented On 11/27/2024 11:18AM ; [facility], [facility] Patient is progressing well postoperatively. Incision is well-healed. Continue PT and HEP. Counseled on lifetime antibiotic prophylaxis prior to dental procedures. Continue to progress activities as tolerated. We will have patient follow-up at three-month postop. Patient expressed verbal understanding of this plan. They are to call with any concerns in the meantime. - Last Documented On 11/27/2024 11:18AM ; [facility] Instructions Includes: Instructions from this encounter Instructions to patient Lose weight Last Documented On 8:39AM ; [facility] Medical Equipment - Implanted Devices Includes: Current Devices No Medical Equipment Recorded Medications Includes: Medications discussed during this encounter and other current Medications Current Medications (continue as prescribed) Meloxicam 15 MG Oral Tablet 03/05/2025 - 04/04/2025 Pr ovider: Alison Walton PA-C Diagnosis: once a day Last Documented On 9:45AM By ANGELIA Phan ; [facility] Magnesium Gluconate 500 (27 Mg) MG Oral Tablet 025 Provider: Diagnosis: Last Documented On 3:24PM By Brook Robertson ; [facility] Benadryl Allergy 25 MG Oral Capsule 10/13/2024 Provi jean pierre: Diagnosis: Last Documented On 3:23PM By Brook Robertson ; [facility] Multivitamin Adults Oral Tablet 10/13/2024 Provider: Diagnosis: Last Documented On 3:23PM By Brook Robertson ; [facility] Keppra 1000 MG Oral Tablet 09/24/2024 Provider: Diagnosis: Last Documented On 3:24PM By Calos Finn [facility] Propranolol HCl 10 MG Oral Tablet 09/01/2024 Provide r: Diagnosis: Last Documented On 3:24PM By Calos Santos ; [facility] Past Medications on file dexAMETHasone Sodium Phosphate 4 MG/ML Injection Solution Prefilled Syringe 01/23/2025 - 02/22/2025 Provider: Alison Walton PA-C Diagnosis: apply as directed USE WITH IONTOPHORESIS FOR PT Last Documented On 12:47PM By Sheron Fontaine ; [facility] Meloxicam 15 MG Oral Tablet 01/23/2025 - 02/22/2025 Pr ovider: Alison Walton PA-C Diagnosis: once a day Last Documented On 12:47PM By Sheron Fontaine ; [facility], [facility] oxyCODONE HCl 5 MG Oral Tablet 10/29/2024 - 11/04/2024 Provider: Valerio Mazariegos MD Diagnosis: 1 po q 6 to 8 hrs prn pain Last Documented On 2:16PM By Valerio Mazariegos ; [facility] Doxycycline Hyclate 100 MG O ral Tablet 10/20/2024 - 10/23/2024 Provider: Valerio Mazariegos MD Diagnosis: twice a day Last Documented On 4:13PM By Valerio Mazariegos ; [facility] oxyCODONE HCl 5 MG Oral Tablet 10/19/2024 - 10/23/2024 Provider: Valerio Mazariegos MD Diagnosis: [id number] ONE TABLET PO Q 4-6H FOR POST OP PAIN Last Documented On 9:49PM By Valerio Mazariegos ; [facility], [facility] Cefadroxil 500 MG Oral Capsule 10/19/2024 - 10/22/2024 Provider: Valerio Mazariegos MD Diagnosis: 1 tablet twice a day for 3 days Last Documented On 9:49PM By Valerio Mazariegos ; [facility], [facility] Meloxicam 15 MG Oral Tablet 10/19/2024 - 11/02/2024 Pr ovider: Valerio Mazariegos MD Diagnosis: once a day TAKE ONE P/O ONE TIME A DAY UNTIL FIN ISHED Last Documented On 9:49PM By Valerio Mazariegos ; [facility], [facility] Ondansetron HCl 4 MG Oral Tablet 10/19/2024 - 10/27/19 Provider: Valerio Mazariegos MD Diagnosis: 1-2 po q 4-6h PRN Nausea Last Documented On 9:49PM By aVlerio Mazariegos ; [facility] Colace 100 MG Oral Capsule 10/19/2024 - 11/18/2024 Pro vider: Valerio Mazariegos MD Diagnosis: 1-2 tabs daily Last Documented On 9:49PM By Valerio Mazariegos ; [facility] Aspirin Adult Low Strength 8 1 MG Oral Tablet Delayed Release 10/19/2024 - 11/30/2024 Provider: Valerio belcher MD Diagnosis: twice a day Last Documented On 9:49PM By Valerio Mazariegos ; [facility] Acetaminophen 500 MG Oral Tablet 10/19/2024 - 11/19/19 Provider: Valerio Mazariegos MD Diagnosis: Take 2 tablets by mouth every 8 hours Last Documented On 9:49PM By Valerio Mazariegos ; [facility] Medications Administered Includes: Administered Medications from this encounter No Administered Medications Recorded Vital Signs Includes: Vital Signs from this encounter Vital Name 11/27/2024 08:54A Height (in) 62 Weight (lb) 176 Body Mass Index 32.2 Body Surface Area 1.8 Note: tm Last Documented: On 11/27/2024 8:54AM ; [facility] Results Includes: Results discussed during this encounter [...] shortness breast lower extremity swelling, calf pain. Social History Description Last Updated Alcohol use 09/24/2024 Last Documented On 5 8:39AM ; [facility] Caffeine use 09/24/2024 Last Documented On 5 8:39AM ; [facility] No recent change in diet 09/24/2024 Last Documented On 5 8:39AM ; [facility], [facility] Not a current smoker. 09/24/2024 Last Documented On 5 8:39AM ; [facility] Not exercising regularly 09/24/2024 Last Documented On 5 8:39AM ; [facility] Not using drugs 09/24/2024 Last Documented On 5 8:39AM ; [facility] Smoking Status Unknown Procedures and Surgical History Includes: Procedures from this encounter Procedures Code Diagnosis Performing Provider Service Location Service Date PELVIS w/ 2-3 VIEW HIP (LEFT) 72540 Unilateral primary osteoarthritis, left hip, Presence of left artificial hip joint Alison Walton PA-C [facility] 11/27/2024 Last Documented On 5 1:06PM ; [facility], [facility] History of Blood Tests August, Dr. patel Last Documented On 5 8:39AM ; [facility] Surgical History Last Updated History of appendectomy 09/24/2024 Last Documented On 5 8:39AM ; [facility] History of History of Gallbladder 2024 Last Documented On 5 8:39AM ; [facility], [facility] History of hysterectomy 09/24/2024 Last Documented On 5 8:39AM ; [facility] History of total hip replacement 025 Last Documented On 5 8:39AM ; [facility] Medical History Includes: Medical History addressed during this encounter Description Last Updated seizures 09/24/2024 Last Documented On 5 8:39AM ; [facility] History of Anemia 09/24/2024 Last Documented On 5 8:39AM ; [facility] History of arthritis 09/24/2024 Last Documented On 5 8:39AM ; [facility] History of Irregular Heartbeat 5 Last Documented On 5 8:39AM ; [facility] History of Liver Disease 09/24/2024 Last Documented On 5 8:39AM ; [facility] Family History Includes: Family History addressed during this encounter Description Last Updated Family history of heart disease 09/25/19 Last Documented On 5 8:39AM ; [facility] Stroke / Seizures 09/24/2024 Last Documented On 5 8:39AM ; [facility] Review of Systems Includes: Review of Systems from this encounter Systemic: Feeling tired. No recent weight loss [...] and Immunologic: Complaint of seasonal allergic reaction. Mental Status Includes: Mental Status from this encounter Description No anxiety Functional Status Includes: Functional Status from this encounter No Functional Status Recorded Physical Exam Includes: Physical Exam from this encounter Allergies Includes: Active Allergies Substance Type Reaction Onset Date Resolved Date Statu s Tetanus Immune Globulin Allergy 10/13/2024 Active Last Documented On 03/05/2025 9:13AM ; [facility] Note: Lip Swelling-Major Sulfa Antibiotics Allergy 09/24/2024 A ctive Last Documented On 03/05/2025 9:13AM ; [facility] Note: Anaphylaxis-Major Keflex Allergy 09/24/2024 Active Last Documented On 03/05/2025 9:13AM ; [facility] Note: Anaphylaxis-Major Erythromycin Allergy 10/13/2024 Active Last Documented On 03/05/2025 9:13AM ; [facility] Note: Anaphylaxis-Major Demerol Allergy 01/22/2025 Active Last Documented On 5 9:13AM ; [facility] Ciprofloxacin Allergy Hives/Weal, Anaphylaxis 10/14/2024 Active Last Documented On 5 9:13AM ; [facility] Amoxicillin Allergy 09/24/2024 Active Last Documented On 5 9:13AM ; [facility] Note: Anaphylaxis-Major Encounters Encounter Provider Location Date Check-In Time Check- Out Time Diagnosis Post Op Alison Walton PA-C [facility] 5 8:36AM 9:11AM Insurance Includes: Active Insurance Policies Plan Name Member ID Group # Subscriber Relationship Effect jens Dates 1 - [employer] [id number] September Eulogio Self Clinical Notes Includes: Clinical Notes from this encounter * Progress note Date Encounter Last Documented by 11/27/2024 Post Op Last documented on 11/27/2024; 11:18 AM, Alison De Dios; [facility] Active Problems & Conditions - Joint [...] Previous Tests Musculoskeletal: History of Blood Tests AugustDr. patel. Counseling/Education Tobacco non-user. use of tobacco assessment [...] Care Team - QAMAR BARNARD MD - [employer] Health Reminders - Assess BMI satisfied 11/27/2024. - Follow Up Plan BMI Management satisfied 11/27/2024. User Defined 5 5 week postop s/p left MARIMAR that took place on 5/6/25 Patient is progressing well postoperatively. Incision is well-healed. Continue PT and HEP. Counseled on lifetime antibiotic prophylaxis prior to dental procedures. Continue to progress activities as tolerated. We will have patient follow-up at three-month postop. Patient expressed verbal understanding of this plan. They are to call with any concerns in the meantime.
[2025-03-30 11:21] LABS: Hematocrit 36.6 % (37.0-47.0); Hemoglobin 12.8 g/dL (12.2-16.2); Immature Granulocytes % 0.7 %; Mean Corpuscular HGB Conc 35.0 g/dL (31.8-35.4); Mean Corpuscular Hemoglobin 32.7 pg (27.0-31.2); Mean Corpuscular Volume 93.4 fl (81-99); Nucleated Red Blood Cells % 0 %; Platelet Count 113 K/mm3 (142-424); Red Blood Count 3.92 M/mm3 (4.20-5.40); Red Cell Distribution Width-SD 45.9 fL; White Blood Count 7.3 K/mm3 (4.8-10.8)
[2025-03-30 11:28] LABS: Ammonia 42 umol/L (9-30); INR 1.08 (0.9-1.1); Prothrombin Time 11.9 seconds (10.1-12.5)
[2025-03-30 11:53] LABS: Albumin Level 3.8 g/dl (3.5-5.0); Chloride 93 mmol/L (98-107); Potassium 4.8 mmoL/L (3.5-5.1); Sodium 126 mmol/L (136-145)
[2025-03-30 11:55] LABS: Alanine Aminotransferase 20 U/L (12-78); Aspartate Amino Transferase 35 U/L (14-36); Blood Urea Nitrogen 15 mg/dl (7-17); Creatinine,Serum 0.70 mg/dl (0.52-1.04); Estimated Glomerular Filt Rate 84 ml/min (>60); GFR (African American) 102 ML/MIN (>60)
[2025-03-30 11:56] LABS: Albumin/Globulin Ratio 1.0 (1.1-1.8); Alkaline Phosphatase 202 U/L (38-126); Anion Gap 11.8 mEq/L (5-15); Bilirubin,Total 1.6 mg/dl (0.2-1.3); Calcium 8.8 mg/dl (8.4-10.2); Carbon Dioxide 26 mmol/L (22.0-30.0); Globulin 4.0 g/dL (1.3-3.2); Glucose 69 mg/dl (74-100); Iron 93 ug/dL (37-170); Total Protein,Serum 7.8 g/dl (6.3-8.2)
[2025-03-30 12:06] LABS: Total Iron Binding Capacity 407 ug/dL (265-497)
[2025-03-30 12:32] LABS: Ferritin 21.2 ng/ml (11.1-264)
== END 2025-03-30 23:59 | disposition home or self-care (01) ==
LOC: LAB 10:45
PROVIDERS: PCP Internal Medicine Adolescent Medicine; Visit Provider Nurse Practitioner Family
DX: K74.60 Unspecified cirrhosis of liver (principal)
CPT/HCPCS: 36415; 80053; 80321; 82105; 82140; 82728; 83540; 83550; 85025; 85610

== ENCOUNTER 2025-04-13 07:45 | Outpatient (CLI) | payer MEDICARE, SELFPAY ==
--- OUTSIDE RECORDS SUMMARY | 2025-04-13 07:47 | XMS_ITS | Encounter Summary ---
Author Organization [employer] ([place], [place], [place], [place]) Address [address] [place] [address] Care Team Providers Care Assistant Toddler Teacher Name Role Phone Rudolph Young MD Primary Care Provider [phone] Encounter Details Date Type Department Care Team (Late st Contact Info) Description 10/20/2024 Outside [facility] [address] [place] [address] Provider, Not In System [place] [...] Date Wale rded Speak language other than Angolan at home Not on file 03/19/2024 Want [...] on filedocumented in this encounter Care Teams Assistant Toddler Teacher Relationship Specialty Start Date End Date Rudolph Young MD [address] [place] [address] PCP - General Adolescent Medicine 03/19/24 documented as of this encounter
--- OUTSIDE RECORDS SUMMARY | 2025-04-13 07:47 | XMS_ITS | Clinical Summary ---
Author Organization [facility] Address [address] [place] [address] Care Team Providers Care Kiln Labourer Name Role Phone Cari Aspen De Dios APRN Primary Care Provider + [phone] Allergies Active Allergy Reactions Criticality Noted Date Comments Amoxicillin Anaphylaxis,Unknown - Patient states they do not know rxn details High 02/09/2015 Cephalexin Anaphylaxis,Unknown - Patient states they do not know rxn details,Other - please document in the comment field High 09/18/2014 Keflex Ciprofloxacin Other - please document in the comment field,Unknown - Patient states they do not know rxn details Low 09/18/2014 cipro Erythromycin Anaphylaxis,Other - please document in the comment field,Unknown - Patient states they do not know rxn details High 09/18/2014 erythromycin Meperidine Anaphylaxis,Unknown - Patient states they do not know rxn details High 02/09/2015 Sulfa Drugs Anaphylaxis High 03/01/2018 Tetanus Toxoid-Containing Vaccines Anaphylaxis,Other - please document in the comment [...] Encounters Date Type Department Care Team Description 04/09/2025 Telephone [facility] [address], [address] [place] [address] Harjinder Adam MD 01/12/2025 2:00 PM EDT Consult [facility] [address], [address] [place] [address] Harjinder Adam MD Seizure disorder ([facility]) 01/12/2025 Travel from Last 3 Months Immunizations [...] drink first t lianne in the morning (EYE-SITE SAFETY COORDINATOR) to steady your nerves or to get [...] 01/12/2025 1:35 PM EDT Plan of Treatment Upcoming Encounters Date Type Department Care Team (Late st Contact Info) Description 07/07/2025 10:00 AM EST Office Visit [place] [facility] [address] [place] [address] Harjinder Adam MD [address] [place] [address] Health Maintenance Due Date Last Done Comments [facility]-Bone Density Scan 1960 [facility]-Depression Screening 1960 [facility]-Medicare Annual Wellness (AWV) 1960 [facility]-Infant/Child/Adol SDOH Screenings 1960 [facility]- SDOH Screenings 09/10/1977 [facility]-Adult SDOH Screenings 09/10/1977 [facility]-DTaP,Tdap,and Td Vaccines (1 - Tdap) 09/10/1978 CT Colonography 09/10/2004 Colonoscopy 09/10/2004 FIT-DNA 09/10/2004 FIT 09/10/2004 Sigmoidoscopy 09/10/2004 [facility]-Breast Cancer Screening 02/23/2017 02/23/2015 [facility]-Zoster Vaccines (2 of 2) 10/16/2024 08/21/2024 FOBT 12/10/2024 12/11/2023 [facility]-Colorectal Cancer Screening 12/10/2024 LBL-PVTOG-43 Vaccine ( - season) 2025 04/14/2021, 07/14/2020, 06/16/2020 [facility]-Influenza Vaccine (#1) 02/16/202504/17, 06/07/2023, 04/11/2022, Additional history exists [facility]-RSV Vaccine: 60+ Years or (1 - 1-dose 75+ series) 09/10/2034 [facility]-Hepatitis C Screening Completed 06/12/2022 [facility]-Pneumococcal Vaccine: 50+ Years Completed 08/21/2024 [facility]-Obesity Intervention Completed 01/12/2025, 0406/2023 HPV Vaccines Aged Out No longer eligi [...] Antibody Negative Negative 06/13/2022 12:35 AM EST [facility] Blood Venous blood specimen / Unknown Venipuncture / Unknown 06/12/2022 11:25 PM EST 06/12/2022 11:38 PM EST Teddy Borrego MD LAB BLOOD ORDERABLES Fi nal Result [facility] [address] [place] [address] * Mammography Breast Screening Tomosynthesis Bilateral (02/23/2015 8:03 AM EDT) Anatomical Region Laterality Modality Breast Bilateral Mammography Impressions 09/02/2015 9:48 AM EDT BI-RADS Assessment Category 0: Incomplete: Needs additional imaging evaluation. RECOMMENDATION: 90 Degree Lateral w/ Santos. CC Spot Compression w/ Santos. Ultrasound if finding persists. Page 1 of 2 Patient Name:Andreia Krishnan : 1960 Age: 54 Gender: femaleDate of Service: 02/23/2015 lyubov Burnett:Kaur Pratt M.D.Account: [id number] COMMUNICATION: The results and recommendations will be [...] By: Abeba Pozo M.D. Read By: Jessi Gottlieb M.D. on 02/23/2015 at 04:16:30 PM Page 2 of 2 Read By: ABEBA POZO M.D. Signed By: JESSI GOTTLIEB M.D. on 02/23/2015 at 16:16:32 Narrative 09/02/2015 9:48 AM EDT Patient Name:Andreia Krishnan : 1960 Age: 54 Gender: femaleDate of Service: 02/23/2015 lyubov Burnett:Kaur Pratt M.D.Account: [id number] Kaur Pratt M.D. General Pediatrics [address] [place] [address] FINAL REPORT PROCEDURE: Tomosynthesis Bilateral Screening - [...] or architectural distortion are evident. Procedure Note MandyJessi ware Nyasia - 10/24/2020 Patient Name:Andreia Krishnan : 1960 Age: 54 Gender: femaleDate of Service:02/23/2015 lyubov Burnett:Kaur Pratt M.D.Account: [id number] Kaur Pratt M.D. [facility] [address] [place] [address] FINAL REPORT PROCEDURE: Tomosynthesis Bilateral Screening - [...] 1960 Age: 54 Gender: femaleDate of Service:02/23/2015 lyubov Burnett:Kaur Pratt M.D.Account: [id number] COMMUNICATION: The results and recommendations will be [...] By: Abeba Pozo M.D. Read By: Jessi Gottlieb M.D. on 02/23/2015 at 04:16:30 PM Page 2 of 2 Read By: ABEBA POZO M.D. Signed By: JESSI GOTTLIEB M.D. on 02/23/2015 at 16:16:32 us Historical Provider IMG BI PROCEDURES Final Resu lt from Last 3 Months or Most Recently Relevant to Health Maintenance Insurance MEDICARE Care Teams Kiln Labourer Relationship Specialty Start Date End Date Aspen Alcala, KARO [address] [place] [address] PCP - General 06/12/22
--- OUTSIDE RECORDS SUMMARY | 2025-04-13 07:47 | XMS_ITS | Referral Summary ---
Author Organization [employer] ([place], [place], [place], [place]) Address [address] [place] [address] Care Team Providers Care Splicer Machine Operator Name Role Phone Rudolph Young MD Primary Care Provider [phone] Allergies Active Allergy Reactions Criticality Noted Date [...] Date Wale rded Speak language other than Ukrainian at home Not on file 03/19/2024 Want [...] of Treatment Not on file Insurance [facility] HUMANA MEDICARE HMO Care Teams Splicer Machine Operator Relationship Specialty Start Date End Date Rudolph Young MD [address] [place] [address] PCP - General Adolescent Medicine 03/19/24
--- OUTSIDE RECORDS SUMMARY | 2025-04-13 07:47 | XMS_ITS | Clinical Summary ---
Author Organization [facility] Address [address] [place] [address] Care Team Providers Care Corporate Lawyer Name Role Phone Rudolph Young MD Primary Care Provider [phone] Allergies Active Allergy Reactions Criticality Noted Date Comments Amoxicillin Anaphylaxis High 03/01/2018 Ciprofloxacin Anaphylaxis,Other (S ee Comments),Unknown (See Comments) High 09/18/2014 cipro Meperidine Anaphylaxis High 03/01/2018 Erythromycin Anaphylaxis High 03/01/2018 Cephalexin Anaphylaxis High 03/01/2018 Sulfa Antibiotics Anaphylaxis High 03/01/2018 Tetanus Toxoid-Containing Vaccines Anaphylaxis High 03/01/2018 Medications [place]-3 Fatty Acids (FISH OIL) 1000 MG capsule [...] (02/28/2018): Added automatically from request for surgery [id number] Family History Medical History Relation Name Comments Heart disease Brother Heart disease Father Heart disease Sister Relation Name Status Comments Brother Alive Father Alive Mother Alive Sister Alive Social History Tobacco Use Types Packs/Day Years Used Date Smoking Tobacco: Never Smokeless Tobacco: Never Alcohol Use Standard Drinks/Week Comments Yes 0 (1 standard drink = 0.6 oz pur e alcohol) socially [facility] Utilities Answer Date Recorded In the past 12 months has th e electric, gas, oil, or water [employer] threatened to shut off services in your [...] care, and heating? Not very hard 12/12/2023 [facility] of Occupat ional Health - Occupational Stress [...] GED or equivalent No 12/12/2023 Preferred Language Lebanese 12/12/2023 PHQ-2 Answer Date Recorded Retired PHQ-9: [...] 3 - Risk 3 -dose series) 2019 COVID-19 Vaccine (3 - Modern a risk series) 05/12/2021 04/14/2021, 07/14/2020, 06/16/2020 FECAL OCCULT BLOOD TEST 12/10/2024 12/11/2023 INFLUENZA VACCINE 01/16/2025 06/07/2023, , 03/18/2018, Additional history exists COLONOSCOPY 12/10/2033 12/11/2023 COLORECTAL CANCER SCREENING 12/10/2033 [...] 5:03 PM EDT) Fecal Occult Blood Positive(A) [facility] Lot Number [id number] [facility] Expiration Date 06/12 [facility] DEVELOPER LOT NUMBER [id number] [facility] DEVELOPER EXPIRATION DATE 02/11 [facility] Positive Control Positive [facility] Negative Control Negative [facility] Stool Specimen from rectum / Unknown Juan Jose Ruiz SERVER SUPPORT TECHNICIAN POINT OF CARE TEST ORDERABLES F inal Result [facility]
[address] [place] [id number], [place] [phone] * Hepatitis Panel, Acute (12/11/2023 4:30 PM EDT) Hepatitis B Surface Ag Non-Reacti ve Non-Reacti ve 12/11/2023 11:52 PM EDT [facility] Hep A IgM Non-Reacti ve Non-Reacti ve 12/11/2023 11:52 PM EDT [facility] Hep B C IgM Non-Reacti ve Non-Reacti ve 12/11/2023 11:52 PM EDT [facility] Hepatitis C Ab Non-Reacti ve Non-Reacti ve 12/11/2023 11:52 PM EDT [facility] Blood Venipuncture / Unknown 12/11/2023 4:30 PM EDT 12/11/2023 4:35 PM EDT Narrative [facility] - 12/11/2023 11:52 PM EDT Results may be falsely decreased if patient taking Biotin. Danni Cervantes MD LAB BLOOD ORDERABLES Final Resul t [facility]
[address] [place] [address], * Colonoscopy, Scan (12/11/2023) [facility] CHART REVIEW TABS Final Re sult from Last 3 Months or Most Recently Relevant to Health Maintenance Additional Health Concerns Infection Onset Date Last Indicated C.difficile 12/12/2023 12/12/[address] [place] [address] MEDICARE ADVANTAGE HMO Advance Directives * No [...] Of Support Discussed With: Patient Care Teams Corporate Lawyer Relationship Specialty Start Date End Date Rudolph Young MD [address] [facility] [address] [address] PCP - General Adolescent Medicine 09/16/24
--- OUTSIDE RECORDS SUMMARY | 2025-04-13 07:47 | XMS_ITS | Encounter Summary ---
Author Organization Healthcare Address [address] [place] [address] Care Team Providers Care Limehouse Worker Name Role Phone Aspen Alcala APRN Primary Care Provider Encounter Details Date Type Department Care Team (Late st Contact Info) Description 04/09/2025 Telephone [place] [facility] [address], [address] [place] [address] Harjinder Adam MD [address] [place] [address] Social History Tobacco Use Types Packs/Day Years [...] drink first t lianne in the morning (EYE-CADDIE) to steady your nerves or to get rid of a hangover? 0 06/13/2022 CAGE Questionnaire Score 1 022 Comments Unknown Sex and Gender Information Value Date Recorded Sex Assigned at Not on file Legal Sex Female 7:57 PM EDT Gender Identity Not on file Sexual Orientation Not on file documented as of this encounter Plan of Treatment Upcoming Encounters Date Type Department Care Team (Late st Contact Info) Description 07/07/2025 10:00 AM EST Office Visit [place] [facility] [address] [place] [address] Harjinder Adam MD [address] [place] [address] documented as of this encounter Visit Diagnoses Not on filedocumented in this encounter Additional Health Concerns Assessment Noted Time A fall risk assessment has been complete d for the patient 09/17/2023 12:59 PM EDT A Body Mass Index follow-up plan has been documented for the patient 01/12/2025 4:36 PM EDT documented as of this encounter Care Teams Limehouse Worker Relationship Specialty Start Date End Date Aspen Alcala, KARO [address] [place] [address] PCP - General 06/12/22 documented as of this encounter
--- OUTSIDE RECORDS SUMMARY | 2025-04-13 07:47 | XMS_ITS | Clinical Summary ---
Author Organization [employer] ([place], [place], [place], [place]) Address [address] [place] [address] Care Team Providers Care Radio Interference Expert Name Role Phone Rudolph Young MD Primary Care Provider [phone] Allergies Active Allergy Reactions Criticality Noted Date [...] Date Wale rded Speak language other than Beninese at home Not on file 03/19/2024 Want [...] 1960 Sigmoidoscopy 1960 Depression Screening (12+) 1971 HIV Screening 09/10/1974 Hepatitis C Screening 09/10/1977 DTAP/TDAP/TD VACCINES (1 - Tdap) 09/10/1978 Pap Smear 09/10/1980 Lipid Panel 09/10/2004 Pneumococcal 50+ years (1 of 1 - PCV) 09/10/2009 Shingles Vaccine (Zoster) (1 of 2) 09/10/2009 Breast Cancer Screening 03/03/2017 03/03/20 15, 02/23/2015, 02/23/2015 Respiratory Syncytial Virus (RSV) Adult or (1 - Risk 60-74 years 1-dose series) 2019 Falls Risk Screening 06/18/2024 COVID-19 VACCINE ( - season) 2025 04/14/2021, 07/14/2020, 06/16/2020 Influenza Vaccine (#1) 2025 06/07/2023 Tobacco Cessation Counseling and Screening (12+) 03/19/2025 03/19/2024 [facility] Care Teams Radio Interference Expert Relationship Specialty Start Date End Date Rudolph Young MD [address] [place] [address] PCP - General Adolescent Medicine 03/19/24
--- OUTSIDE RECORDS SUMMARY | 2025-04-13 07:47 | XMS_ITS | Clinical Summary ---
Author Organization [facility] Address [address] [place] [address] Phone Care Team Providers Care Protective Signal Repairer Name Role Phone Reilly Belcher MD Unavailable [phone] Conditions or Problems Problem Name Problem Code Onset Date Status Entry Date Provider Comment Standard Description Annotate History of C. Diff colitis Z87.19 (ICD-10-CM) Active 01/03 Lynnette Lam Personal history of other diseases of the digestive system C. Difficile colitis, recurrent 43740198 (SNOMED CT) Active 01/03 Lynnette Lam Enterocolitis Alcoholic cirrhosis of liver without ascites 582096470 (SNOMED CT) Active 01/03 Lynnette Lam Alcoholic cirrhosis Bacteriuria 40030467 (SNOMED CT) Active 01/03 Lynnette Lam Bacteriuria Urinary tract infection (UTI) 36553865 (SNOMED CT) Active 01/03 Lynnette Lam Urinary tract infectious disease E. coli infection, non-shiga toxing-produci ng B96.29 (ICD-10-CM) Active 01/03 Lynnette Lam Other Escherichia coli [E. coli] as the cause of diseases classified elsewhere Benign Essential Hypertension 63876001 (SNOMED CT) Active 01/03 Lynnette Lam Benign [...] 1 week. Indications: Clostridium Difficile Infection vancomycin 95863848222 QIE qieuser THIAMINE HCL 100 MG TABS Take 1 tablet by mouth Daily. thiamine hcl (vitamin b1) 99289510495 QIE qieuser SACCHAROMYCES BOULARDII 250 MG CAPS Take 2 capsules by mouth 2 (Two) Times a Day. saccharomyces boulardii 98294947849 QIE qieuser riFAXIMin (XIFAXAN) 550 MG tablet Take 1 tablet by mouth Every 12 (Twelve) Hours for 700 doses. Indications: Impaired Brain Function due to Liver Disease XIFAXAN QIE qieuser PROPRANOLOL HCL 10 MG TABS Take 1 tablet by mouth 2 (Two) Times a Day. propranolol 35913205591 QIE qieuser ONDANSETRON HCL 4 MG TABS Take 1 tablet by mouth Every 8 (Eight) Hours As Needed for Nausea or Vomiting. ondansetron hcl 43842684520 QIE qieuser FISH OIL 1000 MG CAPS Take by mouth Daily With Breakfast. omega 2-dpj-ccq-fish oil 51354264612 QIE qieuser multivitamin with minerals tablet tablet Take 1 tablet by mouth Daily. multivitamin with minerals tablet tablet QIE qieuser MIRTAZAPINE 15 MG TABS Take 1 tablet by mouth Every Night. mirtazapine 18572678131 QIE qieuser MIDODRINE HCL 5 MG TABS Take 1 tablet by mouth 3 (Three) Times a Day Before Meals. midodrine 56436863821 QIE qieuser LIDOCAINE PAIN RELIEF MAX ST 4 % PTC Place 1 patch on the skin as directed by provider Daily. Remove & Discard patch within 12 hours or as directed by lidocaine 30099884716 QIE qieuser LEVETIRACETAM 1000 MG TABS Take 1 tablet by mouth Every 12 (Twelve) Hours. levetiracetam 52859919227 QIE qieuser FOLIC ACID 1 MG TABS Take 1 tablet by mouth Daily. folic acid 90477365366 QIE qieuser FAMOTIDINE 20 MG TABS Take 1 tablet by mouth 2 (Two) Times a Day Before Meals. famotidine 69275134806 QIE qieuser CALCIUM CARBONATE ANTACID 500 MG CHEW Chew 2 tablets 3 (Three) Times a Day As Needed for Indigestion or Heartburn. calcium carbonate 04551825744 QIE qieuser Artificial Tear Ointment (artificial tears) [...] Hours As Needed for Mild Pain. acetaminophen 72619085912 QIE qieuser Medications Administered No information available. [...] smoking status SMOK STATUS Never smoker Toba cost accounting clerk smoking status Plan of Care No information available. Procedures No information available. Vital Signs No information available. Immunizations No information available. Advance Directives No information available.
--- NOTE | 2025-04-13 08:00 | US_ITS ---
FINAL REPORT CLINICAL HISTORY: cirrhosis follow up FINDINGS: Sonographic images of the right upper quadrant were obtained. The pancreas is obscured. Coarse echotexture of the liver probably due to cirrhosis. Status post cholecystectomy. Common duct within normal limits. Limited images of the right kidney are unremarkable. IMPRESSION: Cirrhosis. Reviewed, Interpreted and Dictated by Keyshawn Mccormack MD Transcribed by Mari Ingram Authenticated and [facility]
--- OUTSIDE RECORDS SUMMARY | 2099-06-17 19:59 | XMS_ITS | Continuity of Care Document ---
Author Organization [facility] Address [address] [place] [address] Phone Care Team Providers Care Tank Assembler Name Role Phone Mario Morales Unavailable Unavailable Advance Directives Directive Yes / No Effective Date File Name No Information Encounters Encounter Description Practice Location Reason(s) For Visit Diagnoses Date Provider Providers Copied on Encounter [facility], [address], [place], [place], [id number], [place] tel:[phone] [employer] ated No Information Andrew Martin. [address] [place], [place], [id number]. tel:[phone] Family History Family Member Type Diagnosis Age At Onset No Information Payers Payer name Insurance type Covered democrat ID Authoriza tion(s) No Information Social History Type Description Quantity Date Captured Comments Sex Female Smoking Status No Information Chief Complaint And Reason For Visit No Information Reason For Referral Reason For Referral No Information History Of Present Illness Encounter Date Complaint History Of Prese nt Illness No Information Functional Status Date Functional Assessmen t No Information Instructions Date Instruction Additional Infor mation No Information Assessments Type Assessment Date No Information Patient Care Teams Name Effective Dates (start - stop) Status Members No Information
== END 2025-04-13 23:59 | disposition home or self-care (01) ==
LOC: RAD 07:45
PROVIDERS: PCP Internal Medicine Adolescent Medicine; Visit Provider Nurse Practitioner Family
DX: K74.60 Unspecified cirrhosis of liver (principal)
CPT/HCPCS: 76705